=== PATIENT | male | born 1960 | race Caucasian/White ===

== ENCOUNTER 2018-01-16 13:44 | Inpatient (IN) | payer OTHER ==
--- NOTE | 2018-01-16 14:35 | RAD ---
HISTORY: Cough and chest pain, history of partial lobectomy COMPARISONS: May 15, 2016, CTA dated June 04, 2014 VIEWS: 1: frontal portable view of the chest at 2:20 PM FINDINGS: LINES AND TUBES: None. CARDIOMEDIASTINAL SILHOUETTE: There is enlargement of the pulmonary artery on the right. Surgical clips are noted of the left hilum. PLEURA: The costophrenic angles are sharp. No pleural abnormalities are noted. LUNG PARENCHYMA: There is diffuse emphysematous change. ABDOMEN: The upper abdomen is clear. There is no subphrenic gas. BONES AND SOFT TISSUES: No bone or soft tissue abnormalities are noted. IMPRESSION: 1. EMPHYSEMA. 2. POSTOPERATIVE CHANGE. 3. ENLARGEMENT OF THE PULMONARY ARTERIES SUGGESTIVE OF PULMONARY ARTERIAL HYPERTENSION.
[2018-01-16] MEDS ORDERED: methylPREDNISolone 125 MG* 2 ML VIAL IV ONE (15:00)
[2018-01-16] MEDS ORDERED: Albuterol/Ipratropium NEB.SOL* Albuterol 2.5 MG/Ipratropium 0.5 MG 3 ML INH ONE ×2 (15:00→15:56)
[2018-01-16 16:35] LABS: ABS Basophils 0 10^3/ul (0-0.2); ABS Eosinophils 0.1 10^3/ul (0-0.6); ABS Lymphocytes 1.7 10^3/ul (1.0-4.8); ABS Monocytes 1.3 10^3/ul (0-0.8); ABS Neutrophils 9.5 10^3/ul (1.5-7.7); ABS Nucleated RBC 0 10^3/ul; Eosinophil % 0.5 % (0-6); Hematocrit 42 % (42-52); Hemoglobin 13.8 g/dl (14.0-18.0); Lymphocyte % 13.3 % (25-47); Mean Corpuscular HGB Conc 33 g/dl (31-36); Mean Corpuscular Hemoglobin 32 pg (27-31); Mean Corpuscular Volume 96 fL (80-94); Nucleated Red Blood Cells % 0.2; Red Cell Distribution Width 14 % (10.5-15); White Blood Count 12.6 10^3/ul (3.5-10.8)
[2018-01-16] MEDS ORDERED: Aspirin TAB* 325 MG PO ONE (16:58)
[2018-01-16] MEDS ORDERED: Aspirin 81 mg CHEW TAB* 81 MG TAB.CHEW ONE (17:16)
--- NOTE | 2018-01-16 18:21 | ED ---
Bryon Lu Julia, scribed for Tuan Wall on 01/16/18 at 1458 . Shortness of Breath - HPI Summary HPI Summary: This patient is a 57 year old M presenting to [facility] with a chief complaint of SOB and chest pain for the past with week with green productive cough. Pain is 7 /10 in severity. SHx of smoking. PMHx of COPD. - History of Current Complaint Chief Complaint: EDChestPainROMI Time Seen by Provider: 01/16/18 14:52 Hx Obtained From: Patient Onset/Duration: Lasting Weeks Timing: Constant Dyspnea At: Rest Associated Signs & Symptoms: Cough (Productive), Chest Pain w/Cough Related History: Similar Episode - COPD - Allergy/Home Medications Allergies/Adverse Reactions: Allergies Allergy/AdvReac Type Severity Reaction Status Date / Time No Known Allergies Allergy Verified 05/15/16 12:18 Home Medications: Home Medications Ibuprofen TAB* [Advil TAB*] 400 - 600 mg PO Q8H PRN 01/16/18 [History Confirmed 01/16/18] PMH/Surg Hx/FS Hx/Imm Hx Endocrine/Hematology History: Denies: Hx Diabetes Cardiovascular History: Denies: Hx Congestive Heart Failure, Hx Hypertension Respiratory History: Reports: Hx Chronic Bronchitis, Hx Chronic Obstructive Pulmonary Disease (COPD), Hx Lung Cancer, Hx Pneumonia, Other Respiratory Problems/Disorders - partial lobectomy History: Denies: Hx Renal Disease Neurological History: Reports: Hx Headaches - Cancer History Cancer Type, Location and Year: [facility] [place] dx 2008 - Surgical History Surgery Procedure, Year, and Place: Partial Left lobectomy 05/2009, appendectomy 1996 Hx Anesthesia Reactions: No Infectious Disease History: No Infectious Disease History: Denies: Traveled Outside the [place] in Last 30 Days - Family History Known Family History: Positive: Hypertension - Social History Alcohol Use: Occasionally Hx Substance Use: No Substance Use Type: Reports: None Hx Tobacco Use: Yes Smoking Status (MU): Heavy Every Day Tobacco Smoker Review of Systems Positive: Chest Pain Positive: Shortness Of Breath, Cough All Other Systems Reviewed And Are Negative: Yes Physical Exam - Summary Physical Exam Summary: Appearance: Well appearing, no pain distress Skin: warm, dry, reflects adequate perfusion Head/face: normal Eyes: EOMI, GEMINI ENT: normal Neck: supple, non-tender Respiratory: bilateral wheezes Cardiovascular: RRR, pulses symmetrical Abdomen: non-tender, soft Bowel: present Musculoskeletal: normal, strength/ROM intact Neuro: normal, sensory motor intact, A&Ox3 Triage Information Reviewed: Yes Vital Signs On Initial Exam: Initial Vitals Temp Pulse Resp BP Pulse Ox 98.2 F 100 22 99/73 92 01/16/18 14:11 01/16/18 14:11 01/16/18 14:11 01/16/18 14:11 01/16/18 14:11 Vital Signs Reviewed: Yes Diagnostics - Vital Signs Vital Signs Temp Pulse Resp BP Pulse Ox 01/16/18 14:11 98.2 F 100 22 99/73 92 - Laboratory Lab Results: Lab Results 01/16/18 01/16/18 01/16/18 Range/Units 15:29 15:29 15:29 WBC 12.6 H (3.5-10.8) 10^3/ul RBC 4.40 (4.0-5.4) 10^6/ul Hgb 13.8 L (14.0-18.0) g/dl Hct 42 (42-52) % MCV 96 H (80-94) fL MCH 32 H (27-31) pg MCHC 33 (31-36) g/dl RDW 14 (10.5-15) % Plt Count (150-450) 10^3/ul MPV TNP Neut % (Auto) 75.2 (38-83) % Lymph % (Auto) 13.3 L (25-47) % [place] % (Auto) 10.7 H (0-7) % Eos % (Auto) 0.5 (0-6) % Baso % (Auto) 0.3 (0-2) % Absolute Neuts (auto) 9.5 H (1.5-7.7) 10^3/ul Absolute Lymphs (auto) 1.7 (1.0-4.8) 10^3/ul Absolute Monos (auto) 1.3 H (0-0.8) 10^3/ul Absolute Eos (auto) 0.1 (0-0.6) 10^3/ul Absolute Basos (auto) 0 (0-0.2) 10^3/ul Absolute Nucleated RBC 0 10^3/ul Nucleated RBC % 0.2 Sodium (139-145) mmol/L Potassium (3.5-5.0) mmol/L Chloride (101-111) mmol/L Carbon Dioxide (22-32) mmol/L Anion Gap (2-11) mmol/L BUN (6-24) mg/dL Creatinine (0.67-1.17) mg/dL Est GFR ( Amer) (>60) Est GFR (Non-Af Amer) (>60) BUN/Creatinine Ratio (8-20) Glucose (70-100) mg/dL Lactic Acid 1.6 (0.5-2.0) mmol/L Calcium (8.6-10.3) mg/dL Total Bilirubin (0.2-1.0) mg/dL AST (13-39) U/L ALT (7-52) U/L Alkaline Phosphatase (34-104) U/L Troponin I (<0.04) ng/mL B-Natriuretic Peptide 44 ( - 100) pg/mL Total Protein (6.4-8.9) g/dL Albumin (3.2-5.2) g/dL Globulin (2-4) g/dL Albumin/Globulin Ratio (1-3) 01/16/18 01/16/18 Range/Units 15:30 17:19 WBC (3.5-10.8) 10^3/ul RBC (4.0-5.4) 10^6/ul Hgb (14.0-18.0) g/dl Hct (42-52) % MCV (80-94) fL MCH (27-31) pg MCHC (31-36) g/dl RDW (10.5-15) % Plt Count (150-450) 10^3/ul MPV Neut % (Auto) (38-83) % Lymph % (Auto) (25-47) % [place] % (Auto) (0-7) % Eos % (Auto) (0-6) % Baso % (Auto) (0-2) % Absolute Neuts (auto) (1.5-7.7) 10^3/ul Absolute Lymphs (auto) (1.0-4.8) 10^3/ul Absolute Monos (auto) (0-0.8) 10^3/ul Absolute Eos (auto) (0-0.6) 10^3/ul Absolute Basos (auto) (0-0.2) 10^3/ul Absolute Nucleated RBC 10^3/ul Nucleated RBC % Sodium 139 (139-145) mmol/L Potassium 4.0 (3.5-5.0) mmol/L Chloride 100 L (101-111) mmol/L Carbon Dioxide 31 (22-32) mmol/L Anion Gap 8 (2-11) mmol/L BUN 12 (6-24) mg/dL Creatinine 0.73 (0.67-1.17) mg/dL Est GFR ( Amer) 141.4 (>60) Est GFR (Non-Af Amer) 110.0 (>60) BUN/Creatinine Ratio 16.4 (8-20) Glucose 93 (70-100) mg/dL Lactic Acid (0.5-2.0) mmol/L Calcium 9.6 (8.6-10.3) mg/dL Total Bilirubin 0.50 (0.2-1.0) mg/dL AST 27 (13-39) U/L ALT 19 (7-52) U/L Alkaline Phosphatase 59 (34-104) U/L Troponin I 0.04 H* 0.00 (<0.04) ng/mL B-Natriuretic Peptide ( - 100) pg/mL Total Protein 8.0 (6.4-8.9) g/dL Albumin 4.6 (3.2-5.2) g/dL Globulin 3.4 (2-4) g/dL Albumin/Globulin Ratio 1.4 (1-3) Result Diagrams: 01/16/18 15:29 01/16/18 15:30 Lab Statement: Any lab studies that have been ordered have been reviewed, and results considered in the medical decision making process. - Radiology CXR Radiology Interpretation Completed By: Radiologist - 1. EMPHYSEMA. 2. POSTOPERATIVE CHANGE. 3. ENLARGEMENT OF THE PULMONARY ARTERIES SUGGESTIVE OF PULMONARY ARTERIAL HYPERTENSION. ED Physician has reviewed this report. - EKG 1408 Cardiac Rate: NL EKG Rhythm: Sinus Rhythm - 86 BPM EKG Interpretation: no acute changes Course/Dx - Course Course Of Treatment: 57 year old M presenting to [facility] with a chief complaint of SOB and chest pain for the past with week with green productive cough. Pain is 7/10 in severity. SHx of smoking. PMHx of COPD. An EKG reveals no acute findings. A CXR reveals, as per radiologist "1. EMPHYSEMA. 2. POSTOPERATIVE CHANGE. 3. ENLARGEMENT OF THE PULMONARY ARTERIES SUGGESTIVE OF PULMONARY ARTERIAL HYPERTENSION." Bloodowork reveals a troponin of 0.04. Patient is given Solu-Medrol, ASA [id number], and multiple nebulizer treatments. Dr. Sweeney agrees to admit this patient. - Diagnoses Differential Diagnosis/HQI/PQRI: Positive: Asthma, CHF, COPD Exacerbation, [place], Pneumonia Provider Diagnoses: Elevated troponin, Chest pain, COPD exacerbation - Physician Notifications Discussed Care of Patient With: Bee Sweeney - hospitalist Time Discussed With Above Provider: 17:23 Instructed by Provider To: Admit As Inpatient - Critical Care Time Critical Care Time: 30-74 min Discharge - Sign-Out/Discharge Documenting (check all that apply): Discharge/Admit/Transfer - Discharge Plan Condition: Stable Disposition: ADMITTED TO [facility] Referrals: Sherwin Storey MD [Medical Doctor] - - Billing Disposition and Condition Condition: STABLE Disposition: [facility] [place] The documentation as recorded by the Bryon alcantar Julia accurately reflects the service I personally performed and the decisions made by Mae smith Emmanuel.
[2018-01-16] MEDS ORDERED: Albuterol/Ipratropium NEB.SOL* Albuterol 2.5 MG/Ipratropium 0.5 MG 3 ML INH PRN (18:35)
[2018-01-16] MEDS ORDERED: Mouth Piece, Nicotine* 1 EACH CARTRIDGE INH PRN ×2 (18:44)
[2018-01-16] MEDS ORDERED: Nicotine Inhaler* 10 MG AMP INH PRN (18:44)
[2018-01-16] MEDS ORDERED: NS 0.9% 1000 ML* 1,000 ML IV SCH (18:45)
[2018-01-16] MEDS: Albuterol/Ipratropium NEB.SOL* Albuterol 2.5 MG/Ipratropium 0.5 MG 3 ML INH SCH ×2 (19:54→23:26)
[2018-01-16] MEDS: Nicotine PATCH 21 MG/24 HR* PATCH TRANSDERM SCH (21:38)
[2018-01-16] MEDS: methylPREDNISolone SOD 40 MG* 1 ML VIAL IV SCH (21:42)
[2018-01-16] MEDS: Heparin VIAL(*) 5000 UNITS/ML VIAL (FIVE THOUSAND) SUBCUT SCH (21:44)
[2018-01-16] MEDS: Azithromycin IV(*) 500 MG in NS 0.9% 250 ML* 250 ML IVPB SCH (21:49)
[2018-01-16] MEDS: Acetaminophen TAB* 325 MG PO PRN (23:15)
--- NOTE | 2018-01-17 01:25 | HP ---
CC: Dr. Gore * HISTORY AND PHYSICAL: DATE OF ADMISSION: 01/16/18 PRIMARY CARE PROVIDER: Dr. Gore. Also, the patient had not seen his primary care provider for several years. CHIEF COMPLAINT: Shortness of breath and chest pain. HISTORY OF PRESENT ILLNESS: Rodrigo Graves is a 57-year-old male with a history of COPD as well as squamous cell lung cancer, status post left upper lobectomy in the remote past, who presented to the hospital complaining of shortness of breath. The patient also stated that he had episodes of chest pain on the left. Chest pain was "small" a couple of days ago. He localizes it in the left upper chest. The patient stated that he gets "attacks" when he cannot breathe. He uses albuterol inhaler only and he has not seen his provider for several years now. He is going to be admitted with a diagnosis of COPD exacerbation. PAST MEDICAL HISTORY: 1. History of COPD, not treated. 2. History of squamous cell lung cancer, status post left upper lobectomy. 3. History of chronic pain. 4. History of tobacco abuse. MEDICATIONS: 1. Ibuprofen on a p.r.n. basis. 2. Albuterol 2 puffs every 4 hours p.r.n. ALLERGIES: No known drug allergies. FAMILY HISTORY: Father's history is unknown. Mother has history of "eye problems." SOCIAL HISTORY: The patient has a history of [id number] smoking. He started smoking when he was 13 and he still continues to smoke approximately 2 packs a day. He denies any alcohol or drug use. He lives with a roommate in an apartment. He lists his brother, Ayan Graves, as his surrogate. REVIEW OF SYSTEMS: Please see history of present illness. The patient complains of shortness of breath. Denies any significant cough. He denies fevers. He has lost "some weight," but he is unable to tell me how much. He stated that usually he is in good health and he is able to bicycle, but for the past several days, he was unable to. The patient stated that he was offered to be on oxygen several years ago, but he refused. He has not seen a physician for quite some time. The remaining 12 systems were reviewed with the patient and were otherwise negative. PHYSICAL EXAMINATION GENERAL: The patient is a very pleasant 57-year-old white male who has very thin body habitus. The patient is in no acute distress, tripoding during my evaluation. Alert, awake, and oriented x3. VITAL SIGNS: Blood pressure 113/76, heart rate of 80 and regular, respiratory rate 16, oxygen saturation 92% on room air when the patient arrived. Currently , he is on 4 L of oxygen .increased work of breathing noted. Temperature 98.2. HEENT: Head atraumatic, normocephalic. Eyes: Pupils are equal and reactive to light and accommodation. Oropharynx is clear. Mucosa moist. NECK: Supple. No JVD, no bruits bilaterally. RESPIRATORY: Distant breath sounds bilaterally. A prolonged expiratory phase in bilateral chest noted. The patient also has diffuse wheezes in bilateral mid to lower lungs. CARDIOVASCULAR: Regular rate and rhythm, tachycardia, no murmur. ABDOMEN: Soft, nontender, bowel sounds present in all 4 quadrants. EXTREMITIES: There is no edema. Pulses +2 bilaterally. There is no clubbing or cyanosis. SKIN: Ecchymotic areas of rash noted. NEUROLOGIC: Speech is clear. Cranial nerves II through XII grossly intact. Motor strength is 5/5 bilaterally. DIAGNOSTIC STUDIES/LAB DATA: Showed WBC of 12.6, hemoglobin of 13.8, hematocrit of 42, and platelets were unable to be obtained due to clumping. Sodium was 139, potassium 4.0, chloride 100, carbon dioxide 31, BUN 12, creatinine 0.7. The patient's first troponin was 0.04, second troponin was 0. The patient's portable chest x-ray, impression: " emphysema. Postoperative change. Enlargement of the pulmonary artery. Suggestion of pulmonary arterial hypertension." The patient's EKG showed normal sinus rhythm with a heart rate of 86 beats per minute with left posterior fascicular block, no acute ST changes. Also appears to have right bundle-branch block. ASSESSMENT AND PLAN: 1. The patient's initial troponin was 0.04, but the second one was 0. Those troponins were 2 hours apart. At this point, I do not believe that the first troponin was significantly elevated, and if the lab value was actually correct, the mild elevation is likely related to increased work of breathing and hypoxemia and not cardiac disease. Nevertheless, I will obtain a transthoracic echocardiogram and place the patient on telemetry monitored bed for further evaluation. 2. The patient's chronic obstructive pulmonary disease exacerbation is rather severe. The patient is tripoding on evaluation. He is going to be placed on DuoNeb on a scheduled basis. He is going to be placed on azithromycin to treat his bronchitis and for antiinflammatory properties. 3. The patient still smokes up to 2 packs a day. He is going to be placed on nicotine patch and inhalers. 4. DVT prophylaxis: The patient is going to be placed on heparin subcutaneously. 5. The patient's code status is full and his surrogate is his brother as mentioned above. TIME SPENT: Approximately, 65 minutes were spent on admission of this patient, more than half of that time was spent [id number] with the patient during the interview and physical exam. [id number]/[facility] #: [id number] ELISEO
[2018-01-17] MEDS: Albuterol/Ipratropium NEB.SOL* Albuterol 2.5 MG/Ipratropium 0.5 MG 3 ML INH SCH ×6 (03:44→23:43)
[2018-01-17] MEDS: methylPREDNISolone SOD 40 MG* 1 ML VIAL IV SCH ×3 (04:16→19:24)
[2018-01-17] MEDS: Heparin VIAL(*) 5000 UNITS/ML VIAL (FIVE THOUSAND) SUBCUT SCH ×3 (05:34→21:04)
[2018-01-17] MEDS: Omeprazole CAP* 20 MG PO SCH (06:00)
[2018-01-17 06:12] LABS: Hematocrit 39 % (42-52); Hemoglobin 12.7 g/dl (14.0-18.0); Mean Corpuscular HGB Conc 33 g/dl (31-36); Mean Corpuscular Hemoglobin 31 pg (27-31); Mean Corpuscular Volume 96 fL (80-94); Red Blood Count 4.05 10^6/ul (4.0-5.4); Red Cell Distribution Width 14 % (10.5-15)
[2018-01-17 06:24] LABS: EGFR Non-African American 117.4 (>60)
[2018-01-17 06:48] LABS: White Blood Count 8.5 10^3/ul (3.5-10.8)
[2018-01-17 06:51] LABS: Monocytes % 2 % (0-7)
[2018-01-17 06:55] LABS: Platelet Count Platelets clumped. 10^3/ul (150-450)
--- NOTE | 2018-01-17 08:22 | PN ---
Subjective Date of Service: 01/17/18 Interval History: Pt c/o that he lost weight due to not enough money for food. When it was suggested to pt to use money that he uses to buy cigarettes with, towards food , he said "I may do that". Still requiring duonebs Q4. Feels "a little better" Objective Active Medications: Acetaminophen (Tylenol Tab*) 650 mg PO Q4H PRN PRN Reason: FEVER/PAIN Last Admin: 01/16/18 23:15 Dose: 650 mg Albuterol/Ipratropium (Duoneb (Albuterol 2.5 Mg/Ipratropium 0.5 Mg)) 1 neb INH Q2H PRN PRN Reason: SOB/WHEEZING Albuterol/Ipratropium (Duoneb (Albuterol 2.5 Mg/Ipratropium 0.5 Mg)) 1 neb INH [id number] AWAKE [facility] Last Admin: 01/17/18 08:07 Dose: 1 neb Device (Nicotine Mouth Piece*) 1 each INH .USE WITH NICOTROL PRN PRN Reason: CRAVING Heparin Sodium (Porcine) (Heparin Vial(*)) 5,000 units SUBCUT Q8HR [facility] Last Admin: 01/17/18 05:34 Dose: 5,000 units Azithromycin 500 mg/ Sodium (Chloride) 250 mls @ 250 mls/hr IVPB Q24H [facility] Last Admin: 01/16/18 21:49 Dose: 250 mls/hr Methylprednisolone Sodium Succinate (Solu-Medrol 40 Mg) 40 mg IV Q8H [facility] Last Admin: 01/17/18 04:16 Dose: 40 mg Morphine Sulfate (Morphine Vial*) 2 mg IV Q4H PRN PRN Reason: PAIN Nicotine (Nicotine Inhaler*) 10 mg INH Q2H PRN PRN Reason: CRAVING Nicotine (Nicotine Patch 21 Mg/24 Hr*) 1 patch TRANSDERM DAILY [facility] Last Admin: 01/16/18 21:38 Dose: 1 patch Omeprazole (Prilosec Cap*) 20 mg PO 30 [facility] Last Admin: 01/17/18 06:00 Dose: 20 mg Vital Signs - 8 hr 01/17/18 01/17/18 03:07 03:44 Temperature 97.7 F Pulse Rate 107 95 Respiratory 22 20 Rate Blood Pressure 114/65 (mmHg) O2 Sat by Pulse 93 92 Oximetry Oxygen Devices in Use Now: Nasal Cannula Appearance: 57 yo M in nAD, AAOx3, thin body habitus, barrell chest Eyes: No Scleral Icterus, PERRLA Ears/Nose/Mouth/Throat: NL Teeth, Lips, Gums, Mucous Membranes Moist Neck: NL Appearance and Movements; NL JVP, Trachea Midline Respiratory: Symmetrical Chest Expansion and Respiratory Effort, - - diffuse b/ l wheezes Cardiovascular: NL Sounds; No Murmurs; No JVD, RRR Abdominal: NL Sounds; No Tenderness; No Distention Lymphatic: No Cervical Adenopathy Extremities: No Edema, No Clubbing, Cyanosis Skin: No Rash or Ulcers, No Nodules or Sclerosis Neurological: Alert and Oriented x 3, NL Muscle Strength and Tone Result Diagrams: 01/17/18 05:36 01/17/18 05:37 Additional Lab and Data: Lab Results 01/16/18 01/16/18 01/16/18 Range/Units 15:29 15:29 15:29 WBC 12.6 H (3.5-10.8) 10^3/ul RBC 4.40 (4.0-5.4) 10^6/ul Hgb 13.8 L (14.0-18.0) g/dl Hct 42 (42-52) % MCV 96 H (80-94) fL MCH 32 H (27-31) pg MCHC 33 (31-36) g/dl RDW 14 (10.5-15) % Plt Count (150-450) 10^3/ul MPV TNP Neut % (Auto) 75.2 (38-83) % Lymph % (Auto) 13.3 L (25-47) % [place] % (Auto) 10.7 H (0-7) % Eos % (Auto) 0.5 (0-6) % Baso % (Auto) 0.3 (0-2) % Absolute Neuts (auto) 9.5 H (1.5-7.7) 10^3/ul Absolute Lymphs (auto) 1.7 (1.0-4.8) 10^3/ul Absolute Monos (auto) 1.3 H (0-0.8) 10^3/ul Absolute Eos (auto) 0.1 (0-0.6) 10^3/ul Absolute Basos (auto) 0 (0-0.2) 10^3/ul Absolute Nucleated RBC 0 10^3/ul Nucleated RBC % 0.2 Sodium (139-145) mmol/L Potassium (3.5-5.0) mmol/L Chloride (101-111) mmol/L Carbon Dioxide (22-32) mmol/L Anion Gap (2-11) mmol/L BUN (6-24) mg/dL Creatinine (0.67-1.17) mg/dL Est GFR ( Amer) (>60) Est GFR (Non-Af Amer) (>60) BUN/Creatinine Ratio (8-20) Glucose (70-100) mg/dL Lactic Acid 1.6 (0.5-2.0) mmol/L Calcium (8.6-10.3) mg/dL Total Bilirubin (0.2-1.0) mg/dL AST (13-39) U/L ALT (7-52) U/L Alkaline Phosphatase (34-104) U/L Troponin I (<0.04) ng/mL B-Natriuretic Peptide 44 ( - 100) pg/mL Total Protein (6.4-8.9) g/dL Albumin (3.2-5.2) g/dL Globulin (2-4) g/dL Albumin/Globulin Ratio (1-3) 01/16/1801/16/ Range/Units 15:30 17:19 WBC (3.5-10.8) 10^3/ul RBC (4.0-5.4) 10^6/ul Hgb (14.0-18.0) g/dl Hct (42-52) % MCV (80-94) fL MCH (27-31) pg MCHC (31-36) g/dl RDW (10.5-15) % Plt Count (150-450) 10^3/ul MPV Neut % (Auto) (38-83) % Lymph % (Auto) (25-47) % [place] % (Auto) (0-7) % Eos % (Auto) (0-6) % Baso % (Auto) (0-2) % Absolute Neuts (auto) (1.5-7.7) 10^3/ul Absolute Lymphs (auto) (1.0-4.8) 10^3/ul Absolute Monos (auto) (0-0.8) 10^3/ul Absolute Eos (auto) (0-0.6) 10^3/ul Absolute Basos (auto) (0-0.2) 10^3/ul Absolute Nucleated RBC 10^3/ul Nucleated RBC % Sodium 139 (139-145) mmol/L Potassium 4.0 (3.5-5.0) mmol/L Chloride 100 L (101-111) mmol/L Carbon Dioxide 31 (22-32) mmol/L Anion Gap 8 (2-11) mmol/L BUN 12 (6-24) mg/dL Creatinine 0.73 (0.67-1.17) mg/dL Est GFR ( Amer) 141.4 (>60) Est GFR (Non-Af Amer) 110.0 (>60) BUN/Creatinine Ratio 16.4 (8-20) Glucose 93 (70-100) mg/dL Lactic Acid (0.5-2.0) mmol/L Calcium 9.6 (8.6-10.3) mg/dL Total Bilirubin 0.50 (0.2-1.0) mg/dL AST 27 (13-39) U/L ALT 19 (7-52) U/L Alkaline Phosphatase 59 (34-104) U/L Troponin I 0.04 H* 0.00 (<0.04) ng/mL B-Natriuretic Peptide ( - 100) pg/mL Total Protein 8.0 (6.4-8.9) g/dL Albumin 4.6 (3.2-5.2) g/dL Globulin 3.4 (2-4) g/dL Albumin/Globulin Ratio 1.4 (1-3) Assess/Plan/Problems-Billing Assessment: 57 yo M with h/o lobectomy for lung ca and untreated COPD presents with exacerbation - Patient Problems (1) COPD with exacerbation Comment: severe exacerbation cont Duoneb and solu Medrol will require severeal days of IV steroids Cont Azithro (2) DVT prophylaxis Comment: HSQ (3) Tobacco abuse counseling Comment: counseled 5 min at admission and 4 min today cont nicotine replacement Status and Disposition: inpatient
[2018-01-17] MEDS: Nicotine PATCH 21 MG/24 HR* PATCH TRANSDERM SCH (09:25)
[2018-01-17] MEDS: Morphine VIAL* 4 MG/ML VIAL (1 ml vial) IV PRN ×2 (11:27→17:30)
[2018-01-17] MEDS: Azithromycin IV(*) 500 MG in NS 0.9% 250 ML* 250 ML IVPB SCH (21:04)
[2018-01-18] MEDS: methylPREDNISolone SOD 40 MG* 1 ML VIAL IV SCH ×3 (02:49→19:42)
[2018-01-18] MEDS: Albuterol/Ipratropium NEB.SOL* Albuterol 2.5 MG/Ipratropium 0.5 MG 3 ML INH SCH ×5 (03:32→19:17)
[2018-01-18 05:39] LABS: Hematocrit 40 % (42-52); Mean Corpuscular HGB Conc 33 g/dl (31-36); Mean Corpuscular Hemoglobin 32 pg (27-31); Mean Corpuscular Volume 96 fL (80-94); Red Blood Count 4.13 10^6/ul (4.0-5.4); Red Cell Distribution Width 15 % (10.5-15); White Blood Count 12.7 10^3/ul (3.5-10.8)
[2018-01-18] MEDS: Heparin VIAL(*) 5000 UNITS/ML VIAL (FIVE THOUSAND) SUBCUT SCH ×3 (05:41→21:45)
[2018-01-18 06:11] LABS: ABS Basophils 0 10^3/ul (0-0.2); ABS Eosinophils 0 10^3/ul (0-0.6); ABS Lymphocytes 0.3 10^3/ul (1.0-4.8); ABS Monocytes 0.5 10^3/ul (0-0.8); ABS Neutrophils 11.8 10^3/ul (1.5-7.7); ABS Nucleated RBC 0 10^3/ul; Eosinophil % 0 % (0-6); Lymphocyte % 2.7 % (25-47); Nucleated Red Blood Cells % 0; Platelet Count Platelets clumped. 10^3/ul (150-450)
[2018-01-18] MEDS: Omeprazole CAP* 20 MG PO SCH (07:55)
[2018-01-18] MEDS: Nicotine PATCH 21 MG/24 HR* PATCH TRANSDERM SCH (07:56)
[2018-01-18] MEDS: Morphine VIAL* 4 MG/ML VIAL (1 ml vial) IV PRN ×2 (13:54→21:43)
--- NOTE | 2018-01-18 18:02 | PN ---
Subjective Date of Service: 01/18/18 Interval History: Reports doing "OK", still with occasional SOB with exertion. Denies dyspnea at rest, orthopnea, cough, fever or chills. Family History: Unchanged from Admission Social History: Unchanged from Admission Past Medical History: Unchanged from Admission Objective Active Medications: Acetaminophen (Tylenol Tab*) 650 mg PO Q4H PRN PRN Reason: FEVER/PAIN Last Admin: 01/16/18 23:15 Dose: 650 mg Albuterol/Ipratropium (Duoneb (Albuterol 2.5 Mg/Ipratropium 0.5 Mg)) 1 neb INH Q2H PRN PRN Reason: SOB/WHEEZING Albuterol/Ipratropium (Duoneb (Albuterol 2.5 Mg/Ipratropium 0.5 Mg)) 1 neb INH [id number] AWAKE [facility] Last Admin: 01/18/18 16:05 Dose: 1 neb Device (Nicotine Mouth Piece*) 1 each INH .USE WITH NICOTROL PRN PRN Reason: CRAVING Heparin Sodium (Porcine) (Heparin Vial(*)) 5,000 units SUBCUT Q8HR [facility] Last Admin: 01/18/18 13:54 Dose: 5,000 units Azithromycin 500 mg/ Sodium (Chloride) 250 mls @ 250 mls/hr IVPB Q24H [facility] Last Admin: 01/17/18 21:04 Dose: 250 mls/hr Methylprednisolone Sodium Succinate (Solu-Medrol 40 Mg) 40 mg IV Q8H [facility] Last Admin: 01/18/18 10:32 Dose: 40 mg Morphine Sulfate (Morphine Vial*) 2 mg IV Q4H PRN PRN Reason: PAIN Last Admin: 01/18/18 13:54 Dose: 2 mg Nicotine (Nicotine Inhaler*) 10 mg INH Q2H PRN PRN Reason: CRAVING Nicotine (Nicotine Patch 21 Mg/24 Hr*) 1 patch TRANSDERM DAILY [facility] Last Admin: 01/18/18 07:56 Dose: 1 patch Omeprazole (Prilosec Cap*) 20 mg PO 0730 [facility] Last Admin: 01/18/18 07:55 Dose: 20 mg Vital Signs - 8 hr 01/18/18 01/18/18 01/18/18 11:15 11:53 13:54 Temperature 97.6 F Pulse Rate 92 89 Respiratory 16 16 20 Rate Blood Pressure 103/68 (mmHg) O2 Sat by Pulse 97 99 Oximetry 01/18/18 01/18/18 15:05 16:07 Temperature 97.9 F Pulse Rate 88 84 Respiratory 18 18 Rate Blood Pressure 104/70 (mmHg) O2 Sat by Pulse 96 96 Oximetry Oxygen Devices in Use Now: Nasal Cannula Appearance: Appears comfortable and in NAD. Eyes: No Scleral Icterus, PERRLA Ears/Nose/Mouth/Throat: Clear Oropharnyx, Mucous Membranes Moist Neck: NL Appearance and Movements; NL JVP, Trachea Midline Respiratory: Symmetrical Chest Expansion and Respiratory Effort - Mild diffuse expiratory wheezes noted. Cardiovascular: NL Sounds; No Murmurs; No JVD, RRR Abdominal: NL Sounds; No Tenderness; No Distention Extremities: No Edema Skin: No Rash or Ulcers Neurological: Alert and Oriented x 3, NL Sensation, NL Muscle Strength and Tone Nutrition: Taking PO's Result Diagrams: 01/18/18 05:21 01/17/18 05:37 Additional Lab and Data: Lab Results 01/16/18 01/16/18 01/16/18 Range/Units 15:29 15:29 15:29 WBC 12.6 H (3.5-10.8) 10^3/ul RBC 4.40 (4.0-5.4) 10^6/ul Hgb 13.8 L (14.0-18.0) g/dl Hct 42 (42-52) % MCV 96 H (80-94) fL MCH 32 H (27-31) pg MCHC 33 (31-36) g/dl RDW 14 (10.5-15) % Plt Count (150-450) 10^3/ul MPV TNP Neut % (Auto) 75.2 (38-83) % Lymph % (Auto) 13.3 L (25-47) % [place] % (Auto) 10.7 H (0-7) % Eos % (Auto) 0.5 (0-6) % Baso % (Auto) 0.3 (0-2) % Absolute Neuts (auto) 9.5 H (1.5-7.7) 10^3/ul Absolute Lymphs (auto) 1.7 (1.0-4.8) 10^3/ul Absolute Monos (auto) 1.3 H (0-0.8) 10^3/ul Absolute Eos (auto) 0.1 (0-0.6) 10^3/ul Absolute Basos (auto) 0 (0-0.2) 10^3/ul Absolute Nucleated RBC 0 10^3/ul Nucleated RBC % 0.2 Sodium (139-145) mmol/L Potassium (3.5-5.0) mmol/L Chloride (101-111) mmol/L Carbon Dioxide (22-32) mmol/L Anion Gap (2-11) mmol/L BUN (6-24) mg/dL Creatinine (0.67-1.17) mg/dL Est GFR ( Amer) (>60) Est GFR (Non-Af Amer) (>60) BUN/Creatinine Ratio (8-20) Glucose (70-100) mg/dL Lactic Acid 1.6 (0.5-2.0) mmol/L Calcium (8.6-10.3) mg/dL Total Bilirubin (0.2-1.0) mg/dL AST (13-39) U/L ALT (7-52) U/L Alkaline Phosphatase (34-104) U/L Troponin I (<0.04) ng/mL B-Natriuretic Peptide 44 ( - 100) pg/mL Total Protein (6.4-8.9) g/dL Albumin (3.2-5.2) g/dL Globulin (2-4) g/dL Albumin/Globulin Ratio (1-3) 01/16/01/16/18 Range/Units 15:30 17:19 WBC (3.5-10.8) 10^3/ul RBC (4.0-5.4) 10^6/ul Hgb (14.0-18.0) g/dl Hct (42-52) % MCV (80-94) fL MCH (27-31) pg MCHC (31-36) g/dl RDW (10.5-15) % Plt Count (150-450) 10^3/ul MPV Neut % (Auto) (38-83) % Lymph % (Auto) (25-47) % [place] % (Auto) (0-7) % Eos % (Auto) (0-6) % Baso % (Auto) (0-2) % Absolute Neuts (auto) (1.5-7.7) 10^3/ul Absolute Lymphs (auto) (1.0-4.8) 10^3/ul Absolute Monos (auto) (0-0.8) 10^3/ul Absolute Eos (auto) (0-0.6) 10^3/ul Absolute Basos (auto) (0-0.2) 10^3/ul Absolute Nucleated RBC 10^3/ul Nucleated RBC % Sodium 139 (139-145) mmol/L Potassium 4.0 (3.5-5.0) mmol/L Chloride 100 L (101-111) mmol/L Carbon Dioxide 31 (22-32) mmol/L Anion Gap 8 (2-11) mmol/L BUN 12 (6-24) mg/dL Creatinine 0.73 (0.67-1.17) mg/dL Est GFR ( Amer) 141.4 (>60) Est GFR (Non-Af Amer) 110.0 (>60) BUN/Creatinine Ratio 16.4 (8-20) Glucose 93 (70-100) mg/dL Lactic Acid (0.5-2.0) mmol/L Calcium 9.6 (8.6-10.3) mg/dL Total Bilirubin 0.50 (0.2-1.0) mg/dL AST 27 (13-39) U/L ALT 19 (7-52) U/L Alkaline Phosphatase 59 (34-104) U/L Troponin I 0.04 H* 0.00 (<0.04) ng/mL B-Natriuretic Peptide ( - 100) pg/mL Total Protein 8.0 (6.4-8.9) g/dL Albumin 4.6 (3.2-5.2) g/dL Globulin 3.4 (2-4) g/dL Albumin/Globulin Ratio 1.4 (1-3) Microbiology and Other Data: . Diagnostic Imaging: . EKG Data: . Assess/Plan/Problems-Billing Assessment: 57 yo M with h/o lobectomy for lung CA and untreated COPD presents with exacerbation - Patient Problems (1) COPD with exacerbation Current Visit: Yes Status: Acute Comment: severe exacerbation cont Duoneb and solu Medrol will require severeal days of IV steroids Cont Azithro (2) Tobacco abuse counseling Current Visit: Yes Status: Acute Comment: cont nicotine replacement (3) Smoker Current Visit: No Status: Chronic (4) DVT prophylaxis Current Visit: Yes Status: Acute Code(s): [id number] - SNOMED Code(s): 821637732 Comment: HSQ (5) Full code status Current Visit: Yes Status: Acute Status and Disposition: inpatient. Anticipate discharge when medically stable.
[2018-01-18] MEDS: Acetaminophen TAB* 325 MG PO PRN (20:05)
[2018-01-18] MEDS: Azithromycin IV(*) 500 MG in NS 0.9% 250 ML* 250 ML IVPB SCH (21:44)
[2018-01-19] MEDS: Albuterol/Ipratropium NEB.SOL* Albuterol 2.5 MG/Ipratropium 0.5 MG 3 ML INH SCH ×7 (00:05→23:26)
[2018-01-19] MEDS: Morphine VIAL* 4 MG/ML VIAL (1 ml vial) IV PRN (02:52)
[2018-01-19] MEDS: methylPREDNISolone SOD 40 MG* 1 ML VIAL IV SCH ×3 (02:54→19:18)
[2018-01-19] MEDS: Heparin VIAL(*) 5000 UNITS/ML VIAL (FIVE THOUSAND) SUBCUT SCH ×3 (06:27→21:35)
[2018-01-19] MEDS: Nicotine PATCH 21 MG/24 HR* PATCH TRANSDERM SCH (08:11)
[2018-01-19] MEDS: Omeprazole CAP* 20 MG PO SCH (08:12)
--- NOTE | 2018-01-19 12:11 | PN ---
Subjective Date of Service: 01/19/18 Interval History: Patient was seen and examined at bedside. Reports some improvement in his SOB. Denies dyspnea at rest, chest pain or wheezing. No fever or chills. He has no complaints today. Family History: Unchanged from Admission Social History: Unchanged from Admission Past Medical History: Unchanged from Admission Objective Active Medications: Acetaminophen (Tylenol Tab*) 650 mg PO Q4H PRN PRN Reason: FEVER/PAIN Last Admin: 01/18/18 20:05 Dose: 650 mg Albuterol/Ipratropium (Duoneb (Albuterol 2.5 Mg/Ipratropium 0.5 Mg)) 1 neb INH Q2H PRN PRN Reason: SOB/WHEEZING Last Admin: 01/19/18 01:19 Dose: 1 neb Albuterol/Ipratropium (Duoneb (Albuterol 2.5 Mg/Ipratropium 0.5 Mg)) 1 neb INH [id number] AWAKE [facility] Last Admin: 01/19/18 08:11 Dose: 1 neb Device (Nicotine Mouth Piece*) 1 each INH .USE WITH NICOTROL PRN PRN Reason: CRAVING Heparin Sodium (Porcine) (Heparin Vial(*)) 5,000 units SUBCUT Q8HR [facility] Last Admin: 01/19/18 06:27 Dose: 5,000 units Azithromycin 500 mg/ Sodium (Chloride) 250 mls @ 250 mls/hr IVPB Q24H [facility] Last Admin: 01/18/18 21:44 Dose: 250 mls/hr Methylprednisolone Sodium Succinate (Solu-Medrol 40 Mg) 40 mg IV Q8H [facility] Last Admin: 01/19/18 10:27 Dose: 40 mg Morphine Sulfate (Morphine Vial*) 2 mg IV Q4H PRN PRN Reason: PAIN Last Admin: 01/19/18 02:52 Dose: 2 mg Nicotine (Nicotine Inhaler*) 10 mg INH Q2H PRN PRN Reason: CRAVING Nicotine (Nicotine Patch 21 Mg/24 Hr*) 1 patch TRANSDERM DAILY [facility] Last Admin: 01/19/18 08:11 Dose: 1 patch Omeprazole (Prilosec Cap*) 20 mg PO 0730 [facility] Last Admin: 01/19/18 08:12 Dose: 20 mg Vital Signs - 8 hr 01/19/18 01/19/18 01/19/18 06:27 07:32 09:22 Temperature 97.6 F Pulse Rate 87 87 Respiratory 18 18 19 Rate Blood Pressure 110/59 (mmHg) O2 Sat by Pulse 94 94 Oximetry Oxygen Devices in Use Now: Nasal Cannula Appearance: Appears comfortable and in NAD Eyes: No Scleral Icterus, PERRLA Ears/Nose/Mouth/Throat: Clear Oropharnyx, Mucous Membranes Moist Neck: NL Appearance and Movements; NL JVP, Trachea Midline Respiratory: - - Mild accessory muscle use. Decreased breath sounds. Minimal expiratory wheezing at the bases. Cardiovascular: NL Sounds; No Murmurs; No JVD, RRR Abdominal: NL Sounds; No Tenderness; No Distention Extremities: No Edema Skin: No Rash or Ulcers Neurological: Alert and Oriented x 3, NL Sensation, NL Muscle Strength and Tone Nutrition: Taking PO's Result Diagrams: 01/18/18 05:21 01/17/18 05:37 Additional Lab and Data: Lab Results 01/16/18 01/16/18 01/16/18 Range/Units 15:29 15:29 15:29 WBC 12.6 H (3.5-10.8) 10^3/ul RBC 4.40 (4.0-5.4) 10^6/ul Hgb 13.8 L (14.0-18.0) g/dl Hct 42 (42-52) % MCV 96 H (80-94) fL MCH 32 H (27-31) pg MCHC 33 (31-36) g/dl RDW 14 (10.5-15) % Plt Count (150-450) 10^3/ul MPV TNP Neut % (Auto) 75.2 (38-83) % Lymph % (Auto) 13.3 L (25-47) % [place] % (Auto) 10.7 H (0-7) % Eos % (Auto) 0.5 (0-6) % Baso % (Auto) 0.3 (0-2) % Absolute Neuts (auto) 9.5 H (1.5-7.7) 10^3/ul Absolute Lymphs (auto) 1.7 (1.0-4.8) 10^3/ul Absolute Monos (auto) 1.3 H (0-0.8) 10^3/ul Absolute Eos (auto) 0.1 (0-0.6) 10^3/ul Absolute Basos (auto) 0 (0-0.2) 10^3/ul Absolute Nucleated RBC 0 10^3/ul Nucleated RBC % 0.2 Sodium (139-145) mmol/L Potassium (3.5-5.0) mmol/L Chloride (101-111) mmol/L Carbon Dioxide (22-32) mmol/L Anion Gap (2-11) mmol/L BUN (6-24) mg/dL Creatinine (0.67-1.17) mg/dL Est GFR ( Amer) (>60) Est GFR (Non-Af Amer) (>60) BUN/Creatinine Ratio (8-20) Glucose (70-100) mg/dL Lactic Acid 1.6 (0.5-2.0) mmol/L Calcium (8.6-10.3) mg/dL Total Bilirubin (0.2-1.0) mg/dL AST (13-39) U/L ALT (7-52) U/L Alkaline Phosphatase (34-104) U/L Troponin I (<0.04) ng/mL B-Natriuretic Peptide 44 ( - 100) pg/mL Total Protein (6.4-8.9) g/dL Albumin (3.2-5.2) g/dL Globulin (2-4) g/dL Albumin/Globulin Ratio (1-3) 18 01/16/18 Range/Units 15:30 17:19 WBC (3.5-10.8) 10^3/ul RBC (4.0-5.4) 10^6/ul Hgb (14.0-18.0) g/dl Hct (42-52) % MCV (80-94) fL MCH (27-31) pg MCHC (31-36) g/dl RDW (10.5-15) % Plt Count (150-450) 10^3/ul MPV Neut % (Auto) (38-83) % Lymph % (Auto) (25-47) % [place] % (Auto) (0-7) % Eos % (Auto) (0-6) % Baso % (Auto) (0-2) % Absolute Neuts (auto) (1.5-7.7) 10^3/ul Absolute Lymphs (auto) (1.0-4.8) 10^3/ul Absolute Monos (auto) (0-0.8) 10^3/ul Absolute Eos (auto) (0-0.6) 10^3/ul Absolute Basos (auto) (0-0.2) 10^3/ul Absolute Nucleated RBC 10^3/ul Nucleated RBC % Sodium 139 (139-145) mmol/L Potassium 4.0 (3.5-5.0) mmol/L Chloride 100 L (101-111) mmol/L Carbon Dioxide 31 (22-32) mmol/L Anion Gap 8 (2-11) mmol/L BUN 12 (6-24) mg/dL Creatinine 0.73 (0.67-1.17) mg/dL Est GFR ( Amer) 141.4 (>60) Est GFR (Non-Af Amer) 110.0 (>60) BUN/Creatinine Ratio 16.4 (8-20) Glucose 93 (70-100) mg/dL Lactic Acid (0.5-2.0) mmol/L Calcium 9.6 (8.6-10.3) mg/dL Total Bilirubin 0.50 (0.2-1.0) mg/dL AST 27 (13-39) U/L ALT 19 (7-52) U/L Alkaline Phosphatase 59 (34-104) U/L Troponin I 0.04 H* 0.00 (<0.04) ng/mL B-Natriuretic Peptide ( - 100) pg/mL Total Protein 8.0 (6.4-8.9) g/dL Albumin 4.6 (3.2-5.2) g/dL Globulin 3.4 (2-4) g/dL Albumin/Globulin Ratio 1.4 (1-3) Microbiology and Other Data: . Diagnostic Imaging: . EKG Data: . Assess/Plan/Problems-Billing Assessment: 57 yo M with h/o lobectomy for lung CA and untreated COPD presents with exacerbation - Patient Problems (1) COPD with exacerbation Current Visit: Yes Status: Acute Comment: severe exacerbation cont Duoneb and solu Medrol will require severeal days of IV steroids Cont Azithro Clinically improving (2) Tobacco abuse counseling Current Visit: Yes Status: Acute Comment: cont nicotine replacement no craving (3) Smoker Current Visit: No Status: Chronic (4) DVT prophylaxis Current Visit: Yes Status: Acute Code(s): [id number] - SNOMED Code(s): 649377058 Comment: HSQ (5) Full code status Current Visit: Yes Status: Acute Status and Disposition: inpatient. Anticipate discharge when medically stable. Patient is homeless, [facility] director of medical services to discuss plans for discharge likely next week.
[2018-01-19] MEDS: Azithromycin IV(*) 500 MG in NS 0.9% 250 ML* 250 ML IVPB SCH (21:32)
[2018-01-20] MEDS: Albuterol/Ipratropium NEB.SOL* Albuterol 2.5 MG/Ipratropium 0.5 MG 3 ML INH SCH ×2 (03:32→08:13)
[2018-01-20] MEDS: methylPREDNISolone SOD 40 MG* 1 ML VIAL IV SCH ×2 (04:01→11:12)
[2018-01-20] MEDS: Heparin VIAL(*) 5000 UNITS/ML VIAL (FIVE THOUSAND) SUBCUT SCH ×3 (06:23→21:45)
[2018-01-20] MEDS ORDERED: Albuterol HFA INHALER* 8 gm MDI INH PRN (08:10)
[2018-01-20] MEDS: Nicotine PATCH 21 MG/24 HR* PATCH TRANSDERM SCH (08:33)
[2018-01-20] MEDS: Omeprazole CAP* 20 MG PO SCH (08:33)
[2018-01-20] MEDS: Mometasone/Formoter 200/5 MDI INH SCH ×2 (10:00→20:19)
--- NOTE | 2018-01-20 15:12 | PN ---
Subjective Date of Service: 01/20/18 Interval History: Patient seen and examined at bedside. Spoke with respiratory therapist earlier, recommended Dulera inhaler BID which seemed to add more benefits. Denies any chest pain, wheezing or SOB. He has no complaints today. Family History: Unchanged from Admission Social History: Unchanged from Admission Past Medical History: Unchanged from Admission Objective Active Medications: Acetaminophen (Tylenol Tab*) 650 mg PO Q4H PRN PRN Reason: FEVER/PAIN Last Admin: 01/18/18 20:05 Dose: 650 mg Albuterol (Ventolin Hfa Inhaler*) 2 puff INH Q4H PRN PRN Reason: SOB/WHEEZING Device (Nicotine Mouth Piece*) 1 each INH .USE WITH NICOTROL PRN PRN Reason: CRAVING Heparin Sodium (Porcine) (Heparin Vial(*)) 5,000 units SUBCUT Q8HR [facility] Last Admin: 01/20/18 06:23 Dose: 5,000 units Azithromycin 500 mg/ Sodium (Chloride) 250 mls @ 250 mls/hr IVPB Q24H [facility] Last Admin: 01/19/18 21:32 Dose: 250 mls/hr Mometasone Furoate/Formoterol Fumar (Dulera 200/5 Mdi*) 2 puff INH BID [facility] Last Admin: 01/20/18 10:00 Dose: 2 puff Morphine Sulfate (Morphine Vial*) 2 mg IV Q4H PRN PRN Reason: PAIN Last Admin: 01/19/18 02:52 Dose: 2 mg Nicotine (Nicotine Inhaler*) 10 mg INH Q2H PRN PRN Reason: CRAVING Nicotine (Nicotine Patch 21 Mg/24 Hr*) 1 patch TRANSDERM DAILY [facility] Last Admin: 01/20/18 08:33 Dose: 1 patch Omeprazole (Prilosec Cap*) 20 mg PO 0730 [facility] Last Admin: 01/20/18 08:33 Dose: 20 mg Prednisone (Deltasone Tab*) 60 mg PO DAILY [facility] Vital Signs - 8 hr 01/20/18 01/20/18 07:36 08:30 Temperature 98.0 F Pulse Rate 72 Respiratory 18 20 Rate Blood Pressure 108/73 (mmHg) O2 Sat by Pulse 100 Oximetry Oxygen Devices in Use Now: Nasal Cannula Appearance: Appears comfortable and in NAD Eyes: No Scleral Icterus, PERRLA Ears/Nose/Mouth/Throat: Clear Oropharnyx, Mucous Membranes Moist Neck: NL Appearance and Movements; NL JVP, Trachea Midline Respiratory: Symmetrical Chest Expansion and Respiratory Effort, - - No accessory muscle use. Breath sounds decreased, no wheezing noted. Cardiovascular: NL Sounds; No Murmurs; No JVD, RRR Abdominal: NL Sounds; No Tenderness; No Distention Extremities: No Edema Skin: No Rash or Ulcers Neurological: Alert and Oriented x 3, NL Sensation Nutrition: Taking PO's Result Diagrams: 01/18/18 05:21 01/17/18 05:37 Additional Lab and Data: Lab Results 01/16/18 01/16/18 01/16/18 Range/Units 15:29 15:29 15:29 WBC 12.6 H (3.5-10.8) 10^3/ul RBC 4.40 (4.0-5.4) 10^6/ul Hgb 13.8 L (14.0-18.0) g/dl Hct 42 (42-52) % MCV 96 H (80-94) fL MCH 32 H (27-31) pg MCHC 33 (31-36) g/dl RDW 14 (10.5-15) % Plt Count (150-450) 10^3/ul MPV TNP Neut % (Auto) 75.2 (38-83) % Lymph % (Auto) 13.3 L (25-47) % [place] % (Auto) 10.7 H (0-7) % Eos % (Auto) 0.5 (0-6) % Baso % (Auto) 0.3 (0-2) % Absolute Neuts (auto) 9.5 H (1.5-7.7) 10^3/ul Absolute Lymphs (auto) 1.7 (1.0-4.8) 10^3/ul Absolute Monos (auto) 1.3 H (0-0.8) 10^3/ul Absolute Eos (auto) 0.1 (0-0.6) 10^3/ul Absolute Basos (auto) 0 (0-0.2) 10^3/ul Absolute Nucleated RBC 0 10^3/ul Nucleated RBC % 0.2 Sodium (139-145) mmol/L Potassium (3.5-5.0) mmol/L Chloride (101-111) mmol/L Carbon Dioxide (22-32) mmol/L Anion Gap (2-11) mmol/L BUN (6-24) mg/dL Creatinine (0.67-1.17) mg/dL Est GFR ( Amer) (>60) Est GFR (Non-Af Amer) (>60) BUN/Creatinine Ratio (8-20) Glucose (70-100) mg/dL Lactic Acid 1.6 (0.5-2.0) mmol/L Calcium (8.6-10.3) mg/dL Total Bilirubin (0.2-1.0) mg/dL AST (13-39) U/L ALT (7-52) U/L Alkaline Phosphatase (34-104) U/L Troponin I (<0.04) ng/mL B-Natriuretic Peptide 44 ( - 100) pg/mL Total Protein (6.4-8.9) g/dL Albumin (3.2-5.2) g/dL Globulin (2-4) g/dL Albumin/Globulin Ratio (1-3) 01/16/18 01/16/18 Range/Units 15:30 17:19 WBC (3.5-10.8) 10^3/ul RBC (4.0-5.4) 10^6/ul Hgb (14.0-18.0) g/dl Hct (42-52) % MCV (80-94) fL MCH (27-31) pg MCHC (31-36) g/dl RDW (10.5-15) % Plt Count (150-450) 10^3/ul MPV Neut % (Auto) (38-83) % Lymph % (Auto) (25-47) % [place] % (Auto) (0-7) % Eos % (Auto) (0-6) % Baso % (Auto) (0-2) % Absolute Neuts (auto) (1.5-7.7) 10^3/ul Absolute Lymphs (auto) (1.0-4.8) 10^3/ul Absolute Monos (auto) (0-0.8) 10^3/ul Absolute Eos (auto) (0-0.6) 10^3/ul Absolute Basos (auto) (0-0.2) 10^3/ul Absolute Nucleated RBC 10^3/ul Nucleated RBC % Sodium 139 (139-145) mmol/L Potassium 4.0 (3.5-5.0) mmol/L Chloride 100 L (101-111) mmol/L Carbon Dioxide 31 (22-32) mmol/L Anion Gap 8 (2-11) mmol/L BUN 12 (6-24) mg/dL Creatinine 0.73 (0.67-1.17) mg/dL Est GFR ( Amer) 141.4 (>60) Est GFR (Non-Af Amer) 110.0 (>60) BUN/Creatinine Ratio 16.4 (8-20) Glucose 93 (70-100) mg/dL Lactic Acid (0.5-2.0) mmol/L Calcium 9.6 (8.6-10.3) mg/dL Total Bilirubin 0.50 (0.2-1.0) mg/dL AST 27 (13-39) U/L ALT 19 (7-52) U/L Alkaline Phosphatase 59 (34-104) U/L Troponin I 0.04 H* 0.00 (<0.04) ng/mL B-Natriuretic Peptide ( - 100) pg/mL Total Protein 8.0 (6.4-8.9) g/dL Albumin 4.6 (3.2-5.2) g/dL Globulin 3.4 (2-4) g/dL Albumin/Globulin Ratio 1.4 (1-3) Microbiology and Other Data: . Diagnostic Imaging: . EKG Data: . Assess/Plan/Problems-Billing Assessment: 57 yo M with h/o lobectomy for lung CA and untreated COPD presents with exacerbation - Patient Problems (1) COPD with exacerbation Current Visit: Yes Status: Acute Comment: - Clinically improving - Started on Durela BID in addition to Albuterol neb - Continue Azithro - Switched from Solumedrol to PO Prednisone (2) Tobacco abuse counseling Current Visit: Yes Status: Acute Comment: cont nicotine replacement no craving (3) Smoker Current Visit: No Status: Chronic (4) DVT prophylaxis Current Visit: Yes Status: Acute Code(s): [id number] - SNOMED Code(s): 235133052 Comment: HSQ (5) Full code status Current Visit: Yes Status: Acute Status and Disposition: inpatient. Anticipate discharge when medically stable. Patient is homeless, [facility]. financial services rep to discuss plans for discharge likely next week. [facility] He will likely need home oxygen upon discharge. He has used it in the past after his lobectomy, but "weaned himself off it" eventually. Anticipate discharge in 1-2 days.
[2018-01-20] MEDS: Azithromycin IV(*) 500 MG in NS 0.9% 250 ML* 250 ML IVPB SCH (21:42)
[2018-01-21] MEDS: Heparin VIAL(*) 5000 UNITS/ML VIAL (FIVE THOUSAND) SUBCUT SCH ×2 (06:34→14:14)
[2018-01-21] MEDS: Mometasone/Formoter 200/5 MDI INH SCH (07:31)
[2018-01-21] MEDS ORDERED: predniSONE TAB* 20 MG PO SCH (09:00)
[2018-01-21] MEDS: Omeprazole CAP* 20 MG PO SCH (09:06)
[2018-01-21] MEDS: Nicotine PATCH 21 MG/24 HR* PATCH TRANSDERM SCH (09:07)
[2018-01-21 16:46] VITALS: BP 102/62
--- NOTE | 2018-01-22 13:06 | DS ---
CC: Dr. Sherwin Storey * DISCHARGE SUMMARY: DATE OF ADMISSION: 01/16/18 DATE OF DISCHARGE: 01/21/18 PRIMARY CARE PROVIDER: Dr. Sherwin Storey. DISCHARGE DIAGNOSIS: Acute hypoxemic respiratory failure with chronic obstructive pulmonary disease exacerbation. SECONDARY DIAGNOSIS: Ongoing tobacco abuse. MEDICATIONS AT DISCHARGE: Include: 1. Albuterol inhaler 2 puffs every 4 hours p.r.n. do not use when using nebulizer at the same time. 2. DuoNeb nebulizer 1 nebulizer every 4 hours p.r.n. wheezing. 3. Ibuprofen on a p.r.n. basis. 4. Dulera 2 puffs inhalation b.i.d. 5. Nicotine patch 21 mg every 24 hours. 6. Prednisone taper 20 mg tablets 3 tablets for 2 days, then 4 tablets 2 days, then 2 tablets for 2 days, then 1 tablet for 2 days, then half a tablet for 2 days, and then stop. LABORATORY DATA DURING THE HOSPITAL STAY: On 01/17/18, sodium of 140, potassium 1.3, chloride 105, carbon dioxide 30, BUN 16, creatinine 0.69. On 09/06, white blood cell count of 12.7, hemoglobin of 13.0, hematocrit of 40, platelets were clumped throughout her hospital stay and platelet count was performed with the addition of citrate and was noted to be 166 on 01/18/18. Microbiology study showed blood cultures that were negative. PHYSICAL EXAM: At the time of discharge, blood pressure 105/62, heart rate of 81 and regular, respiratory rate 17, oxygen saturation 94% on 2 L of oxygen by nasal cannula, temperature 98.1. General: The patient is a very pleasant 57- year-old male who is in no acute distress. Alert, awake, and oriented x3. HEENT: Head is atraumatic and normo-cephalic. Eyes: Pupils are equal, reactive to light and accommodation. Oropharynx is clear. Mucosa moist. Neck : Supple, no JVD. No bruits bilaterally. Cardiovascular: Regular rate and rhythm. No murmur. Respiratory: Distant breath sounds bilaterally with very scant wheezes, otherwise clear. Abdomen: Soft and nontender. Bowel sounds present in all 4 quadrants. Extremities: There is no edema. Pulses are +2 bilaterally. There is no clubbing or cyanosis. Neuro Evaluation: Speech is clear. Cranial nerves II through II are grossly intact. Motor strength is 5/5 bilaterally. DISCHARGE INSTRUCTIONS: On discharge, the patient recommended to follow up with his primary care provider in 4 to 7 days. At discharge, the patient was noted to have continuation of hypoxemia with which he was admitted and he is going to be placed on oxygen at 2 L and have that arranged for home. The patient is also going to have arranged a nebulizer machine with DuoNebs. Please note that this is a short summary of patient's hospitalization. Please refer to further medical records for details. TIME SPENT: Approximately 40 minutes was spent on the patient's discharge. [id number] #: [id number] ELISEO
== END 2018-01-21 18:12 | disposition home or self-care (01) | DRG 140 ==
LOC: ED 13:44 → MEDTELE 19:10 → SSU 01-18 20:04
PROVIDERS: ADMIT Internal Medicine; ATTEND Internal Medicine
DX: J44.1 Chronic obstructive pulmonary disease with (acute) exacerbation (principal); J96.21 Acute and chronic respiratory failure with hypoxia; I45.2 Bifascicular block; Z68.1 Body mass index [BMI] 19.9 or less, adult; F17.210 Nicotine dependence, cigarettes, uncomplicated; R63.4 Abnormal weight loss; I10 Essential (primary) hypertension; G89.29 Other chronic pain; I27.21 Secondary pulmonary arterial hypertension; Z79.51 Long term (current) use of inhaled steroids; Z83.518 Family history of other specified eye disorder; Z85.118 Personal history of other malignant neoplasm of bronchus and lung; Z87.01 Personal history of pneumonia (recurrent); Z90.2 Acquired absence of lung [part of]; Z90.89 Acquired absence of other organs; Z71.6 Tobacco abuse counseling; Z72.89 Other problems related to lifestyle
CPT/HCPCS: 36415; 71045; 80048; 80053; 83605; 83880; 84484; 85025; 85049; 86803; 87040; 93005; 94640; 99285; 99406; A9270-GY; J0456; J1644; J2270; J2920; J2930; J7512

== ENCOUNTER 2018-06-03 04:05 | Emergency (ER) | payer OTHER ==
[2018-06-03] MEDS ORDERED: Albuterol/Ipratropium NEB.SOL* Albuterol 2.5 MG/Ipratropium 0.5 MG 3 ML INH ONE ×2 (04:27→07:21)
[2018-06-03] MEDS ORDERED: methylPREDNISolone 125 MG* 2 ML VIAL IV ONE (04:28)
[2018-06-03] MEDS ORDERED: Aspirin 81 mg CHEW TAB* 81 MG TAB.CHEW PO ONE (04:28)
[2018-06-03 04:58] LABS: INR 0.91 (0.77-1.02)
[2018-06-03 05:09] LABS: EGFR Non-African American 101.9 (>60)
[2018-06-03] MEDS ORDERED: Albuterol 2.5 MG/3 ML NEB.SOL* (0.083%) INH ONE (05:12)
[2018-06-03] MEDS: Albuterol 2.5 MG/3 ML NEB.SOL* (0.083%) INH SCH ×2 (05:14→05:43)
[2018-06-03] MEDS ORDERED: Morphine INJ* 4 MG/ML 1 ML SYRINGE (NEW SYRINGE VERSION) IV ONE (05:30)
[2018-06-03] MEDS ORDERED: Ondansetron INJ* 2 MG/ML VIAL IV ONE (05:31)
[2018-06-03 05:32] LABS: Hematocrit 40 % (42-52); Hemoglobin 13.3 g/dl (14.0-18.0); Mean Corpuscular HGB Conc 33 g/dl (31-36); Mean Corpuscular Hemoglobin 32 pg (27-31); Mean Corpuscular Volume 96 fL (80-94); Red Blood Count 4.21 10^6/ul (4.00-5.40); Red Cell Distribution Width 14 % (10.5-15); White Blood Count 7.1 10^3/ul (3.5-10.8)
[2018-06-03 05:42] LABS: ABS Basophils 0 10^3/ul (0-0.2); ABS Eosinophils 0.1 10^3/ul (0-0.6); ABS Lymphocytes 1.4 10^3/ul (1.0-4.8); ABS Monocytes 0.7 10^3/ul (0-0.8); ABS Neutrophils 4.8 10^3/ul (1.5-7.7); ABS Nucleated RBC 0 10^3/ul; Lymphocyte % 20.2 % (25-47); Nucleated Red Blood Cells % 0; Platelet Count Platelets clumped. 10^3/ul (150-450)
--- NOTE | 2018-06-03 05:46 | ED ---
HPI Chest Pain - HPI Summary HPI Summary: Patient is a 57 y/o M BIBA w/ c/o right sided chest pain onsetting yesterday afternoon. SOB and productive cough are also noted. Fever, N/V, diaphoresis are denied. Patient smokes, uses o2 at home. On triage, pain is rated 8/10, nothing is noted to aggravate/alleviate Sx. Home medications and allergies are reviewed. - History of Current Complaint Chief Complaint: EDChestWallPain Time Seen by Provider: 06/03/18 04:16 Hx Obtained From: Patient Onset/Duration: Started Days Ago - onset yesterday, Still Present Timing: Constant Current Severity: Severe - 8/10 Pain Intensity: 8 Pain Scale Used: 0-10 Numeric - 8/10 Chest Pain Location: Discrete at: - right side Aggravating Factor(s): Nothing Alleviating Factor(s): Nothing Associated Signs and Symptoms: Positive: Chest Pain, Shortness of Breath, Productive Cough, Other: - NEGATIVE: diaphoresis. Negative: Fever, Nausea, Vomiting - Additional Pertinent History Primary Care Physician: ARISTIDES - Allergy/Home Medications Allergies/Adverse Reactions: Allergies Allergy/AdvReac Type Severity Reaction Status Date / Time No Known Allergies Allergy Verified 05/15/16 12:18 PMH/Surg Hx/FS Hx/Imm Hx Endocrine/Hematology History: Denies: Hx Diabetes Cardiovascular History: Denies: Hx Congestive Heart Failure, Hx Hypertension Respiratory History: Reports: Hx Chronic Bronchitis, Hx Chronic Obstructive Pulmonary Disease (COPD), Hx Lung Cancer, Hx Pneumonia, Other Respiratory Problems/Disorders - partial lobectomy Left Denies: Hx Asthma History: Denies: Hx Renal Disease Sensory History: Denies: Hx Contacts or Glasses, Hx Hearing Aid Opthamlomology History: Denies: Hx Contacts or Glasses Neurological History: Reports: Hx Headaches - Cancer History Cancer Type, Location and Year: NSCL CA dx 2008 - Surgical History Surgery Procedure, Year, and Place: Partial Left lobectomy 05/2009, appendectomy 1996 Hx Anesthesia Reactions: No Infectious Disease History: No Infectious Disease History: Denies: Traveled Outside the [place] in Last 30 Days - Family History Known Family History: Positive: Hypertension - Social History Alcohol Use: Rare Hx Substance Use: No Substance Use Type: Reports: Marijuana Hx Tobacco Use: Yes Smoking Status (MU): Heavy Every Day Tobacco Smoker Length of Time of Smoking/Using Tobacco: 40 years Have You Smoked in the Last Year: Yes Review of Systems Negative: Fever, Skin Diaphoresis Positive: Chest Pain - right sided Positive: Shortness Of Breath, Cough - productive Negative: Vomiting, Nausea All Other Systems Reviewed And Are Negative: Yes Physical Exam - Summary Physical Exam Summary: VITAL SIGNS: Reviewed. GENERAL: Patient is a well-developed and nourished male who is lying comfortable in the stretcher. Patient is not in any acute respiratory distress. HEAD AND FACE: No signs of trauma. No ecchymosis, hematomas or skull depressions. No sinus tenderness. EYES: PERRLA, EOMI x 2, No injected conjunctiva, no nystagmus. EARS: Hearing grossly intact. Ear canals and tympanic membranes are within normal limits. MOUTH: Oropharynx within normal limits. NECK: Supple, trachea is midline, no adenopathy, no JVD, no carotid bruit, no c- spine tenderness, neck with full ROM. CHEST: Symmetric, no tenderness at palpation LUNGS: Decreased breath sounds bilaterally, no other abnormal findings noted. CVS: Regular rate and rhythm, S1 and S2 present, no murmurs or gallops appreciated. ABDOMEN: Soft, non-tender. No signs of distention. No rebound no guarding, and no masses palpated. Bowel sounds are normal. EXTREMITIES: FROM in all major joints, no edema, no cyanosis or clubbing. NEURO: Alert and oriented x 3. No acute neurological deficits. Speech is normal and follows commands. SKIN: Dry and warm Triage Information Reviewed: Yes Vital Signs On Initial Exam: Initial Vitals Temp Pulse Resp BP Pulse Ox 98 F 70 24 129/79 93 06/03/18 04:06 06/03/18 04:06 06/03/18 04:06 06/03/18 04:06 06/03/18 04:06 Vital Signs Reviewed: Yes Diagnostics - Vital Signs Vital Signs Temp Pulse Resp BP Pulse Ox 06/03/18 05:14 75 100 06/03/18 05:06 69 18 115/78 100 06/03/18 05:00 77 25 98 06/03/18 04:36 22 121/76 06/03/18 04:28 63 100 06/03/18 04:15 73 17 97 06/03/18 04:11 72 20 129/79 98 06/03/18 04:06 98 F 70 24 129/79 93 - Laboratory Lab Results: Lab Results 06/03/18 06/03/18 06/03/18 Range/Units 04:31 04:31 04:31 WBC 7.1 (3.5-10.8) 10^3/ul RBC 4.21 (4.00-5.40) 10^6/ul Hgb 13.3 L (14.0-18.0) g/dl Hct 40 L (42-52) % MCV 96 H (80-94) fL MCH 32 H (27-31) pg MCHC 33 (31-36) g/dl RDW 14 (10.5-15) % Plt Count Pending MPV Pending Neut % (Auto) Pending Lymph % (Auto) Pending [place] % (Auto) Pending Eos % (Auto) Pending Baso % (Auto) Pending Absolute Neuts (auto) Pending Absolute Lymphs (auto) Pending Absolute Monos (auto) Pending Absolute Eos (auto) Pending Absolute Basos (auto) Pending Absolute Nucleated RBC Pending Nucleated RBC % Pending INR (Anticoag Therapy) 0.91 (0.77-1.02) APTT 35.9 (26.0-36.3) seconds D-Dimer, Quantitative < 200 (Less Than 230) ng/mL Sodium 139 (135-145) mmol/L Potassium 4.1 (3.5-5.0) mmol/L Chloride 103 (101-111) mmol/L Carbon Dioxide 34 H (22-32) mmol/L Anion Gap 2 (2-11) mmol/L BUN 12 (6-24) mg/dL Creatinine 0.78 (0.67-1.17) mg/dL Est GFR ( Amer) 123.3 (>60) Est GFR (Non-Af Amer) 101.9 (>60) BUN/Creatinine Ratio 15.4 (8-20) Glucose 94 (70-100) mg/dL Lactic Acid (0.5-2.0) mmol/L Calcium 9.3 (8.6-10.3) mg/dL Magnesium 1.5 L (1.9-2.7) mg/dL Total Bilirubin 0.40 (0.2-1.0) mg/dL AST 19 (13-39) U/L ALT 11 (7-52) U/L Alkaline Phosphatase 45 (34-104) U/L Total Creatine Kinase 122 (10-223) U/L Troponin I 0.00 (<0.04) ng/mL B-Natriuretic Peptide ( - 100) pg/mL Total Protein 6.0 L (6.4-8.9) g/dL Albumin 3.9 (3.2-5.2) g/dL Globulin 2.1 (2-4) g/dL Albumin/Globulin Ratio 1.9 (1-3) 06/03/18 06/03/18 Range/Units 04:31 04:31 WBC (3.5-10.8) 10^3/ul RBC (4.00-5.40) 10^6/ul Hgb (14.0-18.0) g/dl Hct (42-52) % MCV (80-94) fL MCH (27-31) pg MCHC (31-36) g/dl RDW (10.5-15) % Plt Count MPV Neut % (Auto) Lymph % (Auto) [place] % (Auto) Eos % (Auto) Baso % (Auto) Absolute Neuts (auto) Absolute Lymphs (auto) Absolute Monos (auto) Absolute Eos (auto) Absolute Basos (auto) Absolute Nucleated RBC Nucleated RBC % INR (Anticoag Therapy) (0.77-1.02) APTT (26.0-36.3) seconds D-Dimer, Quantitative (Less Than 230) ng/mL Sodium (135-145) mmol/L Potassium (3.5-5.0) mmol/L Chloride (101-111) mmol/L Carbon Dioxide (22-32) mmol/L Anion Gap (2-11) mmol/L BUN (6-24) mg/dL Creatinine (0.67-1.17) mg/dL Est GFR ( Amer) (>60) Est GFR (Non-Af Amer) (>60) BUN/Creatinine Ratio (8-20) Glucose (70-100) mg/dL Lactic Acid 0.8 (0.5-2.0) mmol/L Calcium (8.6-10.3) mg/dL Magnesium (1.9-2.7) mg/dL Total Bilirubin (0.2-1.0) mg/dL AST (13-39) U/L ALT (7-52) U/L Alkaline Phosphatase (34-104) U/L Total Creatine Kinase (10-223) U/L Troponin I (<0.04) ng/mL B-Natriuretic Peptide 30 ( - 100) pg/mL Total Protein (6.4-8.9) g/dL Albumin (3.2-5.2) g/dL Globulin (2-4) g/dL Albumin/Globulin Ratio (1-3) Result Diagrams: 06/03/18 04:31 06/03/18 04:31 Lab Statement: Any lab studies that have been ordered have been reviewed, and results considered in the medical decision making process. - Radiology CXR Xray Interpretation: No Acute Changes Radiology Interpretation Completed By: ED Physician - hyperinflation, post- operative changes, no acute process, pending official report - EKG 0420 Cardiac Rate: NL - rate of 74 bpm EKG Rhythm: Sinus Rhythm EKG Interpretation: nonspecific intraventricular conduction delay, nonspecific st waves change EKG Comparison: No Significant Change - compared with 01/16/18 EKG Chest Pain Course/Dx - Course Course Of Treatment: Patient is a 57 y/o M BIBA w/ c/o right sided chest pain onsetting yesterday afternoon. SOB and productive cough are also noted. Fever, N /V, diaphoresis are denied. Patient smokes, uses o2 at home. Physical exam showed Decreased breath sounds bilaterally. During ED course, patient was given solu-medrol 125 mg, aspirin 324 mg PO ONCE, albuterol/ipratropium 1 neb ONCE, Albuterol 2.5 mg INH .Q20M SULY, two doses, zofran 8 mg IV ED ONCE, morphine 4 mg IV ED ONCE. CXR revealed Hyperinflation, post operative changes, no acute process. EKG showed sinus rhythm w/ 74 BPM, non specific intraventricular conduction delay, non specific st waves changes, no changes compared to jan 16 2018 EKG. Labs showed BNP 30, trop 0, carbon dioxide 34, d-dimer < 200, hct 40, hgb 13.3. Patient will be signed out to Dr. Gama pending second trop. Dx of chest wall pain. - Diagnoses Provider Diagnoses: Atypical chest pain, COPD exacerbation Discharge - Sign-Out/Discharge Documenting (check all that apply): Sign-Out Patient Signing out patient TO: Sam Gama Receiving patient FROM: Gege Crump - Discharge Plan Condition: Stable Disposition: HOME Prescriptions: Albuterol HFA INHALER* [Ventolin HFA Inhaler*] 1 puff INH Q4H PRN #1 mdi PRN Reason: Wheezing Albuterol/Ipratropium NEB.AMALIA* [Duoneb (Albuterol 2.5 MG/Ipratropium 0.5 MG)] 1 neb INH Q4H PRN #100 neb.amalia PRN Reason: Wheezing Levofloxacin TAB* [Levaquin TAB*] 750 mg PO DAILY #6 tab predniSONE TAB* [Deltasone TAB*] 50 mg PO DAILY #4 tab Patient Education Materials: Chest Pain (ED), COPD (Chronic Obstructive Pulmonary Disease) (ED) Referrals: [facility] [Outside] [facility] [Outside] Additional Instructions: Use breathing treatments every 4 hours until well. Call today to schedule prompt follow-up with the [facility]. You have also been given referral to help you get a primary care doctor.. He may need a stress test performed at some point, especially if he continued to have chest discomfort. Return with fever, difficulty breathing, increased pain, worse, new symptoms or other concerns as discussed. - Billing Disposition and Condition Condition: STABLE Disposition: Home - Attestation Statements Document Initiated by Janette: Yes Documenting Scribe: Koffi Blood Provider For Whom Janette is Documenting (Include Credential): Gege Crump MD Scribe Attestation: Koffi Lu , scribed for Gege Crump MD on 06/07/18 at 0340. Scribe Documentation Reviewed: Yes Provider Attestation: The documentation as recorded by the Koffi alcantar accurately reflects the service I personally performed and the decisions made by me, Gege Crump MD
[2018-06-03] MEDS ORDERED: Levofloxacin TAB* 250 MG PO ONE (07:21)
--- NOTE | 2018-06-03 07:30 | ED ---
Progress - Progress Note Progress Note: This patient was signed out from Dr. Crump on shift change awaiting second troponin and disposition. At 0717 the patient reports left anterior CP that began at 16-18 hours ago. He states the breathing treatments here have improved his breathing but he still has pain with coughing. He denies increased coughing , chest congestion, or fevers. At home uses 3l NC I reviewed the chest Xray report done in december of this year. Dx: Atypical CP and COPD exacerbation Appearance: Well appearing, no pain distress Skin: warm, dry, reflects adequate perfusion Head/face: normal Eyes: EOMI, GEMINI ENT: mucous membranes moist Neck: supple, non-tender Respiratory: Diminished, especially in the upper lobes, and wheezing in the bases Cardiovascular: RRR, pulses symmetrical Abdomen: non-tender, soft Bowel Sounds: present Musculoskeletal: normal, strength/ROM intact Neuro: normal, sensory motor intact, A&Ox3 Showing a history of COPD with sharp right-sided chest pain. No infiltrate on x -ray. Improved aeration with breathing treatments. Toradol improved his discomfort. Troponin 2 is 0. Given follow-up with the [facility]. - EKG/XRAY/CT XRAY: chest - EMPHYSEMA, WITH ENLARGEMENT OF THE PULMONARY ARTERY SUGGESTIVE OF PULMONARY ARTERIAL HYPERTENSION, SIMILAR TO THE PREVIOUS EXAMINATION. Dr. Gama has reviewed this report Course/Dx - Course Course Of Treatment: This patient was signed out from Dr. Crump on shift change awaiting second troponin and disposition. At 0717 the patient reports left anterior CP that began at 16-18 hours ago. He states the breathing treatments here have improved his breathing but he still has pain with coughing. He denies increased coughing, chest congestion, or fevers. At home uses 3l NC. I reviewed the chest Xray report done in december of this year. Dx: Atypical CP and COPD exacerbation - Diagnoses Provider Diagnoses: Atypical chest pain, COPD exacerbation Discharge - Sign-Out/Discharge Documenting (check all that apply): Patient Departure, Receiving Sign-Out Receiving patient FROM: Gege Crump - Discharge Plan Condition: Stable Disposition: HOME Prescriptions: Albuterol HFA INHALER* [Ventolin HFA Inhaler*] 1 puff INH Q4H PRN #1 mdi PRN Reason: Wheezing Albuterol/Ipratropium NEB.AMALIA* [Duoneb (Albuterol 2.5 MG/Ipratropium 0.5 MG)] 1 neb INH Q4H PRN #100 neb.amalia PRN Reason: Wheezing Levofloxacin TAB* [Levaquin TAB*] 750 mg PO DAILY #6 tab predniSONE TAB* [Deltasone TAB*] 50 mg PO DAILY #4 tab Patient Education Materials: Chest Pain (ED), COPD (Chronic Obstructive Pulmonary Disease) (ED) Referrals: [facility] [Outside] [facility] [Outside] Additional Instructions: Use breathing treatments every 4 hours until well. Call today to schedule prompt follow-up with the [facility]. You have also been given referral to help you get a primary care doctor.. He may need a stress test performed at some point, especially if he continued to have chest discomfort. Return with fever, difficulty breathing, increased pain, worse, new symptoms or other concerns as discussed. - Billing Disposition and Condition Condition: STABLE Disposition: Home - Attestation Statements Document Initiated by Janette: Yes Documenting Scribe: Tylor Foy Provider For Whom Janette is Documenting (Include Credential): Sam Gama MD Scribe Attestation: Tylor Lu , scribed for Sam Gama MD on 06/03/18 at 1029. Scribe Documentation Reviewed: Yes Provider Attestation: The documentation as recorded by the Tylor alcantar accurately reflects the service I personally performed and the decisions made by , Sam Gama MD
--- NOTE | 2018-06-03 07:41 | RAD ---
HISTORY: CP COMPARISONS: January 16, 2018 VIEWS: 1: frontal AP view of the chest at 4:52 AM FINDINGS: LINES AND TUBES: None. CARDIOMEDIASTINAL SILHOUETTE: The cardiomediastinal silhouette is normal for portable technique. PLEURA: The costophrenic angles are sharp. No pleural abnormalities are noted. LUNG PARENCHYMA: There is hyperinflation with diffuse emphysematous change. There is postsurgical change to the left upper lung. There is enlargement of the right pulmonary artery. ABDOMEN: The upper abdomen is clear. There is no subphrenic gas. BONES AND SOFT TISSUES: No bone or soft tissue abnormalities are noted. IMPRESSION: EMPHYSEMA, WITH ENLARGEMENT OF THE PULMONARY ARTERY SUGGESTIVE OF PULMONARY ARTERIAL HYPERTENSION, SIMILAR TO THE PREVIOUS EXAMINATION. R0
[2018-06-03] MEDS ORDERED: Ketorolac INJ* 30 MG/ML 1 ML VIAL IV PUSH ONE (08:28)
[2018-06-03 09:20] VITALS: BP 107/67
== END 2018-06-03 09:18 | disposition home or self-care (01) ==
LOC: ED 04:05
DX: R07.89 Other chest pain (principal); Z90.2 Acquired absence of lung [part of]; F17.210 Nicotine dependence, cigarettes, uncomplicated; F12.90 Cannabis use, unspecified, uncomplicated
CPT/HCPCS: 36415; 71045; 80053; 82550; 83605; 83735; 83880; 84484; 85025; 85379; 85610; 85730; 87040; 93005; 96365; 96367; 96374; 99283; A9270-GY; J1885; J2270; J2405; J2930

== ENCOUNTER 2018-10-12 16:37 | Inpatient (IN) | payer OTHER ==
[2018-10-12] MEDS ORDERED: Albuterol/Ipratropium NEB.SOL* Albuterol 2.5 MG/Ipratropium 0.5 MG 3 ML INH ONE (17:10)
--- NOTE | 2018-10-12 17:12 | ED ---
Shortness of Breath - HPI Summary HPI Summary: This patient is a 58 year old M presenting to [facility] by taxi with a chief complaint of chest pain roughly with a productive milky white cough with SOB for the past 3-4 days. He denies fever. His Sao2 is 86% on 3L NC upon presentation. PMHx includes COPD, lung cancer in 2008 with left lower lobectomy. Patient smokes 4 cigarettes per day, decreased from 1.5 PPD. He has run out of albuterol for his nebulizer a couple months ago. He has additionally run out of inhalers. He has not seen a physician since his last hospitalization in May of 2018. Pt did not get a flu shot. Lives with a male roommate. Pt states he has an oxygen tank at home that he brought with him. Also has an oxygen "bubbler". States he gets his supplies from [facility]. Does not know who the prescriber is. States he has missed follow up appointments. Vitals while in room: HR of 107 BPM, sao2 98% 4L NC, BP 105/72 - History of Current Complaint Chief Complaint: EDShortnessOfBreath Time Seen by Provider: 10/12/18 17:02 Hx Obtained From: Patient, Medical Records Onset/Duration: Lasting Days Timing: Constant Current Severity: Severe Dyspnea At: Rest Aggrevating Factors: Nothing Alleviating Factors: Nothing Associated Signs & Symptoms: Cough (Productive), Chest Pain w/Cough Related History: Similar Episode - Lung CA, COPD - Risk Factors Pulmonary Embolism: Malignancy, Smoking - Allergy/Home Medications Allergies/Adverse Reactions: Allergies Allergy/AdvReac Type Severity Reaction Status Date / Time No Known Allergies Allergy Verified 05/15/16 12:18 Home Medications: Home Medications NK [No Home Medications Reported] 10/12/18 [History Confirmed 10/12/18] PMH/Surg Hx/FS Hx/Imm Hx Previously Healthy: No Endocrine/Hematology History: Denies: Hx Diabetes Cardiovascular History: Denies: Hx Congestive Heart Failure, Hx Hypertension Respiratory History: Reports: Hx Chronic Bronchitis, Hx Chronic Obstructive Pulmonary Disease (COPD), Hx Lung Cancer, Hx Pneumonia, Other Respiratory Problems/Disorders - partial lobectomy Left Denies: Hx Asthma History: Denies: Hx Renal Disease Sensory History: Denies: Hx Contacts or Glasses, Hx Hearing Aid Opthamlomology History: Denies: Hx Contacts or Glasses Neurological History: Reports: Hx Headaches - Cancer History Cancer Type, Location and Year: NSCL CA dx 2008 - Surgical History Surgery Procedure, Year, and Place: Partial Left lobectomy 05/2009, appendectomy 1996 Hx Anesthesia Reactions: No Infectious Disease History: No Infectious Disease History: Denies: Traveled Outside the [place] in Last 30 Days - Family History Known Family History: Positive: Hypertension - Social History Occupation: Disabled Lives: Dormitory/Roommates Alcohol Use: Rare Hx Substance Use: No Substance Use Type: Reports: Marijuana Hx Tobacco Use: Yes Smoking Status (MU): Light Every Day Tobacco Smoker Type: Cigarettes Length of Time of Smoking/Using Tobacco: 40 years Have You Smoked in the Last Year: Yes Cessation Counseling: Patient Advised to Stop Review of Systems Negative: Fever ENT: Negative Positive: Chest Pain Positive: Shortness Of Breath, Cough, Other - sputum Gastrointestinal: Negative Positive: no symptoms reported Musculoskeletal: Negative Skin: Negative Neurological: Negative Psychological: Normal All Other Systems Reviewed And Are Negative: Yes Physical Exam - Summary Physical Exam Summary: Appearance: acute and chronically Ill-appearing, no pain distress, COPD habitus , thin Skin: Warm, color reflects adequate perfusion, dry Head: Normal Head/Face inspection, atraumatic Eyes: Conjunctiva clear ENT: Normal inspection Neck: Supple, no nodes, no JVD Respiratory: SOB at rest, inspiratory and expiratory wheezes, accessory muscles of respiration, can speak in short sentences Cardio: RRR, No murmur, pulses normal, brisk capillary refill Abdomen: Soft, nontender Bowel sounds: Present Musculoskeletal: Strength Intact/ROM intact, no calf tenderness, no edema. Psychological: Normal Neuro: Alert, muscle tone normal, no focal deficit Triage Information Reviewed: Yes Vital Signs On Initial Exam: Initial Vitals Temp Pulse Resp BP Pulse Ox 97.4 F 73 20 102/67 86 10/12/18 16:39 10/12/18 16:39 10/12/18 16:39 10/12/18 16:39 10/12/18 16:39 Vital Signs Reviewed: Yes Diagnostics - Vital Signs Vital Signs Temp Pulse Resp BP Pulse Ox 10/12/18 16:39 97.4 F 73 20 102/67 86 - Laboratory Result Diagrams: 10/12/18 18:26 10/12/18 18:26 Lab Statement: Any lab studies that have been ordered have been reviewed, and results considered in the medical decision making process. - Radiology CXR Radiology Interpretation Completed By: Radiologist Summary of Radiographic Findings: EMPHYSEMA. PATCHY OPACIFICATION OF THE RIGHT INFRAHILAR REGION SUGGESTIVE OF CONSOLIDATION. RECOMMEND. FOLLOW-UP UNTIL RESOLUTION TO EXCLUDE UNDERLYING PULMONARY PARENCHYMAL PATHOLOGY. IF THE. CLINICAL PRESENTATION IS NOT CONSISTENT WITH INFECTION, CONSIDER FURTHER EVALUATION WITH. CONTRAST-ENHANCED CT OF THE CHEST. ED Physician has reviewed this report. - EKG 1831 Cardiac Rate: Tachycardia - 101 BPM EKG Rhythm: Sinus Tachycardia ST Segment: Non-Specific Ectopy: None Summary of EKG Findings: 1st degree AV block, nml IVCT, nml QTc, RVH, right axis 145 Re-Evaluation - Re-Evaluation First Eval Re-Evaluation Time: 19:10 Change: Improved Comment: Pt advised he needs admission for COPD exacerbation and pneumonia. Pt agrees. Is hungry. Is wearing the nasal cannula in his mouth. O2 decrease to 2L/ min due to high O2 on ABG and pCO2 50 on ABG. Course/Dx - Course Course Of Treatment: 58 year old M presenting to [facility] by taxi with a chief complaint of chest pain roughly with a productive milky white cough with SOB for the past 3-4 days. He denies fever. His sao2 is 86% on 3L NC that pt brought from home. PMHx includes COPD,non small cell lung cancer with left lower lobectomy. Bloodwork reveals SBC 19.7 Hgb 12.9, Hct 40, sodium 134, chloride 100, BUN/creatinine 20.8, c-reactive 13.26. Blood gas reveals po2 142 pCO2 50 o2 sat 100%, pH 7.37 AB base excess 2.7. Influenza swab is negative. CXR reveals, " EMPHYSEMA. PATCHY OPACIFICATION OF THE RIGHT INFRAHILAR REGION SUGGESTIVE OF CONSOLIDATION. RECOMMEND. FOLLOW-UP UNTIL RESOLUTION TO EXCLUDE UNDERLYING PULMONARY PARENCHYMAL PATHOLOGY. IF THE. CLINICAL PRESENTATION IS NOT CONSISTENT WITH INFECTION, CONSIDER FURTHER EVALUATION WITH. CONTRAST- ENHANCED CT OF THE CHEST." as per radiologist. EKG reveals, sinus tachycardia fo 101 BPM, 1st degree AV block, nml IVCT, nml QTc, RVH, and right axis 145. Case discussed with Dr. Aguilar, hospitalist, who agree to accept at 1905. Patient is agreeable with this plan. Medications, allergies, and nursing notes reviewed. - Diagnoses Differential Diagnosis/HQI/PQRI: Positive: Bronchitis, COPD Exacerbation, Pneumonia, Pulmonary Embolism Provider Diagnoses: COPD with exacerbation, Hypoxia, PNA (pneumonia), Tobacco abuse disorder - Physician Notifications Discussed Care of Patient With: Melania Aguilar - hospitalist Time Discussed With Above Provider: 19:05 Instructed by Provider To: Admit As Inpatient - Critical Care Time Critical Care Time: 30-74 min - 30 minutes Discharge - Sign-Out/Discharge Documenting (check all that apply): Patient Departure - admit - Discharge Plan Condition: Stable Disposition: ADMITTED TO [facility] - Billing Disposition and Condition Condition: STABLE Disposition: Admitted to [facility] - Attestation Statements Document Initiated by Pradeepibe: Yes Documenting Scribe: Lauren Slater Provider For Whom Janette is Documenting (Include Credential): Priya Noble MD Scribe Attestation: Lauren Lu, scribed for Priya Noble MD on 10/13/18 at 0036. Scribe Documentation Reviewed: Yes Provider Attestation: The documentation as recorded by the Lauren alcantar accurately reflects the service I personally performed and the decisions made by Priya smith MD Status of Scribe Document: Viewed
[2018-10-12 17:59] LABS: Influenza A Molecular NEGATIVE (Negative); Influenza B Molecular NEGATIVE (Negative)
[2018-10-12 18:37] LABS: Hematocrit 40 % (42-52); Hemoglobin 12.9 g/dl (14.0-18.0); Mean Corpuscular HGB Conc 32 g/dl (31-36); Mean Corpuscular Hemoglobin 30 pg (27-31); Mean Corpuscular Volume 94 fL (80-94); Red Blood Count 4.26 10^6/ul (4.00-5.40); Red Cell Distribution Width 14 % (10.5-15)
[2018-10-12 18:41] LABS: Activated Partial Thrombo Time 30.8 seconds (26.0-36.3); INR 1.02 (0.77-1.02)
[2018-10-12 18:52] LABS: Albumin/Globulin Ratio 1.2 (1-3); BUN/Creatinine Ratio 20.8 (8-20); C Reactive Protein 13.26 mg/L (<8.01); Calcium 9.4 mg/dL (8.6-10.3); EGFR African American 134.7 (>60); EGFR Non-African American 111.4 (>60); Globulin 3.4 g/dL (2-4); Potassium 4.2 mmol/L (3.5-5.0); Total Bilirubin 0.4 mg/dL (0.2-1.0); Total Protein 7.4 g/dL (6.4-8.9)
[2018-10-12 18:57] LABS: CKMB ng/mL 4.9 ng/mL (0.6-6.3)
[2018-10-12] MEDS ORDERED: ED Azithromycn 500 mg/250 ml 500 MG/250 ML PREMIX.SET IVPB ONE (19:05)
[2018-10-12] MEDS ORDERED: methylPREDNISolone 125 MG* 2 ML VIAL IV ONE (19:06)
[2018-10-12] MEDS ORDERED: cefTRIAXone(*) 1 GM in NS 0.9% 50 ML* 50 ML IVPB ONE (19:07)
[2018-10-12 19:30] LABS: Lymphocytes % 5 %; Monocytes % 5 %; Neutrophil % 90 %
[2018-10-12 19:31] LABS: Platelet Count Platelets clumped. 10^3/ul (150-450); White Blood Count 19.7 10^3/ul (3.5-10.8)
[2018-10-12 19:37] LABS: ABS Neutrophils 17.7 10^3/ul (1.5-7.7)
[2018-10-12] MEDS ORDERED: Albuterol/Ipratropium NEB.SOL* Albuterol 2.5 MG/Ipratropium 0.5 MG 3 ML INH PRN (19:51)
[2018-10-12] MEDS ORDERED: Ondansetron INJ* 2 MG/ML VIAL IV PRN (19:53)
[2018-10-12] MEDS ORDERED: Azithromycin IV(*) 500 MG in NS 0.9% 250 ML* 250 ML IVPB ONE (20:30)
[2018-10-12] MEDS: Heparin VIAL(*) 5000 UNITS/ML VIAL (FIVE THOUSAND) SUBCUT SCH (22:09)
[2018-10-12] MEDS: Acetaminophen TAB* 325 MG PO PRN (22:09)
[2018-10-12] MEDS: Nicotine Patch Removal NOTE PATCH OFF SCH (22:10)
--- NOTE | 2018-10-13 03:28 | HP ---
HISTORY AND PHYSICAL: DATE OF ADMISSION: 10/12/18 PRIMARY CARE PROVIDER: Dr. Gore. HEALTHCARE PROXY: Ayan Graves, the patient's brother. CODE STATUS: Full. CHIEF COMPLAINT: Shortness of breath. SOURCE OF INFORMATION: History is obtained from interview of the patient and review of past medical records. The patient is a good historian. HISTORY OF PRESENT ILLNESS: This is a 58-year-old male with past medical history of COPD, on p.r.n. 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 The patient reports that he ran out of his inhalers about 1 month ago and starting exactly a week ago, he started having worsening cough, initially with no sputum and then progressively with more productive sputum, white and then yellow in color. He also had increasing shortness of breath. He does have p.r.n. oxygen at home, although he said he was down to his last tank and was running out of this. He did decrease his cigarette use by down to 4 cigarettes a day at this time. He denies any active chest pain. No hemoptysis. No GI, , neuro, or ENT complaints. He did have mild chills, but no documented fevers and had slightly reduced appetite, but otherwise unremarkable review of systems. He decided to call a taxi and come to the emergency room because his shortness of breath was concerning at home and he had no medications to treat it. ED COURSE: When the patient arrived, his blood pressure was 105/72. He was in sinus tachycardia at a rate of 104, he was satting at 86% on room air and required 3 L nasal cannula to bring up to 96%, his respiratory rate was 15 on admission. He had chest x-ray done that was concerning for a possible pneumonia at the right infrahilar region. He had labs done that were notable for a white blood cell count of 19, a BMP that was largely unremarkable. An EKG was done that showed sinus rhythm with no signs of ischemia. The patient was thought to have COPD exacerbation and possible pneumonia. He was given 125 mg of methylprednisolone, a DuoNeb, and a dose of ceftriaxone, azithromycin. I saw the patient after he had received these medications and he felt much more comfortable and was able to speak to me in full sentences without increased work of breathing. Secondary to his COPD exacerbation as well as possible pneumonia, he was admitted to the medical service for further assessment and treatment. PAST MEDICAL HISTORY: 1. COPD, on p.r.n. home oxygen 2 L. 2. Distant squamous cell cancer of the lung, status post distant left upper lobectomy. 3. Arthralgias on p.r.n. Tylenol and ibuprofen. 4. Tobacco use with 80-pack year history, currently at 4 cigarettes per day MEDICATIONS: 1. Spiriva 1 puff q.a.m. 2. Albuterol inhaler 1 puff q.4 hours p.r.n. for shortness of breath. 3. Mometasone/formoterol 1 puff b.i.d. for shortness of breath. 4. Ibuprofen 600 mg q.8 hours p.r.n. for pain. ALLERGIES: He has no known drug allergies. FAMILY HISTORY: He has an unknown family history for his father and his mother is noncontributory. SOCIAL HISTORY: He does have 80-pack year of tobacco. He is a never alcohol user and never drug user. He lives with a roommate in [place]. He is disabled on SSI. REVIEW OF SYSTEMS: Constitutional: Positive for chills and mild appetite loss. No fevers. Cardiac: Negative for chest pain. No edema. Respiratory: Positive for cough, shortness of breath. No hemoptysis. GI: No nausea, vomiting. No diarrhea. No constipation. No abdominal pain. : No gross hematuria and no dysuria. Neuro: No focal weakness or sensory loss. HEENT: No visual complaints. No dysphagia. Musculoskeletal: No arthralgias, myalgias. Skin: No rash or lesions. Psychiatry: No confusion, anxiety, or depression. The patient has no sick contacts. PHYSICAL EXAMINATION GENERAL: This is a frail thin man, in no acute distress, sitting in bed, eating a sandwich. He appears older than stage age. VITAL SIGNS: Blood pressure is 105/72, sinus 80s, satting 97% on 3 L nasal cannula, respiratory rate of 12. HEENT: He is normocephalic, atraumatic. His oropharynx is clear. He is edentulous with dry mucous membranes. His sclerae are anicteric. LYMPHATIC: He has no cervical or supraclavicular lymphadenopathy. RESPIRATORY: He has distant lung sounds with right middle lobe notable for rhonchi, crackles and he has diffuse expiratory wheeze throughout. He has no accessory muscle use or no increased work or breathing. CARDIAC: Sinus rhythm with no murmurs, rubs, or gallops. No JVD. ABDOMEN: Belly is soft, nontender, nondistended. Bowel sounds x4. No hepatosplenomegaly. He does have scaphoid abdomen. MUSCULOSKELETAL: He has no clubbing or cyanosis. Full range of motion in all 4 limbs. NEURO: His cranial nerves II through XII are intact. He has no focal neurologic deficits. PSYCHIATRY: He is oriented to person, place, event, and time. He has no appreciable anxiety or depression. He is pleasant. SKIN: He has no rashes or abnormalities. LABORATORY DATA/DIAGNOSTIC STUDIES: The patient had a BMP drawn sodium of 134 , potassium 4.2, chloride 100, CO2 32, BUN 15, creatinine 0.72, glucose of 84. He had a CBC drawn notable for a white blood cell count of 19, H and H of 12 and 40, and platelets that are unable to be determined because they are clumped at this time. Liver function tests were drawn, which are unremarkable. Troponin was drawn, which was 0. A CRP was drawn, which was elevated at 13. ABG was done, which is notable for a pH of 7.37, pCO2 of 50, pO2 of 142, oxygen saturation of 100%. A rapid flu was drawn, which was negative. A chest x-ray was done, which was notable for hyperinflation of lungs and right infrahilar consolidation. EKG was done, which showed sinus rhythm with right axis deviation with ME enlargement in II and slight ME elongation greater than 0.2. The EKGs and the films were reviewed by me personally. ASSESSMENT AND PLAN: This is a 58-year-old male with past medical history of COPD, on home p.r.n. oxygen and history of distant squamous cell carcinoma of the lung, status post left upper lobectomy, and tobacco use, who presented with 7 days of increasing shortness of breath and clinical findings of COPD exacerbation in the setting of possible pneumonia. 1. Chronic obstructive pulmonary disease exacerbation. The patient is status post 125 mg of Solu-Medrol and DuoNebs in the emergency room. -We will continue prednisone 50 mg p.o. q. day, can transition back to IV steroids if the patient needs more aggressive treatment. -DuoNebs q.4 hours [id number] while the patient is awake. -Can also resume home Spiriva and mometasone/formoterol. -Wean oxygen as tolerated. -The patient is on p.r.n. 2 L nasal cannula as needed. 2. Pneumonia. The patient has white blood cell count of 19 and a right perihilar infiltrate consistent with pneumonia, community acquired. -Continue ceftriaxone and azithromycin. -Send strep, legionella, and pneumonia antigen and urine. -Does have considerable consolidation in right infrahilar region. Consider followup chest x- ray or even CT to rule out postendobronchial mass, depending on clinical status 3. Tobacco use: The patient is offered nicotine replacement. 4. FEN: The patient is on unrestricted diet. 5. Code status: The patient is full code and this was discussed with his healthcare proxy, Ayan Graves. 6. DVT prophylaxis: The patient will be on subcu heparin q.8 hours. 7. Disposition: He is stable for medical floor. TIME SPENT: 45 minutes were spent in this H and P with over half of that spent at the bedside of the patient giving direct care. His plan of care was discussed with him and his family, we will arrange for PCP follow up with the help of social work consult which is placed [id number]/[facility] #: [id number] ELISEO
[2018-10-13] MEDS: Heparin VIAL(*) 5000 UNITS/ML VIAL (FIVE THOUSAND) SUBCUT SCH ×3 (05:36→20:40)
--- NOTE | 2018-10-13 07:32 | HP ---
HISTORY AND PHYSICAL: PLEASE SEE OTHER H/P THIS ONE WAS ENTERED IN ERROR MTDD
[2018-10-13 07:59] LABS: BUN/Creatinine Ratio 27.7 (8-20); Calcium 9.6 mg/dL (8.6-10.3); EGFR African American 151.6 (>60); EGFR Non-African American 125.3 (>60); Potassium 4.9 mmol/L (3.5-5.0)
[2018-10-13] MEDS: Tiotropium CAP.INH* CAP.INH/18 MCG (USE ORDER SET !) INH SCH (08:11)
[2018-10-13] MEDS: Mometasone/Formoter 200/5 MDI INH SCH ×2 (08:11→19:52)
[2018-10-13 08:26] LABS: Hematocrit 40 % (42-52); Hemoglobin 12.9 g/dl (14.0-18.0); Mean Corpuscular HGB Conc 33 g/dl (31-36); Mean Corpuscular Hemoglobin 31 pg (27-31); Mean Corpuscular Volume 94 fL (80-94); Red Blood Count 4.21 10^6/ul (4.00-5.40); Red Cell Distribution Width 14 % (10.5-15)
[2018-10-13] MEDS ORDERED: Spiriva Inhaler DEVICE* 1 EACH DEVICE INH ONE (09:00)
[2018-10-13 09:42] LABS: Platelet Count Platelets clumped. 10^3/ul (150-450)
[2018-10-13 09:52] LABS: Lymphocytes % 2 %; Neutrophil % 98 %
[2018-10-13 09:53] LABS: ABS Neutrophils 8.82 10^3/ul (1.5-7.7)
[2018-10-13] MEDS: predniSONE TAB* 50 MG PO SCH (09:53)
[2018-10-13] MEDS: Nicotine PATCH 21 MG/24 HR* PATCH TRANSDERM SCH (09:57)
[2018-10-13] MEDS ORDERED: Albuterol 2.5 MG/3 ML NEB.SOL* (0.083%) INH PRN (12:48)
--- NOTE | 2018-10-13 12:51 | PN ---
Subjective Date of Service: 10/13/18 Interval History: Admitted last evening for COPD exacerbation and pneumonia. States he is still very short of breath especially with exertion. Still smoking but cut down to a few cigarettes a day. COntinues to have productive cough. States he has lost a significant amount of weight over the past several years. Good PO. No N/V/ D. Objective Active Medications: Acetaminophen (Tylenol Tab*) 650 mg PO Q6H PRN PRN Reason: FEVER/HEADACHE Last Admin: 10/12/18 22:09 Dose: 650 mg Albuterol (Ventolin 2.5 Mg/3 Ml Neb.Josefa*) 2.5 mg INH Q2H PRN PRN Reason: SOB/WHEEZING Albuterol/Ipratropium (Duoneb (Albuterol 2.5 Mg/Ipratropium 0.5 Mg)) 1 neb INH Q4H PRN PRN Reason: WHEEZING Heparin Sodium (Porcine) (Heparin Vial(*)) 5,000 units SUBCUT Q8HR [facility] Last Admin: 10/13/18 05:36 Dose: 5,000 units Ceftriaxone Sodium 1 gm/ (Sodium Chloride) 50 mls @ 200 mls/hr IVPB Q24H [facility] Azithromycin 250 mg/ Sodium (Chloride) 250 mls @ 250 mls/hr IVPB Q24H [facility] Mometasone Furoate/Formoterol Fumar (Dulera 200/5 Mdi*) 2 puff INH BID [facility] Last Admin: 10/13/18 08:11 Dose: 2 puff Nicotine (Nicotine Patch 21 Mg/24 Hr*) 1 patch TRANSDERM DAILY [facility] Last Admin: 10/13/18 09:57 Dose: Not Given Ondansetron HCl (Zofran Inj*) 4 mg IV Q8H PRN PRN Reason: NAUSEA Pharmacy Profile Note (Nicotine Patch Removal Note*) 1 note PATCH OFF 2100 [facility] Last Admin: 10/12/18 22:10 Dose: Not Given Prednisone (Deltasone Tab*) 50 mg PO DAILY [facility] Last Admin: 10/13/18 09:53 Dose: 50 mg Tiotropium [employer] (Spiriva Cap.Inh*) 1 cap INH DAILY [facility] Last Admin: 10/13/18 08:11 Dose: 1 cap Vital Signs - 8 hr 10/13/18 10/13/18 10/13/18 07:19 08:00 08:16 Temperature 97.2 F Pulse Rate 77 93 Respiratory 20 18 16 Rate Blood Pressure 103/63 (mmHg) O2 Sat by Pulse 100 92 Oximetry Oxygen Devices in Use Now: Nasal Cannula Appearance: NAD, intermittent exertional dyspnea. Cachectic appearing Ears/Nose/Mouth/Throat: Mucous Membranes Moist Neck: Trachea Midline Respiratory: - - Diminished breath sounds, poor aeration, rhonchi over left lung. no expiratory wheeze Cardiovascular: NL Sounds; No Murmurs; No JVD, RRR Abdominal: NL Sounds; No Tenderness; No Distention Extremities: No Edema Neurological: Alert and Oriented x 3, NL Muscle Strength and Tone Result Diagrams: 10/13/18 07:23 10/13/18 07:23 Microbiology and Other Data: Microbiology 10/13/18 10:20 Legionella Urinary Antigen - Final Urine Negative Legionella Antigen Streptococcus pneumoniae Ag Screen - Final Negative S. pneumo Antigen 10/12/18 17:07 Influenza Types A,B Antigen - Final Nasopharyngeal Specimen received for Influenza A/B Molecular testing Assess/Plan/Problems-Billing Assessment: This is a 58 yr old male with PMHx of COPD on 2L prn, SCLC s/p resection who is still smoking presents with SOB found to have a PNA with COPD exacerbation - Patient Problems (1) COPD with exacerbation Current Visit: No Status: Acute Code(s): J44.1 - CHRONIC OBSTRUCTIVE PULMONARY DISEASE W (ACUTE) EXACERBATION SNOMED Code(s): 457058416 Comment: A. Slow improvement. Has not seen a insole coverer Plan Continue Dulera, Spiriva, Albuterol and Duoneb. Continue Prednisone burst Would benefit from getting plugged back in to Pulmonology (2) Pneumonia Current Visit: No Status: Acute Code(s): J18.9 - PNEUMONIA, UNSPECIFIED ORGANISM SNOMED Code(s): 826473820 Comment: A. CXR shows patchy right parahilar infiltrate With his history of SCLC in the left in the past will check a CTA to further identify this better. Continue Azithromycin and Ceftriaxone Follow up blood and sputum cultures (3) Tobacco abuse counseling Current Visit: No Status: Acute Code(s): Z71.6 - TOBACCO ABUSE COUNSELING SNOMED Code(s): 723921074 Comment: cont nicotine replacement (4) DVT prophylaxis Current Visit: No Status: Acute Code(s): ZPS7944 - SNOMED Code(s): 140965884 Comment: HSQ (5) Full code status Current Visit: No Status: Acute Code(s): Z78.9 - OTHER SPECIFIED HEALTH STATUS SNOMED Code(s): 158732083 (6) Abnormal morphology of platelets Current Visit: Yes Status: Acute Code(s): R79.89 - OTHER SPECIFIED ABNORMAL FINDINGS OF BLOOD CHEMISTRY SNOMED Code(s): 161832875 Comment: A. Platlet clumping with large morphology. Unclear the significance but had same issue back in 01/04. Plan Monitor Repeat CBC in AM with citrated tube/top
[2018-10-13] MEDS ORDERED: Iohexol 350* (CONTRAST) 500 ML MDV IV ONE (12:58)
[2018-10-13] MEDS ORDERED: Azithromycin IV(*) 250 MG in NS 0.9% 250 ML* 250 ML IVPB SCH (20:00)
[2018-10-13] MEDS ORDERED: cefTRIAXone(*) 1 GM in NS 0.9% 50 ML* 50 ML IVPB SCH (20:00)
[2018-10-13] MEDS: Nicotine Patch Removal NOTE PATCH OFF SCH (20:36)
[2018-10-13] MEDS: Acetaminophen TAB* 325 MG PO PRN (20:39)
[2018-10-14] MEDS: Heparin VIAL(*) 5000 UNITS/ML VIAL (FIVE THOUSAND) SUBCUT SCH ×2 (05:24→13:49)
[2018-10-14] MEDS: Mometasone/Formoter 200/5 MDI INH SCH (07:13)
[2018-10-14] MEDS: Tiotropium CAP.INH* CAP.INH/18 MCG (USE ORDER SET !) INH SCH (07:14)
[2018-10-14 08:37] LABS: ABS Basophils 0 10^3/ul (0-0.2); ABS Eosinophils 0 10^3/ul (0-0.6); ABS Lymphocytes 1.6 10^3/ul (1.0-4.8); ABS Neutrophils 9.2 10^3/ul (1.5-7.7); ABS Nucleated RBC 0 10^3/ul; Eosinophil % 0.2 %; Hematocrit 38 % (42-52); Hemoglobin 12.3 g/dl (14.0-18.0); Lymphocyte % 13.7 %; Mean Corpuscular HGB Conc 32 g/dl (31-36); Mean Corpuscular Hemoglobin 30 pg (27-31); Mean Corpuscular Volume 93 fL (80-94); Nucleated Red Blood Cells % 0.3; Platelet Count Platelets clumped. 10^3/ul (150-450); Red Blood Count 4.08 10^6/ul (4.00-5.40); Red Cell Distribution Width 14 % (10.5-15); White Blood Count 11.8 10^3/ul (3.5-10.8)
--- NOTE | 2018-10-14 08:40 | PN ---
Subjective Date of Service: 10/14/18 Interval History: Feeling a little better. No complaints. Still coughing but it is dry. Has walked to the bathroom and gets short of breath. No chest pain. Objective Active Medications: Acetaminophen (Tylenol Tab*) 650 mg PO Q6H PRN PRN Reason: FEVER/HEADACHE Last Admin: 10/13/18 20:39 Dose: 650 mg Albuterol (Ventolin 2.5 Mg/3 Ml Neb.Josefa*) 2.5 mg INH Q2H PRN PRN Reason: SOB/WHEEZING Albuterol/Ipratropium (Duoneb (Albuterol 2.5 Mg/Ipratropium 0.5 Mg)) 1 neb INH Q4H PRN PRN Reason: WHEEZING Heparin Sodium (Porcine) (Heparin Vial(*)) 5,000 units SUBCUT Q8HR [facility] Last Admin: 10/14/18 05:24 Dose: 5,000 units Ceftriaxone Sodium 1 gm/ (Sodium Chloride) 50 mls @ 200 mls/hr IVPB Q24H [facility] Last Admin: 10/13/18 20:39 Dose: 200 mls/hr Azithromycin 250 mg/ Sodium (Chloride) 250 mls @ 250 mls/hr IVPB Q24H [facility] Last Admin: 10/13/18 21:13 Dose: 250 mls/hr Mometasone Furoate/Formoterol Fumar (Dulera 200/5 Mdi*) 2 puff INH BID [facility] Last Admin: 10/14/18 07:13 Dose: 2 puff Nicotine (Nicotine Patch 21 Mg/24 Hr*) 1 patch TRANSDERM DAILY [facility] Last Admin: 10/13/18 09:57 Dose: Not Given Ondansetron HCl (Zofran Inj*) 4 mg IV Q8H PRN PRN Reason: NAUSEA Pharmacy Profile Note (Nicotine Patch Removal Note*) 1 note PATCH OFF 2100 [facility] Last Admin: 10/13/18 20:36 Dose: Not Given Prednisone (Deltasone Tab*) 50 mg PO DAILY [facility] Last Admin: 10/13/18 09:53 Dose: 50 mg Tiotropium [place] (Spiriva Cap.Inh*) 1 cap INH DAILY [facility] Last Admin: 10/14/18 07:14 Dose: 1 cap Vital Signs - 8 hr 10/14/18 02:45 Temperature 98.3 F Pulse Rate 93 Respiratory 19 Rate Blood Pressure 99/62 (mmHg) O2 Sat by Pulse 97 Oximetry Oxygen Devices in Use Now: Nasal Cannula Appearance: alert, no distress, speaking in full sentences, thin Eyes: No Scleral Icterus Ears/Nose/Mouth/Throat: NL Teeth, Lips, Gums Neck: NL Appearance and Movements; NL JVP Respiratory: Symmetrical Chest Expansion and Respiratory Effort, - - few wheezes , good air movement Cardiovascular: NL Sounds; No Murmurs; No JVD, RRR Abdominal: NL Sounds; No Tenderness; No Distention Lymphatic: No Cervical Adenopathy Extremities: No Edema Skin: No Rash or Ulcers Neurological: Alert and Oriented x 3 Result Diagrams: 10/13/18 07:23 10/13/18 07:23 Microbiology and Other Data: Microbiology 10/13/18 10:20 Legionella Urinary Antigen - Final Urine Negative Legionella Antigen Streptococcus pneumoniae Ag Screen - Final Negative S. pneumo Antigen 10/12/18 17:07 Influenza Types A,B Antigen - Final Nasopharyngeal Specimen received for Influenza A/B Molecular testing Assess/Plan/Problems-Billing Assessment: This is a 58 yr old male with PMHx of COPD on 2L prn, SCLC s/p resection who is still smoking presents with SOB found to have a PNA with COPD exacerbation - Patient Problems (1) COPD with exacerbation Current Visit: No Status: Acute Code(s): J44.1 - CHRONIC OBSTRUCTIVE PULMONARY DISEASE W (ACUTE) EXACERBATION SNOMED Code(s): 521931326 Comment: Improving continue duonebs and prednisone Agrees to return to see a masonry inspector on discharge (2) Pneumonia Current Visit: No Status: Acute Code(s): J18.9 - PNEUMONIA, UNSPECIFIED ORGANISM SNOMED Code(s): 250622351 Comment: CXR shows patchy right parahilar infiltrate, confirmed with CTA Continue Azithromycin and Ceftriaxone Blood cultures are negative, urine antigens are negative (3) Abnormal morphology of platelets Current Visit: Yes Status: Acute Code(s): R79.89 - OTHER SPECIFIED ABNORMAL FINDINGS OF BLOOD CHEMISTRY SNOMED Code(s): 592688285 Comment: platelet clumping again today (4) Tobacco abuse counseling Current Visit: No Status: Acute Code(s): Z71.6 - TOBACCO ABUSE COUNSELING SNOMED Code(s): 521788136 Comment: says he is "almost" ready to quit, but not yet cont nicotine replacement
[2018-10-14] MEDS: Nicotine PATCH 21 MG/24 HR* PATCH TRANSDERM SCH (09:10)
[2018-10-14] MEDS: predniSONE TAB* 50 MG PO SCH (09:52)
[2018-10-14 17:00] VITALS: BP 98/56
== END 2018-10-14 18:30 | disposition hospice, home (50) | DRG 140 ==
LOC: ED 16:37 → MED 19:46
PROVIDERS: ADMIT Internal Medicine; ATTEND Internal Medicine
DX: J44.1 Chronic obstructive pulmonary disease with (acute) exacerbation (principal); J18.9 Pneumonia, unspecified organism; J44.0 Chronic obstructive pulmonary disease with (acute) lower respiratory infection; F17.210 Nicotine dependence, cigarettes, uncomplicated; I44.0 Atrioventricular block, first degree; R00.0 Tachycardia, unspecified; R79.89 Other specified abnormal findings of blood chemistry; R09.02 Hypoxemia; Z71.6 Tobacco abuse counseling; Z85.118 Personal history of other malignant neoplasm of bronchus and lung; Z90.2 Acquired absence of lung [part of]; Z90.89 Acquired absence of other organs; Z82.49 Family history of ischemic heart disease and other diseases of the circulatory system; Z99.81 Dependence on supplemental oxygen
CPT/HCPCS: 36415; 71045; 71275; 80048; 80053; 82550; 82553; 82803; 83605; 83880; 84484; 85025; 85610; 85730; 86140; 87040; 87899; 90686; 93005; 94640; 99284; A9270-GY; G8978-GP-CI; G8979-GP-CI; G8980-GP-CI; J0456; J0696; J1644; J2930; J7512; Q9967

== ENCOUNTER 2019-10-15 20:25 | Inpatient (IN) | payer OTHER ==
[2019-10-15] MEDS ORDERED: Albuterol/Ipratropium NEB.SOL* Albuterol 2.5 MG/Ipratropium 0.5 MG 3 ML INH ONE (21:06)
--- NOTE | 2019-10-15 21:12 | ED ---
Shortness of Breath - HPI Summary HPI Summary: Patient is a 59 y/o M presenting to [facility] with complaints of SOB for the past three weeks with a recent exacerbation. He notes that he has become increasingly more SOB with a lesser amount of activity. SOB is present while lying in stretcher. Patient also notes some chest pain and productive cough. No fever noted. 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 He notes that he was on o2 at home but he ran out of o2 around three months ago. Patient states that he just has not ordered more at this time. He has albuterol inhalers and nebulizer at home. PMHx of PNA, COPD noted. PSHx of lung tumor removal 10-15 years ago and appendectomy 20-30 years ago. He states that he is a current smoker but denies marijuana, alcohol, and other substance usage. Home medications and allergies are reviewed. - History of Current Complaint Chief Complaint: EDShortnessOfBreath Time Seen by Provider: 10/15/19 20:55 Hx Obtained From: Patient Onset/Duration: Lasting Weeks, Still Present, Worse Since Timing: Constant Dyspnea At: Rest Associated Signs & Symptoms: Cough (Productive) - Allergy/Home Medications Allergies/Adverse Reactions: Allergies Allergy/AdvReac Type Severity Reaction Status Date / Time No Known Allergies Allergy Verified 11/22/18 12:05 Home Medications: Home Medications Albuterol HFA INHALER* [Ventolin HFA Inhaler*] 1 puff INH Q4H PRN #1 mdi [Rx Confirmed 10/15/19] Albuterol 2.5MG/3ML (0.083%)* [Ventolin 2.5 MG/3 ML NEB.AMALIA*] 2.5 mg INH Q4H PRN 11/22/18 [History Confirmed 10/15/19] Ibuprofen TAB* [Advil TAB*] 200 mg PO Q6H PRN 11/22/18 [History Confirmed ] Mometasone/Formoter 200/5 MDI* [Dulera 200/5 MDI*] 2 puff INH BID 11/22/18 [ History Confirmed 10/15/19] Tiotropium [place] [Spiriva Respimat] 4 gm IH DAILY 10/15/19 [History Confirmed 10/15/19] PMH/Surg Hx/FS Hx/Imm Hx Endocrine/Hematology History: Denies: Hx Diabetes Cardiovascular History: Denies: Hx Congestive Heart Failure, Hx Hypertension Respiratory History: Reports: Hx Chronic Bronchitis, Hx Chronic Obstructive Pulmonary Disease (COPD) - on PRN home O2 2L, Hx Lung Cancer, Hx Pneumonia, Other Respiratory Problems/Disorders - partial lobectomy Left Denies: Hx Asthma History: Denies: Hx Renal Disease Sensory History: Denies: Hx Cataracts, Hx Contacts or Glasses, Hx Hearing Aid Opthamlomology History: Denies: Hx Cataracts, Hx Contacts or Glasses Neurological History: Reports: Hx Headaches - Cancer History Cancer Type, Location and Year: NSCL CA dx 2008 - Surgical History Surgery Procedure, Year, and Place: Partial Left lobectomy 05/2009, appendectomy 1996 Hx Anesthesia Reactions: No Infectious Disease History: No Infectious Disease History: Denies: Traveled Outside the [place] in Last 30 Days - Family History Known Family History: Positive: Hypertension - Social History Alcohol Use: None Hx Substance Use: No Substance Use Type: Reports: None Hx Tobacco Use: Yes Smoking Status (MU): Heavy Every Day Tobacco Smoker Type: Cigarettes Length of Time of Smoking/Using Tobacco: 40 years Have You Smoked in the Last Year: Yes - Additional Comments History Additional Comments: PMHx of COPD, PNA PSHx of appendectomy, lung tumor removal SHx of cigarette usage Review of Systems - ROS Summary Review of Systems Summary: Home Medications Medication Instructions Recorded Confirmed Type Albuterol HFA INHALER* [Ventolin 1 puff INH Q4H PRN #1 mdi 10/14/18 10/15/19 Rx HFA Inhaler*] Albuterol 2.5MG/3ML (0.083%)* 2.5 mg INH Q4H PRN 11/22/18 10/15/19 History [Ventolin 2.5 MG/3 ML NEB.AMALIA*] Ibuprofen TAB* [Advil TAB*] 200 mg PO Q6H PRN 11/22/18 10/15/19 History Mometasone/Formoter 200/5 MDI* 2 puff INH BID 11/22/18 10/15/19 History [Dulera 200/5 MDI*] Tiotropium [place] [Spiriva 4 gm IH DAILY 10/15/19 10/15/19 History Respimat] Negative: Fever Positive: Chest Pain Positive: Shortness Of Breath, Cough All Other Systems Reviewed And Are Negative: Yes Physical Exam - Summary Physical Exam Summary: General: Well-developed, cachectic appearing male, older than stated age HEENT: Normocephalic, Atraumatic. Eyes: Conjuctiva normal, PERRL. Oropharynx: Clear, mucous membranes moist, (-) exudates. Neck: Soft, FROM, (-) lymphadenopathy, (-) thyromegaly, (-) JVD. Cardiovascular: Normal sinus rhythm, (-) murmur. Lungs: Moderate respiratory distress at rest. Decreased breath sounds bilaterally, tight wheezing throughout, fair air exchange. Abdomen: Soft, non-tender, non-distended, (-) organomegaly, normal bowel sounds. Back: (-) CVA tenderness Extremities: No edema. Skin: Warm, dry, (-) rash. Neuro: Alert and oriented x3, moves all extremities equally. No ataxia. No gait disturbance. No sensory deficit. Normal strength, normal sensation. Psychiatric: Mood normal, affect normal. Triage Information Reviewed: Yes Vital Signs On Initial Exam: Initial Vitals Temp Pulse Resp BP Pulse Ox 96.9 F 131 40 122/94 85 10/15/19 20:27 10/15/19 20:27 10/15/19 20:27 10/15/19 20:27 10/15/19 20:27 Vital Signs Reviewed: Yes Procedures - Sedation Patient Received Moderate/Deep Sedation with Procedure: No Diagnostics - Vital Signs Vital Signs Temp Pulse Resp BP Pulse Ox 10/15/19 20:27 96.9 F 131 40 122/94 85 - Laboratory Result Diagrams: 10/16/19 00:05 10/15/19 21:16 Lab Statement: Any lab studies that have been ordered have been reviewed, and results considered in the medical decision making process. - Radiology CXR Radiology Interpretation Completed By: ED Physician Summary of Radiographic Findings: CXR showed increased cephalization consistent with CHF, persistent right middle lobe opacity, pending official report. - EKG 2033 Cardiac Rate: Tachycardia - rate of 110 BPM EKG Rhythm: Sinus Tachycardia Summary of EKG Findings: EKG showed sinus tachycardia with rate of 110 BPM, new T-wave depression in V3 and V4. No STEMI. ED physician has reviewed and interpreted this EKG. Course/Dx - Course Course Of Treatment: 59-year-old male presents with shortness of breath. Patient has known COPD. He states for the last 3 weeks he is becoming more and more short of breath. Is able to walk less distances than previously. He does admit he ran out of his oxygen about 3 months ago. Has also run out of most of his inhalers. Has just albuterol left for nebulizer and has albuterol inhaler left. He did have some chest pain tonight. That resolved after he took ibuprofen at home. No significant fevers. Upon arrival patient was 85% on room air. Appears in mild respiratory distress at rest. Cachectic appearing male. Decreased breath sounds bilaterally. Workup demonstrates normal white count. Chest x-ray is normal appearing. Patient diagnosed with COPD exacerbation and hypoxia. Received Solu-Medrol, Lasix, DuoNeb. Referred to hospitalist for admission. - Diagnoses Provider Diagnoses: Hypoxia, CHF (congestive heart failure), Elevated troponin, SOB (shortness of breath) - Physician Notifications Discussed Care of Patient With: Kayy Sandhu Time Discussed With Above Provider: 22:28 Instructed by Provider To: Other - Patient's case was discussed with Dr. Sandhu , Dr. Sandhu accepts for admission. Discharge ED - Sign-Out/Discharge Documenting (check all that apply): Patient Departure - admit - Discharge Plan Condition: Fair Disposition: ADMITTED TO [facility] - Billing Disposition and Condition Condition: FAIR Disposition: Admitted to [facility] - Attestation Statements Document Initiated by Janette: Yes Documenting Scribe: FOUZIA LUU Provider For Whom Pradeepibe is Documenting (Include Credential): QUIQUE HILL MD Scribe Attestation: IFOUZIA, scribed for QUIQUE HILL MD on 10/16/19 at 0342. Scribe Documentation Reviewed: Yes Provider Attestation: The documentation as recorded by the FOUZIA alcantar accurately reflects the service I personally performed and the decisions made by me, QUIQUE HILL MD Status of Scribe Document: Viewed
[2019-10-15] MEDS ORDERED: methylPREDNISolone 125 MG* 2 ML VIAL IV ONE (21:15)
[2019-10-15 21:22] LABS: Hematocrit 38 % (42-52); Hemoglobin 12.7 g/dL (14.0-18.0); Mean Corpuscular HGB Conc 34 g/dL (31-36); Mean Corpuscular Hemoglobin 32 pg (27-31); Mean Corpuscular Volume 95 fL (80-94); Red Blood Count 3.94 10^6 /uL (4.18-5.48); Red Cell Distribution Width 15 % (10-15)
[2019-10-15 21:40] LABS: ALT 65 U/L (7-52); AST 90 U/L (13-39); Albumin 3.4 g/dL (3.2-5.2); Albumin/Globulin Ratio 1.4 (1-3); Alkaline Phosphatase 95 U/L (34-104); Anion Gap 7 mmol/L (2-11); BUN/Creatinine Ratio 32.9 (8-20); Blood Urea Nitrogen 26 mg/dL (6-24); CO2 Carbon Dioxide 29 mmol/L (22-32); Calcium 8.1 mg/dL (8.6-10.3); Chloride 103 mmol/L (101-111); EGFR African American 120.7 (>60); EGFR Non-African American 99.7 (>60); Globulin 2.5 g/dL (2-4); Glucose 108 mg/dL (70-100); Potassium 4.3 mmol/L (3.5-5.0); Sodium 139 mmol/L (135-145); Total Protein 5.9 g/dL (6.4-8.9)
[2019-10-15 21:42] LABS: Troponin I 0.03 ng/mL (<0.03)
[2019-10-15] MEDS ORDERED: Furosemide IV* 10 MG/ML VIAL (40 MG) IV SLOW PU ONE (21:59)
[2019-10-15 22:23] LABS: HIV 4th Generation Nonreactive (Nonreactive)
[2019-10-15 22:27] LABS: Platelet Count Platelets clumped. 10^3/uL (150-450)
[2019-10-15 22:30] LABS: ABS Lymphocytes 0.8 10^3/ul (1.0-4.8); ABS Monocytes 0.8 10^3/ul (0-0.8); ABS Neutrophils 5.4 10^3/ul (1.5-7.7); Eosinophil % 0.1 %; Lymphocyte % 11.8 %; Nucleated Red Blood Cells % 0.1
[2019-10-15] MEDS ORDERED: Albuterol 2.5 MG/3 ML NEB.SOL* (0.083%) INH PRN (23:06)
[2019-10-15] MEDS ORDERED: Iohexol 350* (CONTRAST) 500 ML MDV IV ONE (23:21)
[2019-10-15 23:51] LABS: Influenza A Molecular Negative (Negative); Influenza B Molecular Negative (Negative)
[2019-10-16 00:05] LABS: Urine Appearance Clear; Urine Bilirubin Negative (Negative); Urine Blood 1+ (Negative); Urine Color Colorless; Urine Glucose Negative (Negative); Urine Ketones Negative (Negative); Urine Nitrite Negative (Negative); Urine Protein Negative (Negative); Urine Specific Gravity 1.008 (1.010-1.030); Urine Urobilinogen Negative (Negative)
[2019-10-16 00:07] LABS: Urine Bacteria Absent (Absent); Urine Red Blood Cell Trace(0-2/hpf) (Absent); Urine White Blood Cell Trace(0-5/hpf) (Absent)
[2019-10-16] MEDS: Albuterol/Ipratropium NEB.SOL* Albuterol 2.5 MG/Ipratropium 0.5 MG 3 ML INH SCH ×7 (00:30→23:34)
[2019-10-16 00:40] LABS: Activated Partial Thrombo Time 39.4 seconds (26.0-38.0); INR 1.16 (0.82-1.09)
--- NOTE | 2019-10-16 00:47 | HP ---
HISTORY AND PHYSICAL: DATE OF ADMISSION: 10/15/19 PRIMARY CARE PROVIDER: None. ATTENDING PHYSICIAN WHILE IN THE HOSPITAL: Kayy Clark MD * (report dictated by Nikhil Finnegan NP) CHIEF COMPLAINT: Shortness of breath. HISTORY OF PRESENT ILLNESS: Mr. Graves is a 59-year-old male patient. 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 He has a history of arthralgias and tobacco abuse. He comes in today. He states he has been having some significant shortness of breath over the last 2 to 3 weeks that has been getting progressively worse. It is not positional in nature. He denies orthopnea. He states it is much worse with minimal exertion. He noted today when he walked 25 feet, he was really short of breath. He does give a history that he has been out of his inhalers now for the last several weeks, particularly his Dulera and Spiriva. He does have an oxygen concentrator at home, which he wears 2 L at all times. He states he does not have any oxygen tanks though. He states he has had a cough and when he does cough, he hurts. He does have some chest discomfort when he coughs or takes a deep breath. He states that he was concerned because the symptoms were not getting any better. He could barely breathe after minimal exertion today. He denies chest pain currently and denies short of breath at rest. He did admit to having some dry heaves approximately 3 days ago, but no abdominal pain. No fevers or chills have been reported. No weight changes and no swelling or edema in the lower extremities reported. He was concerned because his breathing was not getting better. He came in to the ER today and was evaluated. There was concern for possible CHF versus COPD and we were asked to evaluate for admission. PAST MEDICAL HISTORY: Significant for: 1. COPD. 2. Squamous cell lung cancer. 3. Arthralgias. 4. Tobacco abuse. PAST SURGICAL HISTORY: He has had a left upper lobe lobectomy. MEDICATIONS: Home meds include: 1. Spiriva 1 capsule inhale daily. 2. Dulera 2 puffs inhale b.i.d. 3. Ibuprofen 200 mg every 6 hours as needed. 4. Albuterol 2.5 mg inhale every 4 hours as needed. 5. Ventolin 1 puff inhale every 4 hours as needed. ALLERGIES TO MEDICATIONS: Include no known drug allergies. FAMILY HISTORY: Unknown. SOCIAL HISTORY: He smokes about half a pack a day. He has been smoking for 45 years. He denies alcohol consumption. He states that he does not have a surrogate decision maker at this point. He would like to think about it. REVIEW OF SYSTEMS: There is no documented fever. He denied chills. No significant weight change. No double vision. No ear discharge. Denied having any rhinorrhea. He did admit to having a scratchy throat. No thyroid enlargement. There is chest pain from HPI. He does admit to shortness of breath. No orthopnea. No nocturnal dyspnea. There was no abdominal pain. There was 1 episode of dry heaves, but no vomiting. No dysuria, no frequency. No seizure, no loss of consciousness. No pruritus and no skin ulcerations. Review of 14 systems completed, all others negative. PHYSICAL EXAMINATION GENERAL: At this time, Mr. Graves is a 59-year-old male patient, he is sitting in the ED stretcher, he does not appear to be in any acute distress. VITAL SIGNS: Blood pressure 114/80, pulse 103, respirations 20, O2 saturation 93%, temperature 96.9. HEENT: Head: Atraumatic, normocephalic. Eyes: EOMs intact. Sclerae anicteric and not pale. Throat: Oral mucosa appears to be moist. No oropharyngeal erythema. NECK: Supple. LUNGS: He does have some rhonchi noted in the upper lobes. He had equal diaphragmatic expansion. No wheezing was heard. HEART: Heart sounds S1, S2. He had regular rate and rhythm. ABDOMEN: Soft, flat, nontender. Bowel sounds were present. EXTREMITIES: Pulses were 2+ throughout. No peripheral edema. He is moving all 4 extremities with 5/5 strength. NEUROLOGICAL: He is awake. He is alert. He is oriented x3. His tongue is midline. Winding Rack Operator were equal. He had no gross focal deficits. SKIN: Intact. DIAGNOSTIC STUDIES/LAB DATA: His labs today revealed a WBC of 7.0, RBC of 3.94 , hemoglobin of 12.7, hematocrit of 38, platelet count was clumped. His VBG revealed a pH of 7.39, pO2 of 47, pCO2 of 50, bicarb of 27. Chemistry revealed sodium 139, potassium 4.3, chloride 103, bicarb 29, BUN 26, creatinine 0.79, glucose 108. Total bili 0.6, AST 90, ALT 65, alk phos 95. Troponin 0.03. BNP of 400. Albumin 3.9. He had a chest x-ray obtained today, when I reviewed it, he does appear to have , to me looks like fibrotic changes of the lungs. If we look to his previous chest x- ray, it appears to be similar to these changes. He has hyperinflation. It appears to be similar to his previous chest x-ray. Question if there is an infiltrate in the middle lobe; however, again it appeared to be similar on his x -ray in October 2018. He had an EKG obtained today, which showed a sinus tachycardia, rate of 110. He appears to have a right bundle-branch block and left fascicular block as well. It looks like he has worsening T-wave inversions, but I think it is just progression of his block. When you compare to the previous EKGs, the block looks again more progressed at this point. He has had a right bundle previously. I reviewed this with my attending. Old medical records were reviewed. ASSESSMENT AND PLAN: Mr. Graves is a 59-year-old male patient coming in to the ED today with complaints of worsening shortness of breath, generally getting worse over the last 3 weeks. On evaluation, he was found to have a mildly elevated troponin, EKG changes. In addition to this, mildly elevated LFTs. There was concern for COPD exacerbation versus CHF. He will be admitted under inpatient status for: 1. Chronic obstructive pulmonary disease exacerbation. I do not believe the patient is having CHF exacerbation. My concern for the COPD exacerbation, the fact that he does have elevated troponin and slight EKG changes. I would like to get a CTA. He is tachycardic. Just to make sure that he does not have a pulmonary embolism, which could be explaining some of these findings. Going forward, I do want to put him on azithromycin. He is meeting SIRS criteria. I would like to flu swab him. I would like to culture him and get a lactic acid. I ordered blood cultures and legionella antigen, Strep pneumo antigen. I will try to get a sputum if possible. We will get urine culture as well. For the time being, he will be placed on steroids, nebs [id number]. We will continue with pulmonary toileting and continue to follow. 2. Elevated troponin. This could be demand ischemia. Again, I would like to rule out a PE given his tachycardia and worsening shortness of breath. So, I have ordered a CTA. I am going to trend his troponins. We will get an echocardiogram in the morning and we will check an EKG in the morning as well. 3. Elevated LFTs. Etiology is unclear. This could be viral related. I am going to trend these. If they are elevated, we will consider getting an ultrasound. 4. History of squamous cell lung cancer. He can follow up with his primary for this, will need to establish. 5. Tobacco abuse. I have offered smoking cessation and counseling. I have started a nicotine patch. 6. DVT prophylaxis: He is high risk and will be placed on heparin subcu. 7. Code status: Full code. 8. Fluids, electrolytes and nutrition: He can have a regular diet. TIME SPENT: The time spent on the admission was 60 minutes, greater than half the time spent [id number] with the patient obtaining my history and physical; other half time spent going over the plan of care with the patient and implementing plan of care. I discussed the plan of care with my attending, Dr. Clark, she is in agreement. NIKHIL FINNEGAN NP [id number]/CPS #: [id number] ELISEO
[2019-10-16 01:37] LABS: Troponin I 0.04 ng/mL (<0.03)
[2019-10-16 01:39] LABS: Platelet Count Platelets clumped. 10^3/uL (150-450)
[2019-10-16] MEDS: Azithromycin 500 mg/250 ml NS 500 MG/250 ML BAG IVPB SCH ×2 (01:43→20:06)
[2019-10-16] MEDS: Acetaminophen TAB* 325 MG PO PRN (01:48)
[2019-10-16] MEDS: Nicotine PATCH 14 MG/24 HR* PATCH TRANSDERM SCH ×2 (01:50→08:01)
[2019-10-16 04:06] LABS: Troponin I 0.04 ng/mL (<0.03)
[2019-10-16 05:48] LABS: Hematocrit 39 % (42-52); Hemoglobin 13.2 g/dL (14.0-18.0); Mean Corpuscular HGB Conc 34 g/dL (31-36); Mean Corpuscular Hemoglobin 32 pg (27-31); Mean Corpuscular Volume 95 fL (80-94); Red Blood Count 4.11 10^6 /uL (4.18-5.48); Red Cell Distribution Width 15 % (10-15); White Blood Count 5.4 10^3/uL (3.5-10.8)
[2019-10-16 05:54] LABS: INR 1.2 (0.82-1.09)
[2019-10-16] MEDS ORDERED: Heparin VIAL(*) 5000 UNITS/ML VIAL (FIVE THOUSAND) SUBCUT SCH (06:00)
[2019-10-16 06:21] LABS: Albumin 3.6 g/dL (3.2-5.2); Calcium 8.3 mg/dL (8.6-10.3); Potassium 4.2 mmol/L (3.5-5.0); Total Bilirubin 0.4 mg/dL (0.2-1.0); Troponin I 0.04 ng/mL (<0.03)
[2019-10-16 06:27] LABS: Albumin/Globulin Ratio 1.3 (1-3); BUN/Creatinine Ratio 30.6 (8-20); EGFR African American 110.9 (>60); EGFR Non-African American 91.6 (>60); Globulin 2.8 g/dL (2-4); Total Protein 6.4 g/dL (6.4-8.9)
[2019-10-16] MEDS: Mometasone/Formoter 200/5 MDI INH SCH ×3 (07:04→19:39)
[2019-10-16 07:18] LABS: ABS Lymphocytes 0.2 10^3/ul (1.0-4.8); ABS Monocytes 0.1 10^3/ul (0-0.8); Lymphocyte % 4.5 %
[2019-10-16 07:21] LABS: Platelet Count Platelets clumped. 10^3/uL (150-450)
[2019-10-16 07:53] LABS: Platelet Count, Citrated 246 10^3/ul (150-450)
[2019-10-16] MEDS: Enoxaparin(*) 40 MG/0.4 ML SYR SUBCUT SCH (08:02)
[2019-10-16] MEDS: NS 0.9% 1000 ML** 1,000 ML IV SCH ×2 (09:09→19:04)
--- NOTE | 2019-10-16 10:57 | ECHO ---
*[facility]* [place] [address] Fax #: [phone] Transthoracic Echocardiogram Patient: Rodrigo Graves : 1960 Study Date: 10/16/2019 Age: 59 Gender: M HR: 95 bpm Height: 72 in /182.9 cm BSA: 1.83 m^2 Weight: 139.7 lb /63.5 kg BMI: 19 kg/m^2 *Compactor Driver: * Grace Tejeda RD *Referring Physician: * Nikhil KeenanReading Physician: * Terry Flood MD Indications: SOB. History: Chronic obstructive pulmonary disease. Lung Cancer. Risk factors: Current tobacco use. Labs, prior tests, procedures, and surgery: Left Upper lobectomy. Conclusions Summary: - Left ventricle: The cavity size is normal. Wall thickness is mildly increased. Systolic function is normal. The estimated ejection fraction is 55-60%. Wall motion is normal; there are no regional wall motion abnormalities. Doppler parameters are consistent with abnormal left ventricular relaxation (grade 1 diastolic dysfunction). - Right ventricle: The cavity size is severely dilated. Systolic function is severely reduced. Systolic pressure is moderately to severely increased. - Ventricular septum: There is septal flattening of the interventricular septum consistent with RV volume or pressure overload. - Right atrium: The atrium is mildly to moderately dilated. - Tricuspid valve: There is moderate regurgitation. - Aortic root: The aortic root is mildly dilated. - Ascending aorta: The ascending aorta is mildly dilated. - Since the prior echocardiogram completed 03/31/09, pertinent changes are prior normal right ventricular size and function noted, prior normal right atrial size reported as well as prior normal aortic root size and normal ascending aortic size reported. Study data: Transthoracic echocardiogram. Procedure: Transthoracic echocardiography was performed. Image quality was fair. Complete 2D, spectral Doppler, and color flow Doppler. Location: Bedside. Patient status: Inpatient. Patient room number: 441-02. Rhythm: Normal sinus rhythm. Findings Left ventricle: The cavity size is normal. Wall thickness is mildly increased. Systolic function is normal. The estimated ejection fraction is 55-60%. Wall motion is normal; there are no regional wall motion abnormalities. Doppler parameters are consistent with abnormal left ventricular relaxation (grade 1 diastolic dysfunction). Right ventricle: The cavity size is severely dilated. Systolic function is severely reduced. Systolic pressure is moderately to severely increased. Ventricular septum: There is septal flattening of the interventricular septum consistent with RV volume or pressure overload. Left atrium: The atrium is normal in size. Right atrium: The atrium is mildly to moderately dilated. Mitral valve: The Mitral valve annulus appears mildly calcified. The leaflets are mildly thickened. There is trace regurgitation. Aortic valve: The annulus is mildly calcified. The valve is trileaflet. Mild thickening involving the noncoronary cusp. Thickening, consistent with sclerosis. There is no evidence of stenosis. There is trace regurgitation. Tricuspid valve: The leaflets are normal thickness. There is moderate regurgitation. Pulmonic valve: The leaflets are normal thickness. There is no evidence of stenosis. There is trace regurgitation. Aorta: Aortic root: The aortic root is mildly dilated. Ascending aorta: The ascending aorta is mildly dilated. Aortic arch: The aortic arch is appears normal. Pericardium: There is no significant pericardial effusion. Pulmonary arteries: The main pulmonary artery is dilated. Systemic veins: Inferior vena cava: The vessel is dilated. There is (>= 50%) respiratory change in the IVC dimension. Measurements Left ventricle Value Ref Aortic valve Value Ref MARCO, LAX 4.5 cm 4.2 - 5.8 Amanda diam, ED 2.1 cm ----- ESD, LAX 3.8 cm 2.5 - 4.0 Peak v, S 1.22 m/sec ----- FS, LAX (L) 15 % 25 - 43 VTI, S 24.0 cm ----- PW, ED, LAX (H) 1.2 cm 0.6 - 1.0 Mean grad, S 4.0 mm Hg ----- FS (L) 15 % 25 - 43 Peak grad, S 6.0 mm Hg ----- Mid-wall FS 7 % LVOT/AV, VTI ratio 0.71 ----- PW, ED (H) 1.2 cm 0.6 - 1.0 E', lat amanda, TDI (L) 6.9 cm/sec >=10.0 Mitral valve Value Ref E/e', lat amanda, 8 Peak E 0.56 m/sec ----- TDI Peak A 0.84 m/sec ----- E', med amanda, TDI (L) 4.1 cm/sec >=7.0 Decel time 134 ms --- -- E/e', med amanda, 14 Peak E/A ratio 0.7 ----- TDI E', avg, TDI 5.5 cm/sec Pulmonic valve Value Ref E/e', avg, TDI 10 <=14 Peak v, S 0.68 m/sec --- -- Peak grad, S 2.0 mm Hg ----- LVOT Value Ref Peak vahid, S 0.94 m/sec Tricuspid valve Value Ref VTI, S 17.0 cm TR peak v (H) 3.41 m/sec <=2.8 Mean grad, S 2 mm Hg Peak RV-RA grad, S 47 mm Hg ----- Ventricular septum Value Ref Aortic root Value Ref IVS, ED (H) 1.1 cm 0.6 - 1.0 Root diam 3.9 cm <4.0 Right ventricle Value Ref Ascending aorta Value Ref MARCO, LAX 3.7 cm AAo AP diam, S 3.6 cm ----- MARCO minor ax, A4C (H) 5.3 cm 1.9 - 3.5 mid Aortic arch Value Ref Pressure, S 55 mm Hg Arch diam 2.2 cm ----- RVOT Value Ref Decending aorta Value Ref Diam, S 3.0 cm Etta peak vahid 0.64 m/sec ----- Left atrium Value Ref Pulmonary artery Value Ref AP dim, ES (L) 2.60 cm 3.00 - Pressure, S 53.0 mm Hg ----- 4.00 ML dim, A4C 4.0 cm Inferior vena cava Value Ref SI dim, A4C 4.5 cm Diam 2.4 cm ----- Vol/bsa, ES, 1-p 18 ml/m^2 12 - 37 A4C Vol/bsa, ES, A/L 30 ml/m^2 16 - 34 Right atrium Value Ref SI dim, ES (H) 5.5 cm 3.4 - 5.3 ML dim, ES, A4C (H) 5.6 cm 2.6 - 4.4 Estimated RAP 8 mm Hg Legend: (L) and (H) johanna values outside specified reference range. Prepared and electronically signed by Terry Flood MD 10/16/2019 10:56
--- NOTE | 2019-10-16 12:48 | PN ---
Subjective Date of Service: 10/16/19 Interval History: Patient is improved, but is still having wheezing and SOB. Patient is still coughing but not bringing anything up. Patient denies F/C, N/V, abdominal pain, diarrhea, CP, dizziness, palpitations, or other pain. Family History: Unchanged from Admission Social History: Unchanged from Admission Past Medical History: Unchanged from Admission Objective Active Medications: Acetaminophen (Tylenol Tab*) 650 mg PO Q4H PRN PRN Reason: PAIN - MILD Last Admin: 10/16/19 01:48 Dose: 650 mg Albuterol (Ventolin 2.5 Mg/3 Ml Neb.Josefa*) 2.5 mg INH Q2H PRN PRN Reason: SOB/WHEEZING Albuterol/Ipratropium (Duoneb (Albuterol 2.5 Mg/Ipratropium 0.5 Mg)) 1 neb INH Q4H REPLACED BY [facility] Last Admin: 10/16/19 10:56 Dose: 1 neb Enoxaparin Sodium (Lovenox(*)) 40 mg SUBCUT Q24H REPLACED BY [facility] Last Admin: 10/16/19 08:02 Dose: 40 mg Azithromycin (Zithromax 500 Mg/250 Ml) 500 mg in 250 mls @ 250 mls/hr IVPB Q24HR@2100 REPLACED BY [facility] Last Admin: 10/16/19 01:43 Dose: 250 mls/hr Sodium Chloride (Ns 0.9% 1000 Ml) 1,000 mls @ 100 mls/hr IV PER RATE REPLACED BY [facility] Last Admin: 10/16/19 09:09 Dose: 100 mls/hr Mometasone Furoate/Formoterol Fumar (Dulera 200/5 Mdi*) 2 puff INH BID REPLACED BY [facility] Last Admin: 10/16/19 10:56 Dose: 2 puff Nicotine (Nicotine Patch 14 Mg/24 Hr*) 1 patch TRANSDERM DAILY REPLACED BY [facility] Last Admin: 10/16/19 08:01 Dose: Not Given Pharmacy Profile Note (Nicotine Patch Removal Note*) 1 note FOLLOW UP 2099 REPLACED BY [facility] Prednisone (Deltasone 20 Mg Tab) 60 mg PO DAILY REPLACED BY [facility] Last Admin: 10/16/19 08:01 Dose: 60 mg Vital Signs - 8 hr 10/16/19 10/16/19 10/16/19 07:56 08:00 08:06 Temperature 97.2 F Pulse Rate 89 Respiratory 20 18 Rate Blood Pressure 89/61 96/62 (mmHg) O2 Sat by Pulse 94 Oximetry 10/16/19 10/16/19 10:59 11:13 Temperature 97.7 F Pulse Rate 80 51 Respiratory 18 20 Rate Blood Pressure 106/80 (mmHg) O2 Sat by Pulse 96 91 Oximetry Oxygen Devices in Use Now: Nasal Cannula Appearance: Patient is a 59yo male who appears stated age and is sitting in the bed in NAD. Patient is cachectic and unkempt. Eyes: No Scleral Icterus, PERRLA Ears/Nose/Mouth/Throat: NL Teeth, Lips, Gums, Clear Oropharnyx, Mucous Membranes Moist Neck: NL Appearance and Movements; NL JVP, Trachea Midline Respiratory: Symmetrical Chest Expansion and Respiratory Effort, - - Wheezing throughout. Cardiovascular: NL Sounds; No Murmurs; No JVD, No Edema, - - Tachycardia Abdominal: NL Sounds; No Tenderness; No Distention, No Hepatosplenomegaly Lymphatic: No Cervical Adenopathy Extremities: No Edema, No Clubbing, Cyanosis Skin: No Rash or Ulcers, No Nodules or Sclerosis Neurological: Alert and Oriented x 3, NL Sensation, NL Muscle Strength and Tone , - - CN II-XII intact. Result Diagrams: 10/16/19 05:38 10/16/19 05:38 Microbiology and Other Data: Microbiology 10/16/19 01:00 Legionella Urinary Antigen - Final Urine Negative Legionella Antigen Streptococcus pneumoniae Ag Screen - Final Negative S. pneumo Antigen Assess/Plan/Problems-Billing Assessment: Patient is a 59yo male with a PMH for COPD with chronic hypoxic respiratory failure, Squamous Cell Lung Cancer S/P lobectomy, here with worsening SOB, found to have COPD exacerbation, improving on treatment. - Patient Problems (1) COPD with exacerbation Current Visit: No Status: Acute Code(s): J44.1 - CHRONIC OBSTRUCTIVE PULMONARY DISEASE W (ACUTE) EXACERBATION SNOMED Code(s): 037551523 Comment: - Improving - Continue duonebs, prednisone and Azithromycin - Chronic triple inhaler therapy. - On 2L O2 and saturating well. (2) PHT (pulmonary hypertension) Current Visit: Yes Status: Acute Code(s): I27.20 - PULMONARY HYPERTENSION, UNSPECIFIED SNOMED Code(s): 69654144 Comment: - Severe, with RV strain on echo - Likely from chronic hypoxia and oxygen non-compliance - Would recommend continuous O2 (3) Shortness of breath Current Visit: No Status: Acute Priority: High Onset Date: 06/04/14 Code (s): R06.02 - SHORTNESS OF BREATH SNOMED Code(s): 467697435 Comment: - Likely related to COPD exacerbation and possibly severe pHTN (4) Abnormal morphology of platelets Current Visit: No Status: Acute Code(s): R79.89 - OTHER SPECIFIED ABNORMAL FINDINGS OF BLOOD CHEMISTRY SNOMED Code(s): 279797688 Comment: - Recurrent platelet clumping on CBC - Unclear significance, normal number with citrated tube - No history of thrombosis. (5) Tobacco abuse counseling Current Visit: No Status: Acute Code(s): Z71.6 - TOBACCO ABUSE COUNSELING SNOMED Code(s): 908253998 Comment: - Would benefit from total abstinence. (6) DVT prophylaxis Current Visit: No Status: Acute Code(s): JDJ8936 - SNOMED Code(s): 359335883 Comment: - Lovenox (7) Full code status Current Visit: No Status: Acute Code(s): Z78.9 - OTHER SPECIFIED HEALTH STATUS SNOMED Code(s): 717304650 Status and Disposition: Inpatient with COPD Exacerbation
[2019-10-16] MEDS ORDERED: Benzocaine/Menthol LOZ* 1 LOZENGE MT PRN (14:32)
[2019-10-16] MEDS: Nicotine Patch Removal NOTE FOLLOW UP SCH (20:06)
[2019-10-16] MEDS ORDERED: PROCHLORPERAZINE INJ 5 MG/ML 2 ML VIAL IV PRN (22:50)
[2019-10-16] MEDS ORDERED: Al Hydrox/Mg Hydrox/Simet LIQ* 30 ML UDC PO PRN (22:50)
[2019-10-17] MEDS: Albuterol/Ipratropium NEB.SOL* Albuterol 2.5 MG/Ipratropium 0.5 MG 3 ML INH SCH ×7 (04:00→23:19)
[2019-10-17 07:37] LABS: Hematocrit 39 % (42-52); Mean Corpuscular HGB Conc 34 g/dL (31-36); Mean Corpuscular Hemoglobin 32 pg (27-31); Mean Corpuscular Volume 95 fL (80-94); Red Blood Count 4.04 10^6 /uL (4.18-5.48); Red Cell Distribution Width 15 % (10-15); White Blood Count 9.2 10^3/uL (3.5-10.8)
[2019-10-17 07:38] LABS: ABS Lymphocytes 1.1 10^3/ul (1.0-4.8); Eosinophil % 0.1 %; Lymphocyte % 12.2 %
[2019-10-17 07:52] LABS: BUN/Creatinine Ratio 28.1 (8-20); Calcium 8.3 mg/dL (8.6-10.3); EGFR African American 153.8 (>60); EGFR Non-African American 127.1 (>60); Potassium 4.2 mmol/L (3.5-5.0)
[2019-10-17] MEDS ORDERED: Magnesium Oxide TAB* 400 MG PO ONE (07:57)
[2019-10-17] MEDS: Nicotine PATCH 14 MG/24 HR* PATCH TRANSDERM SCH (08:45)
[2019-10-17] MEDS: Acetaminophen TAB* 325 MG PO PRN ×2 (08:58→15:59)
[2019-10-17] MEDS: Magnesium Sulfate 2 GM IV* 2 GM/50 ML BAG IVPB SCH ×2 (09:00→11:00)
[2019-10-17] MEDS: Enoxaparin(*) 40 MG/0.4 ML SYR SUBCUT SCH (09:00)
[2019-10-17 09:22] LABS: Platelet Count Platelets clumped. 10^3/uL (150-450)
[2019-10-17] MEDS: Mometasone/Formoter 200/5 MDI INH SCH ×2 (09:42→20:45)
[2019-10-17 10:01] LABS: Mean Platelet Volume 9.3 fL (7.4-10.4); Platelet Count 251 10^3/uL (150-450)
--- NOTE | 2019-10-17 15:01 | PN ---
Subjective Date of Service: 10/17/19 Interval History: Resting in bed on assessment. Mild dyspnea noted while talking. Reports continued shortness of breath with minor improvement since admission. Reports dry cough. No cp, palpitations, dizziness, fever, chills, nausea, vomiting. Family History: Unchanged from Admission Social History: Unchanged from Admission Past Medical History: Unchanged from Admission Objective Active Medications: Acetaminophen (Tylenol Tab*) 650 mg PO Q4H PRN PRN Reason: PAIN - MILD Last Admin: 10/17/19 08:58 Dose: 650 mg Al Hydrox/Mg Hydrox/Simethicone (Maalox Plus*) 30 ml PO Q6H PRN PRN Reason: INDIGESTION Albuterol (Ventolin 2.5 Mg/3 Ml Neb.Josefa*) 2.5 mg INH Q2H PRN PRN Reason: SOB/WHEEZING Albuterol/Ipratropium (Duoneb (Albuterol 2.5 Mg/Ipratropium 0.5 Mg)) 1 neb INH Q4H [facility] Last Admin: 10/17/19 14:18 Dose: 1 neb Enoxaparin Sodium (Lovenox(*)) 40 mg SUBCUT Q24H [facility] Last Admin: 10/17/19 09:00 Dose: 40 mg Azithromycin (Zithromax 500 Mg/250 Ml) 500 mg in 250 mls @ 250 mls/hr IVPB Q24HR@2100 [facility] Last Admin: 10/16/19 20:06 Dose: 250 mls/hr Sodium Chloride (Ns 0.9% 1000 Ml) 1,000 mls @ 100 mls/hr IV PER RATE [facility] Last Admin: 10/16/19 19:04 Dose: 100 mls/hr Mometasone Furoate/Formoterol Fumar (Dulera 200/5 Mdi*) 2 puff INH BID [facility] Last Admin: 10/17/19 09:42 Dose: 2 puff Nicotine (Nicotine Patch 14 Mg/24 Hr*) 1 patch TRANSDERM DAILY [facility] Last Admin: 10/17/19 08:45 Dose: Not Given Pharmacy Profile Note (Nicotine Patch Removal Note*) 1 note FOLLOW UP 2099 [facility] Last Admin: 10/16/19 20:06 Dose: Not Given Prednisone (Deltasone 20 Mg Tab) 60 mg PO DAILY [facility] Last Admin: 10/17/19 08:59 Dose: 60 mg Prochlorperazine Edisylate (Compazine Inj*) 10 mg IV Q6H PRN PRN Reason: NAUSEA/VOMITING Throat Lozenges (Chloraseptic Regina*) 1 regina MT Q6H PRN PRN Reason: SORE THROAT Last Admin: 10/16/19 15:19 Dose: 1 regina Vital Signs - 8 hr 10/17/19 10/17/19 10/17/19 07:15 08:00 09:42 Temperature 97.5 F Pulse Rate 80 105 Respiratory 20 16 20 Rate Blood Pressure 97/70 (mmHg) O2 Sat by Pulse 100 92 Oximetry 10/17/19 10/17/19 11:15 14:19 Temperature 97.8 F Pulse Rate 105 103 Respiratory 20 22 Rate Blood Pressure 121/108 (mmHg) O2 Sat by Pulse 96 94 Oximetry Oxygen Devices in Use Now: Nasal Cannula Appearance: Mild dyspnea noted while talking. Eyes: No Scleral Icterus Ears/Nose/Mouth/Throat: NL Teeth, Lips, Gums Neck: NL Appearance and Movements; NL JVP Respiratory: - - Dyspnea with conversing. Decreased air movement. Sporadic wheeze. Cardiovascular: NL Sounds; No Murmurs; No JVD, RRR, No Edema Abdominal: NL Sounds; No Tenderness; No Distention Lymphatic: No Cervical Adenopathy Extremities: No Edema Skin: No Rash or Ulcers Neurological: Alert and Oriented x 3 Nutrition: Taking PO's - Nutrition: Malnutrition Diagnosis/Plan Malnutrition Assessment by Registered Dietitian: . Result Diagrams: 10/17/19 09:41 10/17/19 07:27 Additional Lab and Data: Laboratory Results - last 24 hr 10/17/19 10/17/19 10/17/19 07:27 07:27 09:41 WBC 9.2 RBC 4.04 L Hgb 13.0 L Hct 39 L MCV 95 H MCH 32 H MCHC 34 RDW 15 Plt Count Platelets clumped. H MPV Neut % (Auto) 76.6 Lymph % (Auto) 12.2 [place] % (Auto) 10.9 Eos % (Auto) 0.1 Baso % (Auto) 0.2 Absolute Neuts (auto) 7.0 Absolute Lymphs (auto) 1.1 Absolute Monos (auto) 1.0 H Absolute Eos (auto) 0.0 Absolute Basos (auto) 0.0 Absolute Nucleated RBC 0.0 Nucleated RBC % 0.0 Sodium 139 Potassium 4.2 Chloride 104 Carbon Dioxide 31 Anion Gap 4 BUN 18 Creatinine 0.64 L Est GFR ( Amer) 153.8 Est GFR (Non-Af Amer) 127.1 BUN/Creatinine Ratio 28.1 H Glucose 96 Calcium 8.3 L Magnesium 1.0 L 1.2 L 10/17/19 09:41 WBC RBC Hgb Hct MCV MCH MCHC RDW Plt Count 251 MPV 9.3 Neut % (Auto) Lymph % (Auto) [place] % (Auto) Eos % (Auto) Baso % (Auto) Absolute Neuts (auto) Absolute Lymphs (auto) Absolute Monos (auto) Absolute Eos (auto) Absolute Basos (auto) Absolute Nucleated RBC Nucleated RBC % Sodium Potassium Chloride Carbon Dioxide Anion Gap BUN Creatinine Est GFR ( Amer) Est GFR (Non-Af Amer) BUN/Creatinine Ratio Glucose Calcium Magnesium Microbiology and Other Data: Microbiology 10/15/19 23:55 Urine Culture - Final Urine No Growth (<1,000 CFU/mL) 10/16/19 00:00 Aerobic Blood Culture - Preliminary Blood Venous No Growth Day 1 Anaerobic Blood Culture - Preliminary No Growth Day 1 10/16/19 00:00 Aerobic Blood Culture - Preliminary Blood Venous No Growth Day 1 Anaerobic Blood Culture - Preliminary No Growth Day 1 10/16/19 16:30 Gram Stain - Final Sputum 10/16/19 01:00 Legionella Urinary Antigen - Final Urine Negative Legionella Antigen Streptococcus pneumoniae Ag Screen - Final Negative S. pneumo Antigen Assess/Plan/Problems-Billing Assessment: Patient is a 59yo male with a PMH for COPD with chronic hypoxic respiratory failure, Squamous Cell Lung Cancer S/P lobectomy, here with worsening SOB, found to have COPD exacerbation, improving on treatment. - Patient Problems (1) Hypomagnesemia Comment: - Mag 1.0 this morning. Replacement ordered. Recheck at 1700. (2) Transaminitis Comment: - Elevated AST/ALT on admission. - Recheck tomorrow - Could be viral in etiology - If continues consider ultrasound (3) PHT (pulmonary hypertension) Comment: - Reports he only wears his supplemental oxygen approx 2 to 3 hrs a day when he is suppose to be wearing it 24 hrs. Reports this is bc his concentrator is in his bedroom and he does not have tanks. Will discuss with SW - Likely from chronic hypoxia and oxygen non-compliance - Severe, with RV strain on echo - Would recommend continuous O2 (4) Abnormal morphology of platelets Comment: - Recurrent platelet clumping on CBC - Unclear significance, normal number with citrated tube - No history of thrombosis. (5) COPD with exacerbation Comment: - Slowly improving - Continue duonebs, prednisone and Azithromycin - Chronic triple inhaler therapy. - On 5L O2 and saturating 94. Reports he turns it down to 3L at rest but needs to increase to 5 with any activity (6) Shortness of breath Comment: - Minor improvement since admission - Likely related to COPD exacerbation and possibly severe pHTN (7) Tobacco abuse counseling Comment: - Discussed importance of quitting - Would benefit from total abstinence. (8) Full code status (9) DVT prophylaxis Comment: - Lovenox Status and Disposition: Inpatient with COPD Exacerbation Attending: Charlie Browning
[2019-10-17] MEDS: Azithromycin 500 mg/250 ml NS 500 MG/250 ML BAG IVPB SCH (19:56)
[2019-10-17] MEDS: Nicotine Patch Removal NOTE FOLLOW UP SCH (20:04)
[2019-10-17] MEDS: Calcium Carbonate CHEW TAB* 500 MG (TUMS) PO PRN (20:30)
[2019-10-18] MEDS: NS 0.9% 1000 ML** 1,000 ML IV SCH ×2 (00:18→12:05)
[2019-10-18] MEDS: Witch Hazel PAD* JAR TOPICAL SCH ×2 (00:21→10:44)
[2019-10-18] MEDS: Albuterol/Ipratropium NEB.SOL* Albuterol 2.5 MG/Ipratropium 0.5 MG 3 ML INH SCH ×4 (01:51→19:21)
[2019-10-18] MEDS: Acetaminophen TAB* 325 MG PO PRN ×3 (05:56→20:41)
[2019-10-18 06:29] LABS: Albumin 3.1 g/dL (3.2-5.2); Albumin/Globulin Ratio 1.3 (1-3); BUN/Creatinine Ratio 30.4 (8-20); Calcium 8.1 mg/dL (8.6-10.3); EGFR African American 179.5 (>60); EGFR Non-African American 148.3 (>60); Globulin 2.3 g/dL (2-4); Indirect Bilirubin 0.2 mg/dL (0.3-1.0); Magnesium 1.3 mg/dL (1.9-2.7); Total Bilirubin 0.3 mg/dL (0.2-1.0); Total Protein 5.4 g/dL (6.4-8.9)
[2019-10-18] MEDS: Mometasone/Formoter 200/5 MDI INH SCH ×2 (07:17→19:21)
[2019-10-18 07:18] LABS: Hematocrit 35 % (42-52); Hemoglobin 11.6 g/dL (14.0-18.0); Mean Corpuscular HGB Conc 34 g/dL (31-36); Mean Corpuscular Hemoglobin 32 pg (27-31); Mean Corpuscular Volume 96 fL (80-94); Red Cell Distribution Width 15 % (10-15); White Blood Count 8.1 10^3/uL (3.5-10.8)
[2019-10-18 07:19] LABS: ABS Monocytes 0.9 10^3/ul (0-0.8); ABS Neutrophils 6.2 10^3/ul (1.5-7.7); Lymphocyte % 12.8 %; Platelet Count Platelets clumped. 10^3/uL (150-450)
[2019-10-18] MEDS ORDERED: Magnesium Sulfate 2 GM IV* 2 GM/50 ML BAG IVPB ONE (09:13)
[2019-10-18] MEDS: Enoxaparin(*) 40 MG/0.4 ML SYR SUBCUT SCH (10:43)
[2019-10-18] MEDS: Nicotine PATCH 14 MG/24 HR* PATCH TRANSDERM SCH (10:45)
--- NOTE | 2019-10-18 15:15 | PN ---
Subjective Date of Service: 10/18/19 Interval History: Patient reports some improvement in work of breathing today. Continues to have cough that is occasionally productive. Reports frequency of cough has improved. Denies cp, nausea, vomiting, diarrhea, fever, chills, dizziness, weakness. Family History: Unchanged from Admission Social History: Unchanged from Admission Past Medical History: Unchanged from Admission Objective Active Medications: Acetaminophen (Tylenol Tab*) 650 mg PO Q4H PRN PRN Reason: PAIN - MILD Last Admin: 10/18/19 10:41 Dose: 650 mg Al Hydrox/Mg Hydrox/Simethicone (Maalox Plus*) 30 ml PO Q6H PRN PRN Reason: INDIGESTION Albuterol (Ventolin 2.5 Mg/3 Ml Neb.Josefa*) 2.5 mg INH Q2H PRN PRN Reason: SOB/WHEEZING Albuterol/Ipratropium (Duoneb (Albuterol 2.5 Mg/Ipratropium 0.5 Mg)) 1 neb INH [id number] AWAKE [facility] Last Admin: 10/18/19 12:07 Dose: 1 neb Calcium Carbonate (Tums*) 500 mg PO Q4H PRN PRN Reason: INDIGESTION Last Admin: 10/17/19 20:30 Dose: 500 mg Enoxaparin Sodium (Lovenox(*)) 40 mg SUBCUT Q24H [facility] Last Admin: 10/18/19 10:43 Dose: 40 mg Azithromycin (Zithromax 500 Mg/250 Ml) 500 mg in 250 mls @ 250 mls/hr IVPB Q24HR@2100 [facility] Last Admin: 10/17/19 19:56 Dose: 250 mls/hr Sodium Chloride (Ns 0.9% 1000 Ml) 1,000 mls @ 100 mls/hr IV PER RATE [facility] Last Admin: 10/18/19 12:05 Dose: 100 mls/hr Mometasone Furoate/Formoterol Fumar (Dulera 200/5 Mdi*) 2 puff INH BID [facility] Last Admin: 10/18/19 07:17 Dose: 2 puff Nicotine (Nicotine Patch 14 Mg/24 Hr*) 1 patch TRANSDERM DAILY [facility] Last Admin: 10/18/19 10:45 Dose: Not Given Pharmacy Profile Note (Nicotine Patch Removal Note*) 1 note FOLLOW UP 2099 [facility] Last Admin: 10/17/19 20:04 Dose: Not Given Prednisone (Deltasone 20 Mg Tab) 60 mg PO DAILY [facility] Last Admin: 10/18/19 10:41 Dose: 60 mg Prochlorperazine Edisylate (Compazine Inj*) 10 mg IV Q6H PRN PRN Reason: NAUSEA/VOMITING Throat Lozenges (Chloraseptic Nasrin*) 1 nasrin MT Q6H PRN PRN Reason: SORE THROAT Last Admin: 10/16/19 15:19 Dose: 1 nasrin Witch Tamika (Tucks*) 1 pad TOPICAL DAILY [facility] Last Admin: 10/18/19 10:44 Dose: 1 pad Vital Signs - 8 hr 10/18/19 10/18/19 10/18/19 07:21 07:27 11:25 Temperature 97.3 F 97.3 F Pulse Rate 87 78 100 Respiratory 17 20 19 Rate Blood Pressure 101/66 95/56 (mmHg) O2 Sat by Pulse 93 100 100 Oximetry 10/18/19 10/18/19 12:08 12:57 Temperature Pulse Rate 78 Respiratory 17 18 Rate Blood Pressure (mmHg) O2 Sat by Pulse 98 Oximetry Oxygen Devices in Use Now: Nasal Cannula Appearance: Mild dyspnea with conversing. Eyes: No Scleral Icterus Ears/Nose/Mouth/Throat: Clear Oropharnyx, Mucous Membranes Moist Respiratory: - - Expiratory Wheeze. Mild dypsnea Cardiovascular: NL Sounds; No Murmurs; No JVD, RRR, No Edema Abdominal: NL Sounds; No Tenderness; No Distention Lymphatic: No Cervical Adenopathy Extremities: No Edema Skin: No Rash or Ulcers Neurological: Alert and Oriented x 3 Nutrition: Taking PO's - Nutrition: Malnutrition Diagnosis/Plan Malnutrition Assessment by Registered Dietitian: Malnutrition Assessment Clinical Characteristics Severe,Environmental Malnutrition Assessment: Muscle Wasting - Temporal (severe) Criteria Inadequate Oral Intake - Pt reports a good appetite, though states his intake is limited while residing in a homeless snf and utilizing food stamps to obtain food; consumed 100% L today - Anticipate meeting <75% nutrient needs >3 mos (moderate) Unintentional Weight Loss - Pt reports unintentional wt loss x3 mos; current wt 127lb, UBW 140lb - 9.2% loss x3 mos (severe) Underweight - BMI 17.2 (notable) Malnutrition Assessment: Nutritional Supplementals/Nourishments - Will Interventions send Ensure Enlive (350kcal, 20g prot/serv) at B , L, and D daily, in addition to Fruited Yogurt (120kcal, 8g prot/serv) and Cheddar Cheese ( 120kcal, 7g prot/serv) at 10:00 and 15:00 daily , to optimize kcal/prot intake; will monitor continued acceptance. Additionally, encouraged pt to discuss barriers to adequate nutrition w/ CM/SW; pt receptive Textures Modifications - Encouraged pt to request modified textures as desired; pt receptive; will monitor tolerance and make further recommendations as indicated Glycemic Control - Dietary restriction not indicated at this time; will continue to monitor BG/FS in the setting of steroid med use Malnutrition Assessment: Goals 1) Pt will tolerate least restrictive dietary textures w/o difficulty chewing 2) Adequate po intake to replete lean body mass , support wt gain and hydration status 3) Maintain fluid/electrolyte balance w/ adequate po intake 4) Maintain glycemic control w/ adequate po intake w/o need for dietary restriction in the setting of steroid med use 5) Maintain bowel regularity w/ adequate po intake w/o development of diarrhea/constipation Result Diagrams: 10/18/19 05:47 10/18/19 05:47 Additional Lab and Data: Laboratory Results - last 24 hr 10/17/19 10/18/19 10/18/19 16:33 05:47 05:47 WBC 8.1 RBC 3.60 L Hgb 11.6 L Hct 35 L MCV 96 H MCH 32 H MCHC 34 RDW 15 Plt Count Platelets clumped. H MPV Not Reportable Neut % (Auto) 76.0 Lymph % (Auto) 12.8 [place] % (Auto) 11.0 Eos % (Auto) 0.0 Baso % (Auto) 0.2 Absolute Neuts (auto) 6.2 Absolute Lymphs (auto) 1.0 Absolute Monos (auto) 0.9 H Absolute Eos (auto) 0.0 Absolute Basos (auto) 0.0 Absolute Nucleated RBC 0.0 Nucleated RBC % 0.0 Sodium 139 Potassium 4.0 Chloride 101 Carbon Dioxide 36 H Anion Gap 2 BUN 17 Creatinine 0.56 L Est GFR ( Amer) 179.5 Est GFR (Non-Af Amer) 148.3 BUN/Creatinine Ratio 30.4 H Glucose 88 Calcium 8.1 L Magnesium 2.3 1.3 L Total Bilirubin 0.30 Direct Bilirubin 0.10 Indirect Bilirubin 0.2 L AST 49 H ALT 61 H Alkaline Phosphatase 66 Total Protein 5.4 L Albumin 3.1 L Globulin 2.3 Albumin/Globulin Ratio 1.3 Microbiology and Other Data: Microbiology 10/16/19 16:30 Gram Stain - Final Sputum Sputum Culture - Preliminary Pseudomonas Aeruginosa 10/16/19 00:00 Aerobic Blood Culture - Preliminary Blood Venous No Growth Day 2 Anaerobic Blood Culture - Preliminary No Growth Day 2 10/16/19 00:00 Aerobic Blood Culture - Preliminary Blood Venous No Growth Day 2 Anaerobic Blood Culture - Preliminary No Growth Day 2 10/15/19 23:55 Urine Culture - Final Urine No Growth (<1,000 CFU/mL) 10/16/19 01:00 Legionella Urinary Antigen - Final Urine Negative Legionella Antigen Streptococcus pneumoniae Ag Screen - Final Negative S. pneumo Antigen Assess/Plan/Problems-Billing Assessment: Patient is a 59yo male with a PMH for COPD with chronic hypoxic respiratory failure, Squamous Cell Lung Cancer S/P lobectomy, here with worsening SOB, found to have COPD exacerbation, improving on treatment. - Patient Problems (1) Pneumonia Comment: - Due to atelectasis versus pneumonia on CT, sputum culture grew Pseudomonas Aeruginosa, and patient having little improvement; Cefepime added to abx regime (2) SVT (supraventricular tachycardia) Comment: - Had short asymptomatic run of SVT while having a bowel movement - Cont to monitor (3) Hypomagnesemia Comment: - 1.3 today. Additional replacement ordered - Mag 1.0 yesterday and received replacement. (4) Transaminitis Comment: - Trending down. - Elevated AST/ALT on admission. - Consider ultrasound if does not resolve - No abd pain (5) PHT (pulmonary hypertension) Comment: - Reports he only wears his supplemental oxygen approx 2 to 3 hrs a day when he is suppose to be wearing it 24 hrs. Reports this is bc his concentrator is in his bedroom and he does not have tanks. Will discuss with SW - Likely from chronic hypoxia and oxygen non-compliance - Severe, with RV strain on echo - Would recommend continuous O2 (6) Abnormal morphology of platelets Comment: - Recurrent platelet clumping on CBC - Unclear significance, normal number with citrated tube - No history of thrombosis. (7) COPD with exacerbation Comment: - Slowly improving - Continue duonebs, prednisone and Azithromycin (Cefepime added today) - Chronic triple inhaler therapy. - On 4L O2 and saturating 94. Reports he turns it down to 3L at rest but needs to increase to 5 with any activity (8) Shortness of breath Comment: - Mild improvement today - Likely related to COPD exacerbation and possibly severe pHTN (9) Tobacco abuse counseling Comment: - Discussed importance of quitting - Would benefit from total abstinence. (10) Full code status (11) DVT prophylaxis Comment: - Lovenox Status and Disposition: Inpatient with COPD Exacerbation Attending: Charlie Browning
[2019-10-18] MEDS: Cefepime 2 GM in Dextrose(*) 2 GM/50 ML BAG IV SCH (18:17)
[2019-10-18] MEDS: Magnesium Oxide TAB* 400 MG PO SCH (20:31)
[2019-10-18] MEDS: Azithromycin 500 mg/250 ml NS 500 MG/250 ML BAG IVPB SCH (20:34)
[2019-10-18] MEDS: Nicotine Patch Removal NOTE FOLLOW UP SCH (21:17)
[2019-10-18] MEDS: Calcium Carbonate CHEW TAB* 500 MG (TUMS) PO PRN (23:36)
[2019-10-19] MEDS: Albuterol/Ipratropium NEB.SOL* Albuterol 2.5 MG/Ipratropium 0.5 MG 3 ML INH SCH ×4 (00:54→19:42)
[2019-10-19] MEDS: NS 0.9% 1000 ML** 1,000 ML IV SCH (01:33)
[2019-10-19] MEDS: Calcium Carbonate CHEW TAB* 500 MG (TUMS) PO PRN (03:02)
[2019-10-19] MEDS: Acetaminophen TAB* 325 MG PO PRN ×3 (03:02→15:59)
[2019-10-19] MEDS ORDERED: Calcium Carbonate CHEW TAB* 500 MG (TUMS) PO ONE (03:05)
[2019-10-19] MEDS: Cefepime 2 GM in Dextrose(*) 2 GM/50 ML BAG IV SCH ×2 (05:45→18:13)
[2019-10-19] MEDS ORDERED: Magnesium Sulf 4 GM/100 ML IV* 4,000 MG/100 ML BAG IVPB ONE ×2 (07:35→08:30)
[2019-10-19] MEDS: Mometasone/Formoter 200/5 MDI INH SCH ×2 (07:36→19:42)
[2019-10-19 07:40] LABS: Magnesium 1.2 mg/dL (1.9-2.7)
[2019-10-19 07:45] LABS: Hematocrit 34 % (42-52); Hemoglobin 11.4 g/dL (14.0-18.0); Mean Corpuscular HGB Conc 34 g/dL (31-36); Mean Corpuscular Hemoglobin 33 pg (27-31); Mean Corpuscular Volume 96 fL (80-94); Red Blood Count 3.51 10^6 /uL (4.18-5.48); Red Cell Distribution Width 15 % (10-15)
[2019-10-19] MEDS: Enoxaparin(*) 40 MG/0.4 ML SYR SUBCUT SCH (07:53)
[2019-10-19] MEDS: Magnesium Oxide TAB* 400 MG PO SCH ×2 (07:53→20:44)
[2019-10-19] MEDS: Nicotine PATCH 14 MG/24 HR* PATCH TRANSDERM SCH (07:54)
[2019-10-19] MEDS: Calcium Carbonate CHEW TAB* 500 MG (TUMS) PO SCH ×4 (07:54→20:45)
[2019-10-19 07:55] LABS: Calcium 8.3 mg/dL (8.6-10.3); EGFR African American 204.5 (>60); Potassium 4.3 mmol/L (3.5-5.0)
[2019-10-19] MEDS: Witch Hazel PAD* JAR TOPICAL SCH (08:05)
[2019-10-19 08:16] LABS: Platelet Count Platelets clumped. 10^3/uL (150-450); White Blood Count 7.2 10^3/uL (3.5-10.8)
--- NOTE | 2019-10-19 14:52 | PN ---
Subjective Date of Service: 10/19/19 Interval History: Patient is feeling much better. Patient still complains of SOB with exertion, but his wheezing, cough, and SOB are diminished at rest. Patient is very interested in a portable concentrator. Family History: Unchanged from Admission Social History: Unchanged from Admission Past Medical History: Unchanged from Admission Objective Active Medications: Acetaminophen (Tylenol Tab*) 650 mg PO Q4H PRN PRN Reason: PAIN - MILD Last Admin: 10/19/19 07:53 Dose: 650 mg Al Hydrox/Mg Hydrox/Simethicone (Maalox Plus*) 30 ml PO Q6H PRN PRN Reason: INDIGESTION Albuterol (Ventolin 2.5 Mg/3 Ml Neb.Josefa*) 2.5 mg INH Q2H PRN PRN Reason: SOB/WHEEZING Albuterol/Ipratropium (Duoneb (Albuterol 2.5 Mg/Ipratropium 0.5 Mg)) 1 neb INH [id number] AWAKE [facility] Last Admin: 10/19/19 13:06 Dose: 1 neb Calcium Carbonate (Tums*) 1,000 mg PO QID [facility] Last Admin: 10/19/19 13:02 Dose: 1,000 mg Enoxaparin Sodium (Lovenox(*)) 40 mg SUBCUT Q24H [facility] Last Admin: 10/19/19 07:53 Dose: 40 mg Cefepime HCl (Maxipime 2 Gm In Dextrose Duplex (*)) 2 gm in 50 mls @ 100 mls/ hr IV Q12H [facility] Last Admin: 10/19/19 05:45 Dose: 100 mls/hr Magnesium Oxide (Magox 400 Tab*) 400 mg PO BID [facility] Last Admin: 10/19/19 07:53 Dose: 400 mg Mometasone Furoate/Formoterol Fumar (Dulera 200/5 Mdi*) 2 puff INH BID [facility] Last Admin: 10/19/19 07:36 Dose: 2 puff Nicotine (Nicotine Patch 14 Mg/24 Hr*) 1 patch TRANSDERM DAILY [facility] Last Admin: 10/19/19 07:54 Dose: Not Given Pharmacy Profile Note (Nicotine Patch Removal Note*) 1 note FOLLOW UP 2100 [facility] Last Admin: 10/18/19 21:17 Dose: Not Given Prednisone (Deltasone 20 Mg Tab) 60 mg PO DAILY [facility] Last Admin: 10/19/19 07:53 Dose: 60 mg Prochlorperazine Edisylate (Compazine Inj*) 10 mg IV Q6H PRN PRN Reason: NAUSEA/VOMITING Throat Lozenges (Chloraseptic Nasirn*) 1 nasrin MT Q6H PRN PRN Reason: SORE THROAT Last Admin: 10/16/19 15:19 Dose: 1 nasrin Eliot Ojedael (Tucks*) 1 pad TOPICAL DAILY [facility] Last Admin: 10/19/19 08:05 Dose: 1 pad Vital Signs - 8 hr 10/19/19 10/19/19 10/19/19 07:15 07:42 08:00 Temperature 98.0 F Pulse Rate 69 78 Respiratory 18 16 20 Rate Blood Pressure 139/108 (mmHg) O2 Sat by Pulse 99 94 Oximetry 10/19/19 10/19/19 11:15 13:07 Temperature 98.0 F Pulse Rate 82 112 Respiratory 18 22 Rate Blood Pressure 105/68 (mmHg) O2 Sat by Pulse 97 94 Oximetry Oxygen Devices in Use Now: Nasal Cannula Appearance: Patient is a 59yo cachectic male who appears older than stated age and is sitting in the bed in [facility]. Eyes: No Scleral Icterus, PERRLA Ears/Nose/Mouth/Throat: NL Teeth, Lips, Gums, Clear Oropharnyx, Mucous Membranes Moist Neck: NL Appearance and Movements; NL JVP, Trachea Midline Respiratory: Symmetrical Chest Expansion and Respiratory Effort, Clear to Auscultation, - - Diminished. Cardiovascular: NL Sounds; No Murmurs; No JVD, RRR, No Edema Abdominal: NL Sounds; No Tenderness; No Distention, No Hepatosplenomegaly Lymphatic: No Cervical Adenopathy Extremities: No Edema, No Clubbing, Cyanosis Skin: No Rash or Ulcers, No Nodules or Sclerosis Neurological: Alert and Oriented x 3, NL Sensation, NL Muscle Strength and Tone , - - CN II-XII intact. - Nutrition: Malnutrition Diagnosis/Plan Malnutrition Assessment by Registered Dietitian: Malnutrition Assessment Clinical Characteristics Severe,Environmental Malnutrition Assessment: Muscle Wasting - Temporal (severe) Criteria Inadequate Oral Intake - Pt reports a good appetite, though states his intake is limited while residing in a homeless intermediate and utilizing food stamps to obtain food; consumed 100% L today - Anticipate meeting <75% nutrient needs >3 mos (moderate) Unintentional Weight Loss - Pt reports unintentional wt loss x3 mos; current wt 127lb, UBW 140lb - 9.2% loss x3 mos (severe) Underweight - BMI 17.2 (notable) Malnutrition Assessment: Nutritional Supplementals/Nourishments - Will Interventions send Ensure Enlive (350kcal, 20g prot/serv) at B , L, and D daily, in addition to Fruited Yogurt (120kcal, 8g prot/serv) and Cheddar Cheese ( 120kcal, 7g prot/serv) at 10:00 and 15:00 daily , to optimize kcal/prot intake; will monitor continued acceptance. Additionally, encouraged pt to discuss barriers to adequate nutrition w/ CM/SW; pt receptive Textures Modifications - Encouraged pt to request modified textures as desired; pt receptive; will monitor tolerance and make further recommendations as indicated Glycemic Control - Dietary restriction not indicated at this time; will continue to monitor BG/FS in the setting of steroid med use Malnutrition Assessment: Goals 1) Pt will tolerate least restrictive dietary textures w/o difficulty chewing 2) Adequate po intake to replete lean body mass , support wt gain and hydration status 3) Maintain fluid/electrolyte balance w/ adequate po intake 4) Maintain glycemic control w/ adequate po intake w/o need for dietary restriction in the setting of steroid med use 5) Maintain bowel regularity w/ adequate po intake w/o development of diarrhea/constipation Result Diagrams: 10/19/19 06:55 10/19/19 06:55 Additional Lab and Data: Laboratory Results - last 24 hr Microbiology and Other Data: Microbiology 10/16/19 16:30 Gram Stain - Final Sputum Sputum Culture - Preliminary Pseudomonas Aeruginosa 10/16/19 00:00 Aerobic Blood Culture - Preliminary Blood Venous No Growth Day 2 Anaerobic Blood Culture - Preliminary No Growth Day 2 10/16/19 00:00 Aerobic Blood Culture - Preliminary Blood Venous No Growth Day 2 Anaerobic Blood Culture - Preliminary No Growth Day 2 10/15/19 23:55 Urine Culture - Final Urine No Growth (<1,000 CFU/mL) 10/16/19 01:00 Legionella Urinary Antigen - Final Urine Negative Legionella Antigen Streptococcus pneumoniae Ag Screen - Final Negative S. pneumo Antigen Assess/Plan/Problems-Billing Assessment: Patient is a 59yo male with a PMH for COPD with chronic hypoxic respiratory failure, Squamous Cell Lung Cancer S/P lobectomy, here with worsening SOB, found to have COPD exacerbation, improving on treatment. - Patient Problems (1) COPD with exacerbation Current Visit: No Status: Acute Code(s): J44.1 - CHRONIC OBSTRUCTIVE PULMONARY DISEASE W (ACUTE) EXACERBATION SNOMED Code(s): 100355100 Comment: - Slowly improving - Continue duonebs, prednisone and cefepi,e - Chronic triple inhaler therapy. - Goal O2 88-92% - On 4L at this time, will still attempt to wean - Colonization with Pseudomonas likeyl contributing to Exacerbation - Continue for 7 day course of antipseudomonal antibiotics (Started on ) (2) PHT (pulmonary hypertension) Current Visit: Yes Status: Acute Code(s): I27.20 - PULMONARY HYPERTENSION, UNSPECIFIED SNOMED Code(s): 53120812 Comment: - Reports he only wears his supplemental oxygen approx 2 to 3 hrs a day when he is suppose to be wearing it 24 hrs. Reports this is bc his concentrator is in his bedroom and he does not have tanks. Will discuss with SW to get portable concentrator - Likely from chronic hypoxia and oxygen non-compliance - Severe, with RV strain on echo - Would recommend continuous O2 (3) Shortness of breath Current Visit: No Status: Acute Priority: High Onset Date: 06/04/14 Code (s): R06.02 - SHORTNESS OF BREATH SNOMED Code(s): 431358922 Comment: - Greatly improved today - Likely related to COPD exacerbation and possibly severe pHTN (4) Abnormal morphology of platelets Current Visit: No Status: Acute Code(s): R79.89 - OTHER SPECIFIED ABNORMAL FINDINGS OF BLOOD CHEMISTRY SNOMED Code(s): 737932697 Comment: - Recurrent platelet clumping on CBC - Unclear significance, normal number with citrated tube - No history of thrombosis. (5) Tobacco abuse counseling Current Visit: No Status: Acute Code(s): Z71.6 - TOBACCO ABUSE COUNSELING SNOMED Code(s): 229001093 Comment: - Discussed importance of quitting - Would benefit from total abstinence. (6) DVT prophylaxis Current Visit: No Status: Acute Code(s): OAS2098 - SNOMED Code(s): 007697568 Comment: - Lovenox (7) Full code status Current Visit: No Status: Acute Code(s): Z78.9 - OTHER SPECIFIED HEALTH STATUS SNOMED Code(s): 977424633 Status and Disposition: Inpatient with COPD Exacerbation, hopeful D/C tomorrow.
[2019-10-19] MEDS ORDERED: Ibuprofen TAB* 600 MG PO ONE (19:58)
[2019-10-19] MEDS: Nicotine Patch Removal NOTE FOLLOW UP SCH (20:46)
[2019-10-20] MEDS: Albuterol/Ipratropium NEB.SOL* Albuterol 2.5 MG/Ipratropium 0.5 MG 3 ML INH SCH ×3 (00:48→13:28)
[2019-10-20] MEDS: Cefepime 2 GM in Dextrose(*) 2 GM/50 ML BAG IV SCH ×2 (05:33→16:43)
[2019-10-20] MEDS ORDERED: Morphine INJ* 2 MG/ML 1 ML SYRINGE (TWO MG - NEW SYRINGE VERSION) IV ONE (06:46)
[2019-10-20 06:47] LABS: BUN/Creatinine Ratio 39.6 (8-20); Blood Urea Nitrogen 21 mg/dL (6-24); CO2 Carbon Dioxide 39 mmol/L (22-32); Calcium 8.8 mg/dL (8.6-10.3); Chloride 98 mmol/L (101-111); EGFR African American 191.2 (>60); EGFR Non-African American 158.1 (>60); Glucose 123 mg/dL (70-100); Magnesium 1.5 mg/dL (1.9-2.7); Potassium 4.3 mmol/L (3.5-5.0); Sodium 137 mmol/L (135-145)
[2019-10-20] MEDS ORDERED: Magnesium Sulfate IV* 3 GM in NS 0.9% 100 ML* 100 ML IVPB ONE (07:14)
[2019-10-20] MEDS: Enoxaparin(*) 40 MG/0.4 ML SYR SUBCUT SCH (07:20)
[2019-10-20] MEDS: Calcium Carbonate CHEW TAB* 500 MG (TUMS) PO SCH ×4 (07:22→19:57)
[2019-10-20] MEDS: Magnesium Oxide TAB* 400 MG PO SCH ×2 (07:23→19:56)
[2019-10-20] MEDS: Nicotine PATCH 14 MG/24 HR* PATCH TRANSDERM SCH (07:25)
[2019-10-20] MEDS: Witch Hazel PAD* JAR TOPICAL SCH (07:25)
[2019-10-20] MEDS: Mometasone/Formoter 200/5 MDI INH SCH ×2 (07:32→19:32)
[2019-10-20 07:33] LABS: Troponin I 0.03 ng/mL (<0.03)
[2019-10-20 10:20] LABS: Troponin I 0.03 ng/mL (<0.03)
[2019-10-20] MEDS: Acetaminophen TAB* 325 MG PO PRN ×2 (11:22→19:56)
[2019-10-20] MEDS ORDERED: Albuterol/Ipratropium NEB.SOL* Albuterol 2.5 MG/Ipratropium 0.5 MG 3 ML INH PRN (13:28)
--- NOTE | 2019-10-20 13:29 | PN ---
Subjective Date of Service: 10/20/19 Interval History: Patient this AM had sudden onset left sided chest pain while walking to the bathroom. This lasted about 10 minutes, was associated with worsening SOB, and resolved with rest. Patient states he has had several similar episodes with exertion prior to admission. Patient denies F/C, N/V, abdominal pain, diarrhea, dizziness, palpitations, or other pain. Family History: Unchanged from Admission Social History: Unchanged from Admission Past Medical History: Unchanged from Admission Objective Active Medications: Acetaminophen (Tylenol Tab*) 650 mg PO Q4H PRN PRN Reason: PAIN - MILD Last Admin: 10/20/19 11:22 Dose: 650 mg Al Hydrox/Mg Hydrox/Simethicone (Maalox Plus*) 30 ml PO Q6H PRN PRN Reason: INDIGESTION Last Admin: 10/19/19 23:29 Dose: 30 ml Albuterol (Ventolin 2.5 Mg/3 Ml Neb.Josefa*) 2.5 mg INH Q2H PRN PRN Reason: SOB/WHEEZING Albuterol/Ipratropium (Duoneb (Albuterol 2.5 Mg/Ipratropium 0.5 Mg)) 1 neb INH [id number] AWAKE [facility] Last Admin: 10/20/19 07:31 Dose: 1 neb Calcium Carbonate (Tums*) 1,000 mg PO QID [facility] Last Admin: 10/20/19 07:22 Dose: 1,000 mg Enoxaparin Sodium (Lovenox(*)) 40 mg SUBCUT Q24H [facility] Last Admin: 10/20/19 07:20 Dose: 40 mg Cefepime HCl (Maxipime 2 Gm In Dextrose Duplex (*)) 2 gm in 50 mls @ 100 mls/ hr IV Q12H [facility] Last Admin: 10/20/19 05:33 Dose: 100 mls/hr Magnesium Oxide (Magox 400 Tab*) 400 mg PO BID [facility] Last Admin: 10/20/19 07:23 Dose: 400 mg Mometasone Furoate/Formoterol Fumar (Dulera 200/5 Mdi*) 2 puff INH BID [facility] Last Admin: 10/20/19 07:32 Dose: 2 puff Nicotine (Nicotine Patch 14 Mg/24 Hr*) 1 patch TRANSDERM DAILY [facility] Last Admin: 10/20/19 07:25 Dose: Not Given Pharmacy Profile Note (Nicotine Patch Removal Note*) 1 note FOLLOW UP 2100 [facility] Last Admin: 10/19/19 20:46 Dose: Not Given Prednisone (Deltasone 20 Mg Tab) 40 mg PO DAILY [facility] Last Admin: 10/20/19 07:42 Dose: Not Given Prochlorperazine Edisylate (Compazine Inj*) 10 mg IV Q6H PRN PRN Reason: NAUSEA/VOMITING Throat Lozenges (Chloraseptic Nasrin*) 1 nasrin MT Q6H PRN PRN Reason: SORE THROAT Last Admin: 10/16/19 15:19 Dose: 1 nasrin Witch Tamika (Tucks*) 1 pad TOPICAL DAILY [facility] Last Admin: 10/20/19 07:25 Dose: 1 pad Vital Signs - 8 hr 10/20/19 10/20/19 10/20/19 06:57 07:33 08:00 Temperature Pulse Rate 79 Respiratory 20 20 20 Rate Blood Pressure (mmHg) O2 Sat by Pulse 99 Oximetry 10/20/19 10/20/19 10:11 11:15 Temperature 98.3 F Pulse Rate 94 Respiratory 18 22 Rate Blood Pressure 112/74 (mmHg) O2 Sat by Pulse 97 Oximetry Oxygen Devices in Use Now: Nasal Cannula Appearance: 59yo cachectic male who appears older than stated age and is sitting in the bed in [facility]. Eyes: No Scleral Icterus, PERRLA Ears/Nose/Mouth/Throat: NL Teeth, Lips, Gums, Clear Oropharnyx, Mucous Membranes Moist Neck: NL Appearance and Movements; NL JVP, Trachea Midline Respiratory: Symmetrical Chest Expansion and Respiratory Effort, - - Slight expiratory wheezing. Cardiovascular: NL Sounds; No Murmurs; No JVD, RRR, No Edema Abdominal: NL Sounds; No Tenderness; No Distention, No Hepatosplenomegaly Lymphatic: No Cervical Adenopathy Extremities: No Edema, No Clubbing, Cyanosis Skin: No Rash or Ulcers, No Nodules or Sclerosis Neurological: Alert and Oriented x 3, NL Sensation, NL Muscle Strength and Tone , - - CN II-XII intact. - Nutrition: Malnutrition Diagnosis/Plan Malnutrition Assessment by Registered Dietitian: Malnutrition Assessment Clinical Characteristics Severe,Environmental Malnutrition Assessment: Muscle Wasting - Temporal (severe) Criteria Inadequate Oral Intake - Pt reports a good appetite, though states his intake is limited while residing in a homeless [facility] and utilizing food stamps to obtain food; consumed 100% L today - Anticipate meeting <75% nutrient needs >3 mos (moderate) Unintentional Weight Loss - Pt reports unintentional wt loss x3 mos; current wt 127lb, UBW 140lb - 9.2% loss x3 mos (severe) Underweight - BMI 17.2 (notable) Malnutrition Assessment: Nutritional Supplementals/Nourishments - Will Interventions send Ensure Enlive (350kcal, 20g prot/serv) at B , L, and D daily, in addition to Fruited Yogurt (120kcal, 8g prot/serv) and Cheddar Cheese ( 120kcal, 7g prot/serv) at 10:00 and 15:00 daily , to optimize kcal/prot intake; will monitor continued acceptance. Additionally, encouraged pt to discuss barriers to adequate nutrition w/ CM/SW; pt receptive Textures Modifications - Encouraged pt to request modified textures as desired; pt receptive; will monitor tolerance and make further recommendations as indicated Glycemic Control - Dietary restriction not indicated at this time; will continue to monitor BG/FS in the setting of steroid med use Malnutrition Assessment: Goals 1) Pt will tolerate least restrictive dietary textures w/o difficulty chewing 2) Adequate po intake to replete lean body mass , support wt gain and hydration status 3) Maintain fluid/electrolyte balance w/ adequate po intake 4) Maintain glycemic control w/ adequate po intake w/o need for dietary restriction in the setting of steroid med use 5) Maintain bowel regularity w/ adequate po intake w/o development of diarrhea/constipation Result Diagrams: 10/19/19 06:55 10/20/19 06:10 Additional Lab and Data: Laboratory Results - last 24 hr Microbiology and Other Data: Microbiology 10/16/19 16:30 Gram Stain - Final Sputum Sputum Culture - Preliminary Pseudomonas Aeruginosa 10/16/19 00:00 Aerobic Blood Culture - Preliminary Blood Venous No Growth Day 2 Anaerobic Blood Culture - Preliminary No Growth Day 2 10/16/19 00:00 Aerobic Blood Culture - Preliminary Blood Venous No Growth Day 2 Anaerobic Blood Culture - Preliminary No Growth Day 2 10/15/19 23:55 Urine Culture - Final Urine No Growth (<1,000 CFU/mL) 10/16/19 01:00 Legionella Urinary Antigen - Final Urine Negative Legionella Antigen Streptococcus pneumoniae Ag Screen - Final Negative S. pneumo Antigen Assess/Plan/Problems-Billing Assessment: Patient is a 59yo male with a PMH for COPD with chronic hypoxic respiratory failure, Squamous Cell Lung Cancer S/P lobectomy, here with worsening SOB, found to have COPD exacerbation, improving on treatment. - Patient Problems (1) COPD with exacerbation Current Visit: No Status: Acute Code(s): J44.1 - CHRONIC OBSTRUCTIVE PULMONARY DISEASE W (ACUTE) EXACERBATION SNOMED Code(s): 421100064 Comment: - Slowly improving - Continue duonebs, prednisone and cefepi,e - Chronic triple inhaler therapy. - Goal O2 88-92% - On 4L at this time, will still attempt to wean - Colonization with Pseudomonas likeyl contributing to Exacerbation - Continue for 7 day course of antipseudomonal antibiotics (Started on ) (2) Chest pain Current Visit: Yes Status: Acute Code(s): R07.9 - CHEST PAIN, UNSPECIFIED SNOMED Code(s): 51057761 Comment: - Extertional, resolved with rest - Associated with slightly increased trop. - Patient has known severe pHTN - Could be related to RV strain - Patient has risk factors, YOHANA score of 3. - Nuclear Stress test tomorrow for risk stratification. (3) PHT (pulmonary hypertension) Current Visit: Yes Status: Acute Code(s): I27.20 - PULMONARY HYPERTENSION, UNSPECIFIED SNOMED Code(s): 43244472 Comment: - Reports he only wears his supplemental oxygen approx 2 to 3 hrs a day when he is suppose to be wearing it 24 hrs. Reports this is bc his concentrator is in his bedroom and he does not have tanks. Will discuss with SW to get portable concentrator - Likely from chronic hypoxia and oxygen non-compliance - Severe, with RV strain on echo - Would recommend continuous O2 (4) Shortness of breath Current Visit: No Status: Acute Priority: High Onset Date: 06/04/14 Code (s): R06.02 - SHORTNESS OF BREATH SNOMED Code(s): 308973118 Comment: - Greatly improved today - Likely related to COPD exacerbation and possibly severe pHTN (5) Abnormal morphology of platelets Current Visit: No Status: Acute Code(s): R79.89 - OTHER SPECIFIED ABNORMAL FINDINGS OF BLOOD CHEMISTRY SNOMED Code(s): 204931663 Comment: - Recurrent platelet clumping on CBC - Unclear significance, normal number with citrated tube - No history of thrombosis. (6) Tobacco abuse counseling Current Visit: No Status: Acute Code(s): Z71.6 - TOBACCO ABUSE COUNSELING SNOMED Code(s): 535823766 Comment: - Discussed importance of quitting - Would benefit from total abstinence. (7) DVT prophylaxis Current Visit: No Status: Acute Code(s): DCX2818 - SNOMED Code(s): 121458124 Comment: - Lovenox (8) Full code status Current Visit: No Status: Acute Code(s): Z78.9 - OTHER SPECIFIED HEALTH STATUS SNOMED Code(s): 594579001 Status and Disposition: Inpatient with COPD Exacerbation, hopeful D/C tomorrow.
[2019-10-20 13:32] LABS: Troponin I 0.03 ng/mL (<0.03)
[2019-10-20 13:46] LABS: Cholesterol 123 mg/dL; HDL Cholesterol 53.3 mg/dL; LDL Cholesterol 59 mg/dL; Triglycerides 55 mg/dL
[2019-10-20] MEDS: Nicotine Patch Removal NOTE FOLLOW UP SCH (19:55)
[2019-10-21] MEDS ORDERED: Ibuprofen TAB* 600 MG PO ONE (06:14)
[2019-10-21] MEDS ORDERED: Ibuprofen TAB* 600 MG ONE (06:18)
[2019-10-21] MEDS: Cefepime 2 GM in Dextrose(*) 2 GM/50 ML BAG IV SCH ×2 (06:19→17:35)
[2019-10-21 06:29] LABS: BUN/Creatinine Ratio 33.3 (8-20); Blood Urea Nitrogen 17 mg/dL (6-24); Calcium 8.9 mg/dL (8.6-10.3); Chloride 95 mmol/L (101-111); EGFR African American 199.9 (>60); EGFR Non-African American 165.2 (>60); Glucose 89 mg/dL (70-100); Hematocrit 35 % (42-52); Hemoglobin 12.2 g/dL (14.0-18.0); Magnesium 1.3 mg/dL (1.9-2.7); Mean Corpuscular HGB Conc 35 g/dL (31-36); Mean Corpuscular Hemoglobin 33 pg (27-31); Mean Corpuscular Volume 96 fL (80-94); Potassium 4.6 mmol/L (3.5-5.0); Red Blood Count 3.67 10^6 /uL (4.18-5.48); Red Cell Distribution Width 15 % (10-15); Sodium 138 mmol/L (135-145); White Blood Count 6.5 10^3/uL (3.5-10.8)
[2019-10-21 06:34] LABS: Anion Gap 2 mmol/L (2-11); CO2 Carbon Dioxide 41 mmol/L (22-32)
[2019-10-21 06:45] LABS: Troponin I 0.03 ng/mL (<0.03)
[2019-10-21 07:01] LABS: Platelet Count Platelets clumped. 10^3/uL (150-450)
[2019-10-21 07:02] LABS: ABS Lymphocytes 1.3 10^3/ul (1.0-4.8); ABS Monocytes 0.8 10^3/ul (0-0.8); ABS Neutrophils 4.3 10^3/ul (1.5-7.7); Eosinophil % 0.5 %; Lymphocyte % 20.5 %; Nucleated Red Blood Cells % 0.1
[2019-10-21] MEDS: Enoxaparin(*) 40 MG/0.4 ML SYR SUBCUT SCH (07:49)
[2019-10-21] MEDS: Mometasone/Formoter 200/5 MDI INH SCH ×2 (08:19→19:26)
[2019-10-21] MEDS: Acetaminophen TAB* 325 MG PO PRN (08:25)
[2019-10-21] MEDS ORDERED: Magnesium Sulfate IV* 3 GM in NS 0.9% 100 ML* 100 ML IVPB ONE (08:50)
[2019-10-21] MEDS ORDERED: Magnesium Sulf 4 GM/100 ML IV* 4,000 MG/100 ML BAG IVPB ONE (08:50)
[2019-10-21] MEDS ORDERED: Regadenoson* 0.4 MG/5 ML SYRINGE ONE (09:30)
[2019-10-21] MEDS ORDERED: Aminophylline IV* 25 MG/ML 10 ML VIAL ONE (09:30)
[2019-10-21] MEDS: Magnesium Oxide TAB* 400 MG PO SCH ×2 (11:12→20:31)
[2019-10-21] MEDS: Calcium Carbonate CHEW TAB* 500 MG (TUMS) PO SCH ×4 (11:12→20:32)
[2019-10-21] MEDS: Aspirin EC TAB* 81 MG TAB.EC PO SCH (11:12)
[2019-10-21] MEDS: Nicotine PATCH 14 MG/24 HR* PATCH TRANSDERM SCH (11:15)
[2019-10-21] MEDS: Witch Hazel PAD* JAR TOPICAL SCH (11:15)
--- NOTE | 2019-10-21 13:22 | PN ---
Subjective Date of Service: 10/21/19 Interval History: Mr. Graves states he is feeling and breathing "alright." He reports SB with exertion and requiring O2 for walking, although he is noted to be on O2 at rest , as well. He reports that he continues to have some coughing, although this is much improved. No wheezing. Reports CP at admission and for appx 3 days following, but none in last 3 days. No other complaints today. Family History: Unchanged from Admission Social History: Unchanged from Admission Past Medical History: Unchanged from Admission Objective Active Medications: Acetaminophen (Tylenol Tab*) 650 mg PO Q4H PRN PRN Reason: PAIN - MILD Last Admin: 10/21/19 08:25 Dose: 650 mg Al Hydrox/Mg Hydrox/Simethicone (Maalox Plus*) 30 ml PO Q6H PRN PRN Reason: INDIGESTION Last Admin: 10/19/19 23:29 Dose: 30 ml Albuterol (Ventolin 2.5 Mg/3 Ml Neb.Josefa*) 2.5 mg INH Q2H PRN PRN Reason: SOB/WHEEZING Albuterol/Ipratropium (Duoneb (Albuterol 2.5 Mg/Ipratropium 0.5 Mg)) 1 neb INH Q4H PRN PRN Reason: SOB/WHEEZING Aspirin (Aspirin Ec Tab*) 81 mg PO DAILY [facility] Last Admin: 10/21/19 11:12 Dose: 81 mg Calcium Carbonate (Tums*) 1,000 mg PO QID [facility] Last Admin: 10/21/19 13:09 Dose: Not Given Enoxaparin Sodium (Lovenox(*)) 40 mg SUBCUT Q24H [facility] Last Admin: 10/21/19 07:49 Dose: 40 mg Cefepime HCl (Maxipime 2 Gm In Dextrose Duplex (*)) 2 gm in 50 mls @ 100 mls/ hr IV Q12H [facility] Last Admin: 10/21/19 06:19 Dose: 100 mls/hr Magnesium Oxide (Magox 400 Tab*) 400 mg PO BID [facility] Last Admin: 10/21/19 11:12 Dose: 400 mg Mometasone Furoate/Formoterol Fumar (Dulera 200/5 Mdi*) 2 puff INH BID [facility] Last Admin: 10/21/19 08:19 Dose: 2 puff Nicotine (Nicotine Patch 14 Mg/24 Hr*) 1 patch TRANSDERM DAILY [facility] Last Admin: 10/21/19 11:15 Dose: Not Given Pharmacy Profile Note (Nicotine Patch Removal Note*) 1 note FOLLOW UP 2100 [facility] Last Admin: 10/20/19 19:55 Dose: Not Given Prednisone (Deltasone 20 Mg Tab) 40 mg PO DAILY [facility] Last Admin: 10/21/19 11:11 Dose: 40 mg Prochlorperazine Edisylate (Compazine Inj*) 10 mg IV Q6H PRN PRN Reason: NAUSEA/VOMITING Throat Lozenges (Chloraseptic Nasrin*) 1 nasrin MT Q6H PRN PRN Reason: SORE THROAT Last Admin: 10/16/19 15:19 Dose: 1 nasrin Witch Tamika (Tucks*) 1 pad TOPICAL DAILY [facility] Last Admin: 10/21/19 11:15 Dose: 1 pad Vital Signs: Temp Pulse Resp BP Pulse Ox 97.4 F 69 20 107/67 99 10/21/19 10:57 10/21/19 10:57 10/21/19 10:57 10/21/19 10:57 10/21/19 10:57 Oxygen Devices in Use Now: Nasal Cannula Appearance: Mr. Graves is a cachectic-appearing middle-aged white male who is sitting up in bed. He is breathing comfortably on supplemental oxygen and appears to be in no acute distress. Eyes: No Scleral Icterus, PERRLA Ears/Nose/Mouth/Throat: NL Teeth, Lips, Gums, Clear Oropharnyx, Mucous Membranes Moist Neck: NL Appearance and Movements; NL JVP, Trachea Midline Respiratory: Symmetrical Chest Expansion and Respiratory Effort, - - diminished breath sounds thoughout without wheeze, rales, rhonchi Cardiovascular: NL Sounds; No Murmurs; No JVD, RRR Abdominal: NL Sounds; No Tenderness; No Distention, No Hepatosplenomegaly Extremities: - - b/l LE 2+ pitting edema Neurological: Alert and Oriented x 3 - Nutrition: Malnutrition Diagnosis/Plan Malnutrition Assessment by Registered Dietitian: Malnutrition Assessment Clinical Characteristics Severe,Environmental Malnutrition Assessment: Muscle Wasting - Temporal (severe) Criteria Inadequate Oral Intake - Pt reports a good appetite, though states his intake is limited while residing in a homeless fpc and utilizing food stamps to obtain food; consumed 100% L today - Anticipate meeting <75% nutrient needs >3 mos (moderate) Unintentional Weight Loss - Pt reports unintentional wt loss x3 mos; current wt 127lb, UBW 140lb - 9.2% loss x3 mos (severe) Underweight - BMI 17.2 (notable) Malnutrition Assessment: Nutritional Supplementals/Nourishments - Will Interventions send Ensure Enlive (350kcal, 20g prot/serv) at B , L, and D daily, in addition to Fruited Yogurt (120kcal, 8g prot/serv) and Cheddar Cheese ( 120kcal, 7g prot/serv) at 10:00 and 15:00 daily , to optimize kcal/prot intake; will monitor continued acceptance. Additionally, encouraged pt to discuss barriers to adequate nutrition w/ CM/SW; pt receptive Textures Modifications - Encouraged pt to request modified textures as desired; pt receptive; will monitor tolerance and make further recommendations as indicated Glycemic Control - Dietary restriction not indicated at this time; will continue to monitor BG/FS in the setting of steroid med use Malnutrition Assessment: Goals 1) Pt will tolerate least restrictive dietary textures w/o difficulty chewing 2) Adequate po intake to replete lean body mass , support wt gain and hydration status 3) Maintain fluid/electrolyte balance w/ adequate po intake 4) Maintain glycemic control w/ adequate po intake w/o need for dietary restriction in the setting of steroid med use 5) Maintain bowel regularity w/ adequate po intake w/o development of diarrhea/constipation Result Diagrams: 10/21/19 05:48 10/21/19 05:48 Additional Lab and Data: Laboratory Results - last 24 hr Microbiology and Other Data: Microbiology 10/16/19 16:30 Gram Stain - Final Sputum Sputum Culture - Preliminary Pseudomonas Aeruginosa 10/16/19 00:00 Aerobic Blood Culture - Preliminary Blood Venous No Growth Day 2 Anaerobic Blood Culture - Preliminary No Growth Day 2 10/16/19 00:00 Aerobic Blood Culture - Preliminary Blood Venous No Growth Day 2 Anaerobic Blood Culture - Preliminary No Growth Day 2 10/15/19 23:55 Urine Culture - Final Urine No Growth (<1,000 CFU/mL) 10/16/19 01:00 Legionella Urinary Antigen - Final Urine Negative Legionella Antigen Streptococcus pneumoniae Ag Screen - Final Negative S. pneumo Antigen Assess/Plan/Problems-Billing Assessment: Patient is a 59yo male with a PMH for COPD with chronic hypoxic respiratory failure, Squamous Cell Lung Cancer S/P lobectomy, here with worsening SOB, found to have COPD exacerbation, improving on treatment. Patient with elevated trops, abnormality on EKG; ST indeterminate with fixed septal defect and global hypokinesis. - Patient Problems (1) COPD with exacerbation Comment: -slowly improving, although CO2 increasing -continue duonebs, prednisone, cefepime -chronic triple inhaler therapy -goal O2 88-92% -on 3L at this time, will still attempt to wean -colonization with Pseudomonas likely contributing to exacerbation -continue for 7 day course of antipseudomonal antibiotics (started on ) (2) Diastolic heart failure Comment: -Echo EF 55-60% with grade 1 diastolic dysfunction -appears to have mild exacerbation with LE edema -may be contributing to dyspnea -Lasix 20 IV now and monitor for improvement (3) Chest pain Comment: -extertional, resolved with rest -reports no CP in last 3 days -associated with slightly increased trop -patient has known severe pHTN -could be related to RV strain -patient has risk factors, YOHANA score of 3 -shows intermediate risk due to fixed septal defect -cardiology consulted; pending (4) Shortness of breath Comment: -continues to improve, although still requiring supplemental O2 -likely related to COPD exacerbation and possibly severe pHTN (5) PHT (pulmonary hypertension) Comment: -reports he only wears his supplemental oxygen approx 2 to 3 hrs a day when he is suppose to be wearing it 24 hrs. Reports this is bc his concentrator is in his bedroom and he does not have tanks. Will discuss with SW to get portable concentrator - Likely from chronic hypoxia and oxygen non-compliance - Severe, with RV strain on echo - Would recommend continuous O2 (6) Abnormal morphology of platelets Comment: -recurrent platelet clumping on CBC -unclear significance, normal number with citrated tube -no history of thrombosis (7) Tobacco abuse counseling Comment: -discussed importance of quitting -would benefit from total abstinence -declining gum, patches (8) DVT prophylaxis Comment: -lovenox SQ (9) Full code status Status and Disposition: Inpatient with COPD exacerbation, abnormal stress test. Discharge when medically stable.
[2019-10-21] MEDS ORDERED: Furosemide IV* 10 MG/ML 2 ML VIAL (20 MG) IV ONE (14:17)
[2019-10-21] MEDS: Nicotine Patch Removal NOTE FOLLOW UP SCH (19:16)
--- NOTE | 2019-10-21 19:42 | CONS ---
CARDIOLOGY CONSULTATION REPORT: DATE OF CONSULT: 10/21/19 INDICATIONS FOR CONSULT: Chest pain, abnormal stress test. HISTORY OF PRESENT ILLNESS: The patient is a 59-year-old gentleman with a history of severe COPD, history of smoking, history of known pulmonary hypertension, who came to the emergency room because of shortness of breath. The patient states that he has just been not feeling well, difficulty walking even around his house that has been much harder than it had been in the past. The patient has chronic shortness of breath, he is on chronic oxygen. On arrival to the hospital, his EKG showed normal sinus rhythm with a right bundle branch block, left anterior fascicular block, unchanged from previous EKGs. His initial troponin level was 0.03 and it remained at 0.03 for 4 more testings. The patient underwent a chemical nuclear stress test today. His nuclear images show a fixed defect in his septal wall, possibly consistent with an old myocardial infarction. However, on his wall motion abnormality on his nuclear images, the septal wall moves normally and on his echocardiogram, he had normal function of his septal wall. He had ejection fraction of 60%. Also on his echocardiogram, the patient had a large dilated right ventricle with severe right ventricular hypokinesis and [id number] pulmonary hypertension. In speaking with the patient today, he is actually feeling much better. He has been getting treatments for his COPD over the weekend. He has continued to wear his 2 L of oxygen. PAST MEDICAL HISTORY: Significant for: 1. COPD. 2. Squamous lung cancer, status post left upper lobe resection. 3. Arthralgia. 4. Tobacco use. OUTPATIENT MEDICATIONS: 1. Spiriva inhaler. 2. Dulera inhaler. 3. Albuterol as needed. 4. Ventolin as needed. ALLERGIES: No known drug allergies. FAMILY HISTORY: Unknown. SOCIAL HISTORY: The patient continues to smoke about a half-a-pack of cigarettes a day. He denies alcohol intake. He denies any regular exercise. REVIEW OF SYSTEMS: Positive for shortness of breath. Negative for change in weight. Negative for changes in bowel or bladder habits. PHYSICAL EXAM: Height is 6 feet, weight is 127 pounds, temperature 98.2, heart rate is 70, blood pressure 118/65, respiratory rate is 17, oxygen saturation 99 % on 3 L. Sclerae anicteric. Oropharynx is pink without erythema. Carotids are 2+ without bruits. JVD is normal. Thyroid is normal. Cardiac: S1, S2 without any murmurs, rubs, or gallops. PMI is normal. Lungs have markedly decreased breath sounds There are no rhonchi. There are no rales on exam. Abdomen: Soft, nontender, nondistended with normoactive bowel sounds. Extremities: Show no edema. He is extremely thin with very little muscle mass. There are diminished pulses in the dorsalis pedis and popliteal. The patient is awake, alert and oriented. He moves all 4 extremities equally. DIAGNOSTIC STUDIES/LAB DATA: Chemistries within normal limits. BUN 17, creatinine 0.5, total cholesterol 123, LDL cholesterol 59. CBC within normal limits. IMPRESSION: This is a 59-year-old gentleman who is admitted to the hospital with chronic obstructive pulmonary disease exacerbation. His troponin levels show minimally elevated at 0.03. His echocardiogram shows normal LV size and systolic function. His right ventricle is dilated and hypokinetic consistent with severe pulmonary hypertension. There is moderate tricuspid regurgitation. No other significant valvular abnormalities. At this point, I think the patient's major concern is his pulmonary issues. The patient has chronic obstructive pulmonary disease and severe pulmonary hypertension. At this point, I do not think his stress test is consistent with significant coronary artery disease. I think his septal fixed defect on his nuclear images are due to artifact and his large right ventricle and not due to myocardial infarction. RECOMMENDATIONS: For now, my recommendation is to continue his treatment for his COPD. The patient should continue with his Lasix. He should stay on the dry side for his pulmonary hypertension. No other cardiac evaluation is necessary at this time. [id number]/[facility] #: [id number] [facility]
[2019-10-22] MEDS: Acetaminophen TAB* 325 MG PO PRN ×3 (04:04→20:06)
[2019-10-22] MEDS: Cefepime 2 GM in Dextrose(*) 2 GM/50 ML BAG IV SCH (05:18)
[2019-10-22 07:19] LABS: Blood Urea Nitrogen 27 mg/dL (6-24); Calcium 9.1 mg/dL (8.6-10.3); Chloride 95 mmol/L (101-111); EGFR African American 136.5 (>60); EGFR Non-African American 112.8 (>60); Glucose 86 mg/dL (70-100); Potassium 4.7 mmol/L (3.5-5.0); Sodium 137 mmol/L (135-145)
[2019-10-22 07:33] LABS: CO2 Carbon Dioxide 42 mmol/L (22-32)
[2019-10-22] MEDS: Mometasone/Formoter 200/5 MDI INH SCH ×2 (07:41→20:04)
[2019-10-22] MEDS ORDERED: Ibuprofen TAB* 400 MG PO PRN (09:15)
[2019-10-22] MEDS: Aspirin EC TAB* 81 MG TAB.EC PO SCH (09:24)
[2019-10-22] MEDS: Magnesium Oxide TAB* 400 MG PO SCH ×2 (09:24→20:00)
[2019-10-22] MEDS: Enoxaparin(*) 40 MG/0.4 ML SYR SUBCUT SCH (09:25)
[2019-10-22] MEDS: Calcium Carbonate CHEW TAB* 500 MG (TUMS) PO SCH ×4 (09:25→20:00)
[2019-10-22] MEDS: Nicotine PATCH 14 MG/24 HR* PATCH TRANSDERM SCH (09:25)
[2019-10-22] MEDS: Witch Hazel PAD* JAR TOPICAL SCH (09:26)
--- NOTE | 2019-10-22 15:14 | PN ---
Subjective Date of Service: 10/22/19 Interval History: Mr. Graves continues to c/o MOREL. He has a nonproductive cough. He is unsure if he is wheezing or SOB at rest. He denies CP. He has no other complaints today, but is notably eager to be discharged home. Family History: Unchanged from Admission Social History: Unchanged from Admission Past Medical History: Unchanged from Admission Objective Active Medications: Acetaminophen (Tylenol Tab*) 650 mg PO Q4H PRN PRN Reason: PAIN - MILD Last Admin: 10/22/19 09:24 Dose: 650 mg Al Hydrox/Mg Hydrox/Simethicone (Maalox Plus*) 30 ml PO Q6H PRN PRN Reason: INDIGESTION Last Admin: 10/19/19 23:29 Dose: 30 ml Albuterol (Ventolin 2.5 Mg/3 Ml Neb.Josefa*) 2.5 mg INH Q2H PRN PRN Reason: SOB/WHEEZING Albuterol/Ipratropium (Duoneb (Albuterol 2.5 Mg/Ipratropium 0.5 Mg)) 1 neb INH Q4H PRN PRN Reason: SOB/WHEEZING Aspirin (Aspirin Ec Tab*) 81 mg PO DAILY [facility] Last Admin: 10/22/19 09:24 Dose: 81 mg Calcium Carbonate (Tums*) 1,000 mg PO QID [facility] Last Admin: 10/22/19 13:24 Dose: 1,000 mg Enoxaparin Sodium (Lovenox(*)) 40 mg SUBCUT Q24H [facility] Last Admin: 10/22/19 09:25 Dose: 40 mg Cefepime HCl (Maxipime 2 Gm In Dextrose Duplex (*)) 2 gm in 50 mls @ 100 mls/ hr IV Q12H [facility] Last Admin: 10/22/19 05:18 Dose: 100 mls/hr Ibuprofen (Motrin Tab*) 400 mg PO Q6H PRN PRN Reason: mild to moderate pain Magnesium Oxide (Magox 400 Tab*) 400 mg PO BID [facility] Last Admin: 10/22/19 09:24 Dose: 400 mg Mometasone Furoate/Formoterol Fumar (Dulera 200/5 Mdi*) 2 puff INH BID [facility] Last Admin: 10/22/19 07:41 Dose: 2 puff Nicotine (Nicotine Patch 14 Mg/24 Hr*) 1 patch TRANSDERM DAILY [facility] Last Admin: 10/22/19 09:25 Dose: Not Given Pharmacy Profile Note (Nicotine Patch Removal Note*) 1 note FOLLOW UP 2100 [facility] Last Admin: 10/21/19 19:16 Dose: Not Given Prednisone (Deltasone 20 Mg Tab) 40 mg PO DAILY [facility] Last Admin: 10/22/19 09:24 Dose: 40 mg Prochlorperazine Edisylate (Compazine Inj*) 10 mg IV Q6H PRN PRN Reason: NAUSEA/VOMITING Throat Lozenges (Chloraseptic Nasrin*) 1 nasrin MT Q6H PRN PRN Reason: SORE THROAT Last Admin: 10/16/19 15:19 Dose: 1 nasrin Witch Tamika (Tucks*) 1 pad TOPICAL DAILY [facility] Last Admin: 10/22/19 09:26 Dose: 1 pad Vital Signs: Temp Pulse Resp BP Pulse Ox 97.6 F 90 20 104/68 100 10/22/19 11:30 10/22/19 11:30 10/22/19 11:30 10/22/19 11:30 10/22/19 11:30 Oxygen Devices in Use Now: Nasal Cannula Appearance: Mr. Graves is a cachectic-appearing, middle-age white male who is seen standing in his room; he appears older than stated age and chronically ill. He has mild increased work of breathing on supplemental O2. Eyes: No Scleral Icterus, PERRLA Ears/Nose/Mouth/Throat: NL Teeth, Lips, Gums, Clear Oropharnyx, Mucous Membranes Moist, - - edentulous Neck: NL Appearance and Movements; NL JVP, Trachea Midline Respiratory: Symmetrical Chest Expansion and Respiratory Effort, - - diminished breath sounds b/l without wheeze, rales, rhonchi Cardiovascular: NL Sounds; No Murmurs; No JVD, RRR, - - 2+ b/l LE pitting edema Abdominal: NL Sounds; No Tenderness; No Distention, No Hepatosplenomegaly Extremities: No Edema, - - digital clubbing Neurological: Alert and Oriented x 3 - Nutrition: Malnutrition Diagnosis/Plan Malnutrition Assessment by Registered Dietitian: Malnutrition Assessment Clinical Characteristics Severe,Environmental Malnutrition Assessment: Muscle Wasting - Temporal (severe) Criteria Inadequate Oral Intake - Pt reports a good appetite, though states his intake is limited while residing in a homeless long term and utilizing food stamps to obtain food; consumed 100% L today - Anticipate meeting <75% nutrient needs >3 mos (moderate) Unintentional Weight Loss - Pt reports unintentional wt loss x3 mos; current wt 127lb, UBW 140lb - 9.2% loss x3 mos (severe) Underweight - BMI 17.2 (notable) Malnutrition Assessment: Nutritional Supplementals/Nourishments - Will Interventions send Ensure Enlive (350kcal, 20g prot/serv) at B , L, and D daily, in addition to Fruited Yogurt (120kcal, 8g prot/serv) and Cheddar Cheese ( 120kcal, 7g prot/serv) at 10:00 and 15:00 daily , to optimize kcal/prot intake; will monitor continued acceptance. Additionally, encouraged pt to discuss barriers to adequate nutrition w/ CM/SW; pt receptive Textures Modifications - Encouraged pt to request modified textures as desired; pt receptive; will monitor tolerance and make further recommendations as indicated Glycemic Control - Dietary restriction not indicated at this time; will continue to monitor BG/FS in the setting of steroid med use Malnutrition Assessment: Goals 1) Pt will tolerate least restrictive dietary textures w/o difficulty chewing 2) Adequate po intake to replete lean body mass , support wt gain and hydration status 3) Maintain fluid/electrolyte balance w/ adequate po intake 4) Maintain glycemic control w/ adequate po intake w/o need for dietary restriction in the setting of steroid med use 5) Maintain bowel regularity w/ adequate po intake w/o development of diarrhea/constipation Result Diagrams: 10/21/19 05:48 10/22/19 06:47 Additional Lab and Data: Laboratory Results - last 24 hr Microbiology and Other Data: Microbiology 10/16/19 16:30 Gram Stain - Final Sputum Sputum Culture - Preliminary Pseudomonas Aeruginosa 10/16/19 00:00 Aerobic Blood Culture - Preliminary Blood Venous No Growth Day 2 Anaerobic Blood Culture - Preliminary No Growth Day 2 10/16/19 00:00 Aerobic Blood Culture - Preliminary Blood Venous No Growth Day 2 Anaerobic Blood Culture - Preliminary No Growth Day 2 10/15/19 23:55 Urine Culture - Final Urine No Growth (<1,000 CFU/mL) 10/16/19 01:00 Legionella Urinary Antigen - Final Urine Negative Legionella Antigen Streptococcus pneumoniae Ag Screen - Final Negative S. pneumo Antigen Assess/Plan/Problems-Billing Assessment: Patient is a 59yo male with a PMH for COPD with chronic hypoxic respiratory failure, Squamous Cell Lung Cancer S/P lobectomy, here with worsening SOB, found to have COPD exacerbation, improving on treatment. Patient with elevated trops, abnormality on EKG; ST indeterminate with fixed septal defect and global hypokinesis. - Patient Problems (1) COPD with exacerbation Comment: -slowly improving, although CO2 increasing daily -continue duonebs, cefepime -continue prednisone; taper down by 20 q5d -chronic triple inhaler therapy -goal O2 88-92% -on 3L at this time -colonization with Pseudomonas likely contributing to exacerbation -continue for 7 day course of antipseudomonal antibiotics (started on ) -pulmonology consulted for further recommendations, elevated CO2 -add on Diamox x3d (2) Diastolic heart failure Comment: -Echo EF 55-60% with grade 1 diastolic dysfunction -appears to have mild exacerbation with LE edema -may be contributing to dyspnea -improved with diuresis; will continue IV lasix and transition to PO at discharge (3) Chest pain Comment: -extertional, resolved with rest -reports no CP in last 3 days -associated with slightly increased trop -patient has known severe pHTN -could be related to RV strain -patient has risk factors, YOHANA score of 3 -shows intermediate risk due to fixed septal defect -cardiology consulted; thank you for recommendations; no other cardiac eval necessary at this time -will discharge with IV diuretics (4) Shortness of breath Comment: -continues to improve, although still requiring supplemental O2 -likely related to COPD exacerbation and possibly severe pHTN (5) PHT (pulmonary hypertension) Comment: -reports he only wears his supplemental oxygen approx 2 to 3 hrs a day when he is suppose to be wearing it 24 hrs. Reports this is bc his concentrator is in his bedroom and he does not have tanks. Will discuss with SW to get portable concentrator -likely from chronic hypoxia and oxygen non-compliance -severe, with RV strain on echo -would recommend continuous O2 (6) Abnormal morphology of platelets Comment: -recurrent platelet clumping on CBC -unclear significance, normal number with citrated tube -no history of thrombosis (7) Tobacco abuse counseling Comment: -discussed importance of quitting -would benefit from total abstinence -declining gum, patches (8) DVT prophylaxis Comment: -lovenox SQ (9) Full code status Status and Disposition: Inpatient with COPD exacerbation, abnormal stress test. Discharge when medically stable.
[2019-10-22] MEDS ORDERED: Furosemide IV* 10 MG/ML VIAL (40 MG) IV ONE (15:16)
[2019-10-22 15:56] LABS: Magnesium 1.5 mg/dL (1.9-2.7)
[2019-10-22] MEDS ORDERED: Piperacillin/Tazobac ADVAN(*) 3.375 GM in NS 0.9% 100 ML* 100 ML IVPB ONE (16:00)
[2019-10-22] MEDS ORDERED: Zosyn per Pharmacy* NOTE FOLLOW UP SCH (16:00)
[2019-10-22] MEDS ORDERED: Magnesium Sulf 4 GM/100 ML IV* 4,000 MG/100 ML BAG IVPB ONE (16:03)
--- NOTE | 2019-10-22 17:08 | CONS ---
PULMONARY CONSULTATION REPORT: DATE OF CONSULT: 10/22/19 CONSULTATION REQUESTED BY: ANTONIO Kinney REASON FOR CONSULTATION: Evaluation of hypoxemic respiratory failure and elevated bicarb. HISTORY OF PRESENT ILLNESS: The patient is a 59-year-old male with a history of COPD; squamous cell carcinoma of the left upper lobe, status post resection; arthralgias; the patient still continues to smoke. The patient presented to the hospital for evaluation of worsening shortness of breath. The patient reported gradually worsening shortness of breath over the past 2 weeks prior to admission. The patient also reported cough productive of green phlegm. His symptoms have not improved and he was getting more dyspneic with minimal exertion and decided to come into the emergency room for further evaluation. The patient reports that he has dyspnea on exertion at baseline and intermittent cough that has worsened recently. 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 He has previously diagnosed COPD and has been on Dulera and Spiriva. He also has oxygen at home, does not have portable oxygen. He tries to use oxygen daily; however, at night, he reports that oxygen tubing displaces and might not have oxygen for more than 2 to 3 hours. The patient still continues to smoke. Denied any chest pain on presentation. He was found to have elevated troponins. Denied fevers or chills. No weight loss or loss of appetite. Denies lower extremity swelling. Denies urinary complaints. The patient was admitted for management of possible COPD and CHF exacerbation. Further evaluation included labs, sputum cultures, and CT of the chest. The patient noted to have Pseudomonas in the sputum. He was not found to have elevated white count. He has evidence of anemia which appears to be macrocytic. He was noted to have normal to slightly elevated bicarb on admission, bicarb has been increasing steadily and is at 42 today. Troponins elevation has stabilized. Influenza testing has been negative. I have personally reviewed CT of the chest. The patient with evidence of interstitial prominence in the right lung which is unchanged from before. Postsurgical changes in the left lung noted. The patient also with volume loss on the left side. The patient with evidence of scarring and atelectasis in the left base. Mild amount of atelectasis also seen at the right base. The patient also with evidence of emphysematous changes on the left side. The patient with evidence of interstitial prominence. He does have evidence of scarring that appears to be chronic in right middle lobe. The patient also with prominence of pulmonary artery concerning for possible pulmonary hypertension. PAST MEDICAL HISTORY: 1. COPD. 2. Squamous cell carcinoma. 3. Arthralgias. 4. Tobacco abuse. PAST SURGICAL HISTORY: Left upper lobectomy. MEDICATIONS: 1. Spiriva. 2. Dulera. 3. Ibuprofen. 4. Albuterol. 5. Ventolin. ALLERGIES: No known drug allergies. FAMILY HISTORY: Noncontributory, was reviewed. SOCIAL HISTORY: Smokes about half a pack a day, smoking for about 45 years. Denies alcohol or drug abuse. REVIEW OF SYSTEMS: All 12 systems reviewed and as per HPI. PHYSICAL EXAM: The patient in bed, in no apparent distress. Vital Signs: Temperature 97.6, pulse 90 beats per minute, respiratory rate 20 per minute, O2 sat 100% on 3 L, blood pressure 104/68. HEENT: PERRLA, no JVD Lungs: wheezing on the left side. CVS: S1, S2+ Abd: Soft, BS+ Ext: Normal ROM Neuro: No focal deficits DIAGNOSTIC STUDIES/LAB DATA: WBC count 6.5, hemoglobin 12.2, hematocrit 35, platelet 251. VBG showed pH of 7.39, pCO2 of 50, pO2 of 47 with O2 sat of 80%. Sodium 137, potassium 4.7, chloride 95, bicarb 42, BUN 27, creatinine 0.71. Troponins elevated at 0.03. Influenza A and B negative. Sputum cultures positive for Pseudomonas aeruginosa, resistant to cephazolin, sensitive to cefepime, ciprofloxacin, levofloxacin, meropenem, and Zosyn. CT of the chest as described above in HPI. IMPRESSION AND RECOMMENDATIONS: 59-year-old male with history of chronic obstructive pulmonary disease with significant smoking history, still continues to smoke, admitted with worsening shortness of breath, found to have new changes on the CT scan concerning for pneumonia. Sputum cultures positive for Pseudomonas. The patient appears to be having mild wheezing on auscultation on the left lung. The patient also with acute chronic obstructive pulmonary disease exacerbation. Bicarbonate slightly increasing, which could be still from the persistent tightness. The patient also appears to be mildly dehydrated since admission, which could also be contributing. He is to receive diuretics. Will add acetazolamide b.i.d. for 3 days to help with hypercapnia. The patient would benefit from Trilogy. I will obtain arterial blood gas in the morning. Recommend flutter device. Continue with nebulizers. Will need followup CT chest in 6 to 8 weeks. Will change antibiotics to Zosyn. Smoking cessation education and counseling was performed. Thank you for allowing me to participate in the care of the patient. Will follow up with you. [id number]/[facility] #: [id number] ELISEO
[2019-10-22] MEDS ORDERED: Furosemide IV* 10 MG/ML VIAL (40 MG) IV SLOW PU ONE (20:00)
[2019-10-22] MEDS: ZOSYN 3.375 GM Q8H per EXTENDED INFUSION IVPB SCH ×2 (20:01)
[2019-10-22] MEDS: Nicotine Patch Removal NOTE FOLLOW UP SCH (20:01)
[2019-10-22] MEDS: acetaZOLAMIDE TAB* 250 MG PO SCH (20:07)
[2019-10-23 05:32] LABS: BUN/Creatinine Ratio 36.4 (8-20); Calcium 10.2 mg/dL (8.6-10.3); EGFR African American 124.3 (>60); EGFR Non-African American 102.7 (>60); Potassium 4.3 mmol/L (3.5-5.0)
[2019-10-23 05:45] LABS: ABS Lymphocytes 1.6 10^3/ul (1.0-4.8); ABS Neutrophils 8.6 10^3/ul (1.5-7.7); Eosinophil % 0.2 %; Hematocrit 41 % (42-52); Hemoglobin 13.6 g/dL (14.0-18.0); Mean Corpuscular HGB Conc 33 g/dL (31-36); Mean Corpuscular Hemoglobin 32 pg (27-31); Mean Corpuscular Volume 97 fL (80-94); Nucleated Red Blood Cells % 0.1; Platelet Count Platelets clumped. 10^3/uL (150-450); Red Cell Distribution Width 15 % (10-15); White Blood Count 11.1 10^3/uL (3.5-10.8)
[2019-10-23] MEDS: ZOSYN 3.375 GM Q8H per EXTENDED INFUSION IVPB SCH ×6 (06:20→21:06)
[2019-10-23] MEDS: Mometasone/Formoter 200/5 MDI INH SCH ×2 (07:21→19:27)
[2019-10-23] MEDS: Magnesium Oxide TAB* 400 MG PO SCH ×2 (08:52→21:03)
[2019-10-23] MEDS: Calcium Carbonate CHEW TAB* 500 MG (TUMS) PO SCH ×4 (08:53→21:03)
[2019-10-23] MEDS: Aspirin EC TAB* 81 MG TAB.EC PO SCH (08:53)
[2019-10-23] MEDS: Witch Hazel PAD* JAR TOPICAL SCH (08:57)
[2019-10-23] MEDS: Enoxaparin(*) 40 MG/0.4 ML SYR SUBCUT SCH (08:57)
[2019-10-23] MEDS: Nicotine PATCH 14 MG/24 HR* PATCH TRANSDERM SCH (09:01)
[2019-10-23] MEDS: acetaZOLAMIDE TAB* 250 MG PO SCH ×2 (09:03→21:03)
--- NOTE | 2019-10-23 16:43 | PN ---
Subjective Date of Service: 10/23/19 Interval History: Mr. Graves is a middle-aged white male who is seen walking the halls. He reports that he continues to have some MOREL, but notes that he stops and rests when he is dyspneic. He denies SOB at rest and is currently on 3L O2. He continues to have a chronic, nonproductive cough, which had worsened, but has improved since admission. No other complaints today. Family History: Unchanged from Admission Social History: Unchanged from Admission Past Medical History: Unchanged from Admission Objective Active Medications: Acetaminophen (Tylenol Tab*) 650 mg PO Q4H PRN PRN Reason: PAIN - MILD Last Admin: 10/22/19 20:06 Dose: 650 mg Acetazolamide (Diamox Tab*) 250 mg PO BID [facility] Stop: 10/25/19 09:01 Last Admin: 10/23/19 09:03 Dose: 250 mg Al Hydrox/Mg Hydrox/Simethicone (Maalox Plus*) 30 ml PO Q6H PRN PRN Reason: INDIGESTION Last Admin: 10/19/19 23:29 Dose: 30 ml Albuterol (Ventolin 2.5 Mg/3 Ml Neb.Josefa*) 2.5 mg INH Q2H PRN PRN Reason: SOB/WHEEZING Albuterol/Ipratropium (Duoneb (Albuterol 2.5 Mg/Ipratropium 0.5 Mg)) 1 neb INH Q4H PRN PRN Reason: SOB/WHEEZING Aspirin (Aspirin Ec Tab*) 81 mg PO DAILY [facility] Last Admin: 10/23/19 08:53 Dose: 81 mg Calcium Carbonate (Tums*) 1,000 mg PO QID [facility] Last Admin: 10/23/19 13:03 Dose: 1,000 mg Enoxaparin Sodium (Lovenox(*)) 40 mg SUBCUT Q24H [facility] Last Admin: 10/23/19 08:57 Dose: 40 mg Piperacillin Sod/Tazobactam (Sod 3.375 gm/ Sodium Chloride) 100 mls @ 25 mls/ hr IVPB Q8H [facility] Last Admin: 10/23/19 13:04 Dose: 25 mls/hr Ibuprofen (Motrin Tab*) 400 mg PO Q6H PRN PRN Reason: mild to moderate pain Last Admin: 10/22/19 17:22 Dose: 400 mg Magnesium Oxide (Magox 400 Tab*) 400 mg PO BID [facility] Last Admin: 10/23/19 08:52 Dose: 400 mg Mometasone Furoate/Formoterol Fumar (Dulera 200/5 Mdi*) 2 puff INH BID [facility] Last Admin: 10/23/19 07:21 Dose: 2 puff Nicotine (Nicotine Patch 14 Mg/24 Hr*) 1 patch TRANSDERM DAILY [facility] Last Admin: 10/23/19 09:01 Dose: Not Given Pharmacy Consult (Zosyn Per Pharmacy*) 1 note FOLLOW UP .ZOSYN PER PHARMACY [facility] Pharmacy Profile Note (Nicotine Patch Removal Note*) 1 note FOLLOW UP 2100 [facility] Last Admin: 10/22/19 20:01 Dose: Not Given Prednisone (Deltasone 20 Mg Tab) 40 mg PO DAILY [facility] Last Admin: 10/23/19 08:52 Dose: 40 mg Prochlorperazine Edisylate (Compazine Inj*) 10 mg IV Q6H PRN PRN Reason: NAUSEA/VOMITING Throat Lozenges (Chloraseptic Nasrin*) 1 nasrin MT Q6H PRN PRN Reason: SORE THROAT Last Admin: 10/16/19 15:19 Dose: 1 nasrin Witch Tamika (Tucks*) 1 pad TOPICAL DAILY [facility] Last Admin: 10/23/19 08:57 Dose: 1 pad Vital Signs: Temp Pulse Resp BP Pulse Ox 97 F 99 20 103/64 94 10/23/19 03:15 10/23/19 03:15 10/23/19 08:00 10/23/19 03:15 10/23/19 07:24 Oxygen Devices in Use Now: Nasal Cannula Appearance: Mr. Graves is thin, cachectic-appearing middle-aged white male who appears older than his stated age. He has mild increased work of breathing and is on 3L supplemental O2. Eyes: No Scleral Icterus, PERRLA Ears/Nose/Mouth/Throat: NL Teeth, Lips, Gums, Clear Oropharnyx, Mucous Membranes Moist Neck: NL Appearance and Movements; NL JVP, Trachea Midline Respiratory: - - mild increased work of breathing with O2 in place; diminished breath sounds b/l with faint end expiratory wheezing at bases Cardiovascular: NL Sounds; No Murmurs; No JVD, RRR, - - trace LE edema Extremities: - - digital clubbing Neurological: Alert and Oriented x 3 - Nutrition: Malnutrition Diagnosis/Plan Malnutrition Assessment by Registered Dietitian: Malnutrition Assessment Clinical Characteristics Severe,Environmental Malnutrition Assessment: Muscle Wasting - Temporal (severe) Criteria Inadequate Oral Intake - Pt reports a good appetite, though states his intake is limited while residing in a homeless skilled nursing and utilizing food stamps to obtain food; consumed 100% L today - Anticipate meeting <75% nutrient needs >3 mos (moderate) Unintentional Weight Loss - Pt reports unintentional wt loss x3 mos; current wt 127lb, UBW 140lb - 9.2% loss x3 mos (severe) Underweight - BMI 17.2 (notable) Malnutrition Assessment: Nutritional Supplementals/Nourishments - Will Interventions send Ensure Enlive (350kcal, 20g prot/serv) at B , L, and D daily, in addition to Fruited Yogurt (120kcal, 8g prot/serv) and Cheddar Cheese ( 120kcal, 7g prot/serv) at 10:00 and 15:00 daily , to optimize kcal/prot intake; will monitor continued acceptance. Additionally, encouraged pt to discuss barriers to adequate nutrition w/ CM/SW; pt receptive Textures Modifications - Encouraged pt to request modified textures as desired; pt receptive; will monitor tolerance and make further recommendations as indicated Glycemic Control - Dietary restriction not indicated at this time; will continue to monitor BG/FS in the setting of steroid med use Malnutrition Assessment: Goals 1) Pt will tolerate least restrictive dietary textures w/o difficulty chewing 2) Adequate po intake to replete lean body mass , support wt gain and hydration status 3) Maintain fluid/electrolyte balance w/ adequate po intake 4) Maintain glycemic control w/ adequate po intake w/o need for dietary restriction in the setting of steroid med use 5) Maintain bowel regularity w/ adequate po intake w/o development of diarrhea/constipation Result Diagrams: 10/23/19 04:44 10/23/19 04:44 Additional Lab and Data: Laboratory Results - last 24 hr Microbiology and Other Data: Microbiology 10/16/19 16:30 Gram Stain - Final Sputum Sputum Culture - Preliminary Pseudomonas Aeruginosa 10/16/19 00:00 Aerobic Blood Culture - Preliminary Blood Venous No Growth Day 2 Anaerobic Blood Culture - Preliminary No Growth Day 2 10/16/19 00:00 Aerobic Blood Culture - Preliminary Blood Venous No Growth Day 2 Anaerobic Blood Culture - Preliminary No Growth Day 2 10/15/19 23:55 Urine Culture - Final Urine No Growth (<1,000 CFU/mL) 10/16/19 01:00 Legionella Urinary Antigen - Final Urine Negative Legionella Antigen Streptococcus pneumoniae Ag Screen - Final Negative S. pneumo Antigen Assess/Plan/Problems-Billing Assessment: Patient is a 59yo male with a PMH for COPD with chronic hypoxic respiratory failure, Squamous Cell Lung Cancer S/P lobectomy, here with worsening SOB, found to have COPD exacerbation, improving on treatment. Patient with elevated trops, abnormality on EKG; ST indeterminate with fixed septal defect and global hypokinesis. - Patient Problems (1) COPD with exacerbation Comment: -slowly improving -continue duonebs, cefepime -continue prednisone; will taper by 10 mg q5d -chronic triple inhaler therapy -goal O2 88-92% -on 3L at this time -colonization with Pseudomonas likely contributing to exacerbation -continue for 7 day course of antipseudomonal antibiotics (started on ) -pulmonology consulted for further recommendations, elevated CO2 -add on Diamox x3d -plan for discharge with Trilogy, home O2 (2) Diastolic heart failure Comment: -Echo EF 55-60% with grade 1 diastolic dysfunction -appears to have mild exacerbation with LE edema; improving -may be contributing to dyspnea -improved with diuresis; will transition to PO tomorrow (3) Chest pain Comment: -extertional, resolved with rest -reports no CP in last 3 days -associated with slightly increased trop -patient has known severe pHTN -could be related to RV strain -patient has risk factors, YOHANA score of 3 -shows intermediate risk due to fixed septal defect -cardiology consulted; thank you for recommendations; no other cardiac eval necessary at this time -will discharge with PO diuretics (4) Shortness of breath Comment: -continues to improve, although still requiring supplemental O2 -likely related to COPD exacerbation and possibly severe pHTN -will likely discharge with Trilogy, home O2 (5) PHT (pulmonary hypertension) Comment: -reports he only wears his supplemental oxygen approx 2 to 3 hrs a day when he is suppose to be wearing it 24 hrs. Reports this is bc his concentrator is in his bedroom and he does not have tanks. Will discuss with SW to get portable concentrator -likely from chronic hypoxia and oxygen non-compliance -severe, with RV strain on echo -would recommend continuous O2 (6) Abnormal morphology of platelets Comment: -recurrent platelet clumping on CBC -unclear significance, normal number with citrated tube -no history of thrombosis (7) Tobacco abuse counseling Comment: -discussed importance of quitting -would benefit from total abstinence -declining gum, patches (8) DVT prophylaxis Comment: -lovenox SQ (9) Full code status Status and Disposition: Inpatient with COPD exacerbation, abnormal stress test. Discharge when medically stable.
[2019-10-23] MEDS: Acetaminophen TAB* 325 MG PO PRN (21:04)
[2019-10-23] MEDS: Nicotine Patch Removal NOTE FOLLOW UP SCH (21:04)
[2019-10-24] MEDS: ZOSYN 3.375 GM Q8H per EXTENDED INFUSION IVPB SCH ×4 (05:34→13:04)
[2019-10-24 06:33] LABS: ABS Lymphocytes 1.7 10^3/ul (1.0-4.8); ABS Monocytes 1.2 10^3/ul (0-0.8); ABS Neutrophils 11.6 10^3/ul (1.5-7.7); Eosinophil % 0.2 %; Hematocrit 42 % (42-52); Hemoglobin 13.6 g/dL (14.0-18.0); Lymphocyte % 11.4 %; Mean Corpuscular HGB Conc 33 g/dL (31-36); Mean Corpuscular Hemoglobin 32 pg (27-31); Mean Corpuscular Volume 97 fL (80-94); Red Blood Count 4.27 10^6 /uL (4.18-5.48); Red Cell Distribution Width 15 % (10-15); White Blood Count 14.5 10^3/uL (3.5-10.8)
[2019-10-24 06:54] LABS: Platelet Count Platelets clumped. 10^3/uL (150-450)
[2019-10-24 07:21] LABS: Calcium 10.5 mg/dL (8.6-10.3)
[2019-10-24 07:27] LABS: BUN/Creatinine Ratio 43.2 (8-20); EGFR African American 130.1 (>60); EGFR Non-African American 107.5 (>60); Potassium 4.2 mmol/L (3.5-5.0)
[2019-10-24] MEDS: Magnesium Oxide TAB* 400 MG PO SCH (08:11)
[2019-10-24] MEDS: Aspirin EC TAB* 81 MG TAB.EC PO SCH (08:11)
[2019-10-24] MEDS: acetaZOLAMIDE TAB* 250 MG PO SCH (08:12)
[2019-10-24] MEDS: Enoxaparin(*) 40 MG/0.4 ML SYR SUBCUT SCH (08:13)
[2019-10-24] MEDS: Calcium Carbonate CHEW TAB* 500 MG (TUMS) PO SCH ×2 (08:13→13:05)
[2019-10-24] MEDS: Nicotine PATCH 14 MG/24 HR* PATCH TRANSDERM SCH (08:15)
[2019-10-24] MEDS ORDERED: Furosemide TAB* 20 MG PO SCH (09:00)
[2019-10-24] MEDS: Mometasone/Formoter 200/5 MDI INH SCH (09:26)
[2019-10-24] MEDS: Witch Hazel PAD* JAR TOPICAL SCH (13:05)
[2019-10-24 15:45] VITALS: BP 94/66
--- NOTE | 2019-10-25 03:10 | DS ---
AMENDED REPORT NOW INCLUDES DESIGNATED COSIGNER - ESIGNED BEFORE ADJUSTMENTS CC: Dr. Mcneill; Dr. Mccauley * DISCHARGE SUMMARY: DATE OF ADMISSION: 10/15/19 DATE OF DISCHARGE: 10/24/19 PROVIDER: Shirley Tucker NP ATTENDING PHYSICIAN: Dr. Yepez.* (DICTATED BYM SHIRLEY TUCKER NP) PRIMARY CARE PHYSICIAN: None. CONSULTING PHYSICIANS: Dr. Mcneill and Dr. Mccauley. PRIMARY DIAGNOSES: 1. Chronic obstructive pulmonary disease exacerbation. 2. Pulmonary hypertension with right-sided heart strain and diastolic heart failure. SECONDARY DIAGNOSES: 1. History of squamous cell lung cancer. 2. Tobacco abuse. PROCEDURES: None. DIAGNOSTIC STUDIES: Nuclear med stress test revealed intermediate risk and the impression showed a moderate to large fixed defect involving the septum and decreased ejection fraction of 43% with global hypokinesis. Chest x-ray on 10/15/19 showed findings consistent with COPD, but no evidence for acute disease. Chest CTA showed no pulmonary emboli, findings which in the proper clinical setting can be seen in pulmonary hypertension, moderate emphysema with bilateral lower lobe atelectasis possibly due to aspiration pneumonia is also considered and chronic right mid lobe and new left lower lobe scarring. Transthoracic echocardiogram showed an ejection fraction of 55% to 60%, wall motion normal with no regional wall motion abnormalities and a grade I diastolic dysfunctioning. The right ventricle severely dilated systolic function and severely reduced, systolic pressure is moderately to severely increased, ventricular septal flattening. Right atrium is mild to moderately dilated. PERTINENT LAB DATA: The next set of values, refer to ABGs. ABG, pH 7.42, pCO2 of 58, pO2 of 85, HCO3 of 33.3, O2 saturation 98.7 and base excess 10.8. WBCs 14.5 which can be attributed to the use of prednisone and that hemoglobin 13.6, hematocrit 42, MCH 97, MCV 32, chloride 100, creatinine 0.74, BUN 32, BUN/ creatinine ratio 43.2, calcium 10.5. Sputum was positive for Pseudomonas aeruginosa. Urine was negative for legionella or Strep pneumoniae antigen. HISTORY OF PRESENT ILLNESS/HOSPITAL COURSE: This is a 59-year-old male with a past medical history significant for COPD; squamous cell lung cancer, status post left upper lobectomy and tobacco abuse, who came to the emergency room on 10/15/19 for significant shortness of breath that had developed over 2 to 3 weeks and progressively worsening. He denied any orthopnea, it was not positional in nature and was worse with exertion. He was having some dry heaves , but no abdominal pain, no fever, chills, no weight gain, swelling or edema in the bilateral lower extremities. He was diagnosed with COPD exacerbation and possible CHF. He was started on DuoNeb, prednisone and azithromycin initially. It turned out that the patient had been using his concentrator at home and was supposed to have been on oxygen at all times, but had not been compliant with the fact that he stated he did not have any portable oxygen tanks to be able to leave the house and that he found his concentrator cumbersome in some way. The next day he improved somewhat, but was still wheezing and short of breath. He had an echocardiogram that revealed severe pulmonary hypertension and RV strain that was felt to be likely secondary to chronic hypoxia and oxygen noncompliant. Over the next several days, there was not much improvement and cefepime was added to his antibiotic regimen on 10/18/19. On , his wheezing, cough and shortness of breath at rest was improved, though still short of breath with exertion. On 10/20/19, he had sudden onset left-sided chest pain while walking to the bathroom, lasting 10 minutes during which his shortness of breath worsened. His YOHANA score was 3. Trops were slightly increased and a stress was performed the next day and Dr. Mccauley was consulted. The nuclear stress test revealed an intermediate cardiac risk; however, despite the impression of a fixed septal defect, Dr. Mccauley stated that the nuclear imaging showed the septal wall was moving normally, which correlated to the reading of the echocardiogram. 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 No further cardiac workup was necessary and he has had no further episodes of chest pain during his hospitalization. On 10/22/19, Dr. Mcneill was consulted for hypoxic respiratory failure and an elevated bicarb. She recommended flutter valve and changed the antibiotics to Zosyn and recommended a followup CT scan in 6 or 8 weeks. As of today, he continues to have dyspnea on exertion , but he has found ways to cope including taking frequent rest stops while ambulating in the hallway. He had nonproductive cough persist, this has improved since his admission and has no fevers. REVIEW OF SYSTEMS: A 12-point system review was performed and it was positive for dyspnea on exertion and nonproductive cough. Otherwise, denies any lightheadedness, dizziness, chest pain, palpitations, abdominal pain, nausea, vomiting, issues moving his bowel or bladder. PHYSICAL EXAMINATION: Vital Signs: 97.3 Fahrenheit, 100 pulse, 16 respirations , 97% oxygen on 3 L via nasal cannula, and 94/66 blood pressure. General: This is a cachectic ill-looking gentleman seen sitting up in a chair, in no acute distress. HEENT: Conjunctivae pink and moist. PERRLA. EOMs intact. Oropharynx clear. Mucous membranes moist. Neck is supple. Cardiac: S1, S2 present. Heart rate regular. No murmurs, gallops, or rubs appreciated. Lung sounds diminished in the bases bilaterally, but clear throughout on 3 L of oxygen via nasal cannula. Abdomen: Soft, nontender, nondistended with positive bowel sounds x4. Musculoskeletal: No clubbing or cyanosis of the digits. Neurologic: Sensation intact to light touch. No focal deficits appreciated. Skin is intact with no rashes or lesions. Psych: He is alert and oriented x3. Thought content organized. DISCHARGE PLAN: He is to go home with a regular diet. Activity is as tolerated and he is to wear his oxygen at all times and he used the trilogy machine at nighttime. He is to return to the hospital should he develop increasing shortness of breath that is not relieved by inhalers or use of oxygen , worsening chest pain. He is being sent home with 2 full size tanks of oxygen and [facility] will meet him on Sunday and discuss portable oxygen tank use. He already has an oxygen concentrator at home which he will continue to use. PLAN FOR EACH CONDITION: 1. COPD exacerbation. He is to use the trilogy machine for sleep as well as use continuous oxygen via nasal cannula. He is to follow up with Dr. Mcneill in 1 to 2 weeks and continue his Dulera, Spiriva and albuterol inhalers. At this point, he is declining smoking cessation. He is also to continue with his prednisone taper. He should have a followup CT scan in 6 to 8 weeks. 2. Sputum culture positive for Pseudomonas. He received Zosyn, which I have transitioned over to clindamycin for another 5 days. 3. Pulmonary hypertension with RV strain. I believe this is secondary to noncompliance with his oxygen. He states that he had had no portable tanks for home and as previously stated, he is being discharged with O2 tanks and will be seen by Romie. I made him aware that should he not use his oxygen consistently, it could be to further lung and cardiac deterioration. 4. Diastolic heart failure diagnosed via echocardiogram. His ejection fraction is 55% to 60% with grade 1 diastolic dysfunction. He is to continue his furosemide at home to reduce the strain. 5. Tobacco abuse. At this time, the patient is not ready to quit smoking, though he would benefit from total abstinence. He is declining any gum or patches. DISCHARGE MEDICATIONS: New medications upon discharge: 1. Furosemide 20 mg p.o. daily. 2. Aspirin 81 mg p.o. daily. 3. Clindamycin 600 mg p.o. q.8 hours x5 days and prednisone 30 mg p.o. daily with taper down of 10 mg every 5 days until he gets to 10 mg and then he will taper from 10 to 5 for 5 days and then stop. Medications to continue upon discharge: 1. Ibuprofen 200 mg p.o. q.6 hours p.r.n. 2. Dulera 2 puffs inhalation b.i.d. 3. Spiriva 4 g inhalation daily. 4. Albuterol nebulizer 2.5 mg inhalation q.4 hours p.r.n. CONDITION UPON DISCHARGE: Fair. DISPOSITION: To home. TIME SPENT: Time spent on the patient is about 60 minutes with 30 of that spent [id number]. SHIRLEY TUCKER, SURGICAL SERVICES ASST [id number]/[facility] #: [id number] ELISEO
== END 2019-10-24 18:15 | disposition home or self-care (01) | DRG 140 ==
LOC: ED 20:25 → MEDTELE 23:01
PROVIDERS: ADMIT Nurse Practitioner Family; ATTEND Internal Medicine
PROC: 4A02XM4 Measurement of Cardiac Total Activity, External Approach (ICD-10-PCS; principal; 2019-10-21)
DX: J44.1 Chronic obstructive pulmonary disease with (acute) exacerbation (principal); I50.33 Acute on chronic diastolic (congestive) heart failure; J96.11 Chronic respiratory failure with hypoxia; I47.1 Supraventricular tachycardia; F17.210 Nicotine dependence, cigarettes, uncomplicated; R79.89 Other specified abnormal findings of blood chemistry; I27.20 Pulmonary hypertension, unspecified; R74.0 Nonspecific elevation of levels of transaminase and lactic acid dehydrogenase [LDH]; I07.1 Rheumatic tricuspid insufficiency; D53.9 Nutritional anemia, unspecified; E86.0 Dehydration; B96.5 Pseudomonas (aeruginosa) (mallei) (pseudomallei) as the cause of diseases classified elsewhere; E83.42 Hypomagnesemia; Z85.118 Personal history of other malignant neoplasm of bronchus and lung; Z90.2 Acquired absence of lung [part of]; Z91.19 Patient's noncompliance with other medical treatment and regimen; Z99.81 Dependence on supplemental oxygen; Z79.899 Other long term (current) drug therapy
CPT/HCPCS: 36415; 36600; 71045; 71275; 78452; 80048; 80053; 80061; 81003; 81015; 82248; 82803; 83036; 83605; 83735; 83880; 84484; 85025; 85049; 85610; 85730; 87040; 87070; 87077; 87086; 87186; 87205; 87389; 87899; 93005; 93017; 93306; 94640; 96374; 96375; 99284; A9270-GY; A9502; J0280; J0456; J0692; J1644; J1650; J1940; J2270; J2543; J2785; J2930; J3475; J7512; Q9967

== ENCOUNTER 2020-12-07 16:41 | Inpatient (IN) ==
[2020-12-07] MEDS ORDERED: Albuterol HFA INHALER 8 gm MDI INH ONE ×2 (17:00→19:57)
[2020-12-07 18:01] LABS: Hematocrit 38 % (42-52); Hemoglobin 12.4 g/dL (14.0-18.0); Mean Corpuscular HGB Conc 33 g/dL (31-36); Mean Corpuscular Hemoglobin 32 pg (27-31); Mean Corpuscular Volume 98 fL (80-94); Red Blood Count 3.87 10^6 /uL (4.18-5.48); Red Cell Distribution Width 14 % (10-15)
[2020-12-07 18:03] LABS: Albumin 3.8 g/dL (3.2-5.2); Albumin/Globulin Ratio 1.3 (1-3); Calcium 9.3 mg/dL (8.6-10.3); EGFR African American 127.7 (>60); EGFR Non-African American 105.5 (>60); Potassium 4.1 mmol/L (3.5-5.0); Total Bilirubin 0.5 mg/dL (0.2-1.0); Total Protein 6.8 g/dL (6.4-8.9)
[2020-12-07 18:04] LABS: Troponin I 0.02 ng/mL (<0.03)
[2020-12-07] MEDS ORDERED: NS 0.9% 1000 ml BAG 1,000 ML IV ONE (18:23)
[2020-12-07 19:12] LABS: White Blood Count 8.5 10^3/uL (3.5-10.8)
[2020-12-07 19:13] LABS: Eosinophil % 0.9 %; Lymphocyte % 7.9 %
[2020-12-07] MEDS ORDERED: methylPREDNISolone 125 mg 2 ML VIAL IV ONE (19:56)
[2020-12-07 21:12] LABS: Magnesium 1.2 mg/dL (1.9-2.7)
[2020-12-07] MEDS ORDERED: Albuterol HFA INHALER 8 gm MDI INH PRN (21:17)
[2020-12-07] MEDS ORDERED: Magnesium Sulf 4 GM/100 ML IV 4,000 MG/100 ML BAG IVPB ONE (21:35)
[2020-12-07] MEDS ORDERED: Umeclidinium 62.5 MDI(NF) MDI INH SCH (22:00)
[2020-12-07] MEDS ORDERED: Enoxaparin 40 MG/0.4 ML SYR SUBCUT SCH (22:30)
[2020-12-07 23:14] LABS: Troponin I 0.03 ng/mL (<0.03)
[2020-12-08] MEDS: Albuterol HFA INHALER 8 gm MDI INH SCH ×4 (01:34→19:50)
[2020-12-08] MEDS: methylPREDNISolone 125 mg 2 ML VIAL IV SCH ×2 (02:18→08:11)
[2020-12-08 05:45] LABS: ABS Lymphocytes 0.2 10^3/ul (1.0-4.8); ABS Monocytes 0.2 10^3/ul (0-0.8); ABS Neutrophils 11.2 10^3/ul (1.5-7.7); Hematocrit 37 % (42-52); Hemoglobin 12.1 g/dL (14.0-18.0); Lymphocyte % 1.8 %; Mean Corpuscular HGB Conc 33 g/dL (31-36); Mean Corpuscular Hemoglobin 32 pg (27-31); Mean Corpuscular Volume 96 fL (80-94); Nucleated Red Blood Cells % 0.1; Red Blood Count 3.81 10^6 /uL (4.18-5.48); Red Cell Distribution Width 14 % (10-15); White Blood Count 11.5 10^3/uL (3.5-10.8)
[2020-12-08 05:50] LABS: Calcium 9.1 mg/dL (8.6-10.3); EGFR Non-African American 122.3 (>60)
[2020-12-08] MEDS: Mometasone/Formoter 200/5 MDI INH SCH ×2 (07:05→19:57)
[2020-12-08] MEDS: SPIRIVA Respimat (tiotropium) 2.5 mcg/inh Inhaler INH SCH (07:08)
[2020-12-08] MEDS: Aspirin EC 81 mg TAB.EC (enteric coated) PO SCH (08:11)
[2020-12-08] MEDS ORDERED: IOHEXOL IV ONE (10:37)
[2020-12-08] MEDS: methylPREDNISolone SOD 40 mg/ml 1 ml VIAL IV SCH ×2 (14:48→21:43)
[2020-12-08] MEDS ORDERED: Iohexol 300 (CONTRAST) 10 ML SDV IV ONE (16:18)
[2020-12-09] MEDS: Albuterol HFA INHALER 8 gm MDI INH SCH ×3 (01:12→12:06)
[2020-12-09] MEDS: Mometasone/Formoter 200/5 MDI INH SCH (08:20)
[2020-12-09] MEDS: SPIRIVA Respimat (tiotropium) 2.5 mcg/inh Inhaler INH SCH (08:20)
[2020-12-09] MEDS: methylPREDNISolone SOD 40 mg/ml 1 ml VIAL IV SCH (09:50)
[2020-12-09] MEDS: Aspirin EC 81 mg TAB.EC (enteric coated) PO SCH (09:51)
[2020-12-09 10:15] VITALS: BP 113/60
[2020-12-09 10:37] LABS: Hematocrit 35 % (42-52); Hemoglobin 11.5 g/dL (14.0-18.0); Mean Corpuscular HGB Conc 32 g/dL (31-36); Mean Corpuscular Hemoglobin 31 pg (27-31); Mean Corpuscular Volume 97 fL (80-94); Red Blood Count 3.65 10^6 /uL (4.18-5.48); Red Cell Distribution Width 14 % (10-15); White Blood Count 13.1 10^3/uL (3.5-10.8)
[2020-12-09 11:06] LABS: Calcium 9.7 mg/dL (8.6-10.3); EGFR Non-African American 122.3 (>60); Magnesium 1.3 mg/dL (1.9-2.7); Potassium 4.1 mmol/L (3.5-5.0)
[2020-12-09 12:08] LABS: ABS Lymphocytes 0.3 10^3/ul (1.0-4.8); ABS Monocytes 0.4 10^3/ul (0-0.8); ABS Neutrophils 12.4 10^3/ul (1.5-7.7); Lymphocyte % 2.2 %; Platelet Count Platelets clumped. 10^3/uL (150-450)
[2020-12-09] MEDS ORDERED: Magnesium Sulfate IV 3 GM in NS 0.9% 100 ml BAG 100 ML IVPB ONE (12:22)
[2020-12-09 13:59] LABS: Platelet Count Platelets clumped. 10^3/uL (150-450)
[2020-12-09 14:01] LABS: Platelet Count, Citrated 249 10^3/ul (150-450)
== END 2020-12-09 13:30 | disposition short-term general hospital (02) | DRG 136 ==
LOC: ED 16:41 → MED 16:41
PROVIDERS: ADMIT Internal Medicine; ATTEND Internal Medicine